=== PATIENT | male | born 1965 | race Caucasian/White ===

== ENCOUNTER 2017-11-15 16:20 | Inpatient (IN) ==
--- NOTE | 2017-11-15 17:40 | ED ---
[facility] General Chief Complaint: Psychiatric Symptoms Stated Complaint: Psych Eval / VCSO Time Seen by Provider: 11/15/17 17:28 Source: patient Mode of arrival: ambulatory Limitations: no limitations History of Present Illness HPI Narrative: 52-year-old male presents to the emergency department under Isaacs act. According to the Isaacs act report the patient is slowly decompensating for some time; he is paranoid, confused, depressed and isolating ; he is refusing to eat, take meds, refuses exams or go to the hospital and he has lost 40 pounds in 6 months; and he requires physical and psychiatric intervention. The patient denies suicidal or homicidal ideations. Denies hallucinations. Denies illicit drug use, tobacco use, alcohol abuse. He has no medical complaints at this time. He denies chest pain, shortness of breath, abdominal pain, nausea, vomiting, change in urine or stool. When I asked him why he has not been eating he says "because I guess I am just not hungry." He has no primary care provider. He says he has allergies to latex. Denies significant past medical history. Has no other medical complaints. No other modifying factors or associated signs and symptoms. Related Data Home Medications Medication Instructions Recorded Confirmed Unable to Obtain Home Meds 11/15/17 11/15/17 Allergies Allergy/AdvReac Type Severity Reaction Status Date / Time No Known Allergies Allergy Unverified 11/15/17 17:17 Review of Systems ROS Unobtainable All other systems reviewed negative except as stated in [facility] Social History Social History Substance History: Unable to Obtain Smoking Status: Unknown if ever smoked How Often Do You Have a Drink Containing Alcohol: Unable to Obtain Recent Travel in [facility] within the Last 8 Weeks: No Recent Out of Country Travel within the Last 8 Weeks: No Immunization History Tetanus Immunization: Unable to Assess Hx Influenza Vaccine This Season: Unable to Assess Exam Narrative Exam Narrative: When I asked the patient if I could do a physical exam he said no. GENERAL: Thin, male patient, in no acute distress SKIN: Warm and dry. HEAD: Atraumatic. Normocephalic. EYES: Pupils equal and round. ENT: Mucosa pink and moist. NECK: Supple. Trachea midline. CARDIOVASCULAR: Regular rate RESPIRATORY: No accessory muscle use. GASTROINTESTINAL: Flat MUSCULOSKELETAL: No obvious deformities. No clubbing. No cyanosis. No edema. NEUROLOGICAL: Awake and alert. No obvious cranial nerve deficits. Motor grossly within normal limits. Normal speech. Moves all extremities. 5/5 strength to all extremities. PSYCHIATRIC: No delusional thought processes. No hallucinations. Course Initial Documented Vital Signs Temperature 98.6 F 11/15/17 16:28 Pulse Rate 90 11/15/17 16:28 Respiratory Rate 20 11/15/17 16:28 Blood Pressure 106/58 L 11/15/17 16:28 Pulse Oximetry 96 11/15/17 16:28 Last Documented Vital Signs Temperature 97.4 F L 11/15/17 22:23 Pulse Rate 66 11/15/17 22:23 Respiratory Rate 18 11/15/17 22:23 Blood Pressure 103/67 11/15/17 22:23 Pulse Oximetry 100 11/15/17 22:23 Medical Decision Making MDM Narrative Medical decision making narrative: Patient presents under a Isaacs act. Physical examination and vital signs are essentially unremarkable. Patient has no medical complaints to report. Psych screen has been ordered. If the laboratory results are unremarkable, the patient will be medically cleared for psychiatric evaluation and disposition. Differential Diagnosis Differential Diagnosis: Depression, psychosis, failure to thrive, medical clearance for psychiatric admission Lab Data Result diagrams: 11/15/17 16:30 11/15/17 16:30 Lab Results 11/15/17 11/15/17 11/15/17 Range/Units 16:30 16:30 16:30 WBC 2.0 L (4.0-11.0) th/mm3 RBC 4.56 (4.50-5.90) mil/mm3 Hgb 14.0 (13.0-17.0) gm/dL Hct 40.2 (39.0-51.0) % MCV 88.1 (80.0-100.0) fL MCH 30.7 (27.0-34.0) pg MCHC 34.8 (32.0-36.0) % RDW 14.7 (11.6-17.2) % Plt Count 119 L (150-450) th/mm3 MPV 9.2 (7.0-11.0) fL Neut % (Auto) 61.8 (16.0-70.0) % Lymph % (Auto) 27.0 (9.0-44.0) % [place] % (Auto) 8.1 H (0.0-8.0) % Eos % (Auto) 2.3 (0.0-4.0) % Baso % (Auto) 0.8 (0.0-2.0) % Neut # (Auto) 1.2 L (1.8-7.7) th/mm3 Lymph # (Auto) 0.5 L (1.0-4.8) th/mm3 [place] # (Auto) 0.2 (0.0-0.9) th/mm3 Eos # (Auto) 0.0 (0.0-0.4) th/mm3 Baso # (Auto) 0.0 (0.0-0.2) th/mm3 WBC Differential . Differential Comment Auto diff final Sodium 140 (136-145) meq/L Potassium 3.2 L (3.5-5.1) meq/L Chloride 100 (98-107) meq/L Carbon Dioxide 21.6 (21.0-32.0) meq/L Anion Gap 18 H (5-15) meq/L BUN 11 (7-18) mg/dL Creatinine 0.98 (0.60-1.30) mg/dL Estimated GFR 81 L (>89) mL/min Random Glucose 66 L (74-106) mg/dL Calcium 9.0 (8.5-10.1) mg/dL Total Bilirubin 0.8 (0.2-1.0) mg/dL AST 31 (15-37) U/L ALT 28 (12-78) U/L Alkaline Phosphatase 76 (45-117) U/L Total Protein 7.0 (6.4-8.2) g/dL Albumin 4.1 (3.4-5.0) g/dL TSH 1.530 (0.358-3.740) uIU/mL Salicylates 2.3 L (2.8-20.0) mg/dL Acetaminophen Less than 2.0 L (10.0-30.0) mcg/mL Serum Alcohol Less than 3 (0-5) mg/dL Discharge Plan Discharge Disposition Patient Disposition: 30 Still Patient Discharge Condition Condition: Stable Physicians Team ED Provider: Lucy Aleman ED Midlevel Provider: Lilia Olivia Primary Care Provider: UNKNOWN, Attending Provider: Ezequiel Peng Status ED Status: Admitted Patient
[2017-11-15 18:36] LABS: Baso % (Auto) 0.8 % (0.0-2.0); Eos % (Auto) 2.3 % (0.0-4.0); Hematocrit 40.2 % (39.0-51.0); Lymph # (Auto) 0.5 th/mm3 (1.0-4.8); Mean Corpuscular HGB Conc 34.8 % (32.0-36.0); Mean Corpuscular Hemoglobin 30.7 pg (27.0-34.0); Mean Corpuscular Volume 88.1 fL (80.0-100.0); Mean Platelet Volume 9.2 fL (7.0-11.0); Mono # (Auto) 0.2 th/mm3 (0.0-0.9); Mono % (Auto) 8.1 % (0.0-8.0); Neut # (Auto) 1.2 th/mm3 (1.8-7.7); Neut % (Auto) 61.8 % (16.0-70.0); Platelet Count 119 th/mm3 (150-450); Red Blood Count 4.56 mil/mm3 (4.50-5.90); Red Cell Distribution Width 14.7 % (11.6-17.2)
[2017-11-15 18:56] LABS: Alanine Aminotransferase 28 U/L (12-78); Albumin 4.1 g/dL (3.4-5.0); Anion Gap 18 meq/L (5-15); Aspartate Aminotransferase 31 U/L (15-37); Blood Urea Nitrogen 11 mg/dL (7-18); Carbon Dioxide 21.6 meq/L (21.0-32.0); Chloride 100 meq/L (98-107); Glomerular Filtration Rate 81 mL/min (>89); Glucose,Random 66 mg/dL (74-106); Potassium 3.2 meq/L (3.5-5.1); Sodium 140 meq/L (136-145)
[2017-11-15 19:07] LABS: Alkaline Phosphatase 76 U/L (45-117)
[2017-11-15] MEDS ORDERED: LORazepam 1 MG Tablet PO PRN (21:36)
[2017-11-15] MEDS ORDERED: Acetaminophen 325 MG Tablet PO PRN (21:41)
[2017-11-15] MEDS ORDERED: Aluminum/Magnesium/Simethacone Susp 30 ML UDC PO PRN (21:42)
[2017-11-15] MEDS ORDERED: Haloperidol Inj 5 MG/ML Ampul IM ONE (22:00)
--- NOTE | 2017-11-16 10:40 | P.HPPSY ---
Provisional Diagnosis Admission Date: November 15, 2017 21:41 [place] I.: 1. Schizophrenia, paranoid type, acute exacerbation [place] II.: Deferred Competence Certification of Person's Competence To Provide Express and Informed Consent I have personally examined Valdez Cisneros, a person being served at [facility] on, November 16, 2017 1039. Express and informed consent means consent voluntarily given in writing, by a competent person, after sufficient explanation and disclosure of the subject matter involved to enable the person to make a knowing and willful decision without any element of force, fraud, deceit, duress, or other form of constraint or coercion. This person is 18 years of age or older, is not now known to be incompetent to consent to treatment with a guardian advocate, and does not have a health care surrogate or proxy currently making medical treatment decisions. I have found this person to be one of the following: [] Competent to provide express and informed consent, as defined above, for voluntary admission to this facility and is competent to provide express and informed consent for treatment. He/she has the consistent capacity to make well reasoned, willful, and knowing decisions concerning his or her medical or mental health treatment. The person fully and consistently understands the purpose of the admission for examination/placement and is fully capable of personally exercising all rights assured under [place] [] Incompetent to provide express and informed consent to voluntary admission, and this is incompetent to provide express and informed consent to treatment. The person must be transferred to involuntary status and a petition for a guardian advocate filed with the Circuit Court. [X] Refusing to provide express and informed consent to voluntary admission but is competent to provide express and informed consent for treatment. The person must be discharged or transferred to involuntary status. Form shall be completed within 24 hours of a person's arrival at the receiving facility and filed in the clinical record of each person: 1. Admitted on a voluntary basis 2. Permitted to provide express and informed consent to his/her own treatment 3. Allowed to transfer from involuntary to voluntary status 4. Prior to permitting a person to consent to his or her own treatment after having been previously found incompetent to consent to treatment. History of Present Illness Capacity: Has capacity Chief Complaint: Alleged self-care deficit History of Present Illness: Patient is presently listed as Amelia but is in fact Valdez Bonilla, known to me from his hospitalization under my care in June of this year. He is a 52- year-old male with a history of schizophrenia. He was sent to us under a Isaacs act by psychologist at his facility alleging self-care deficit and in particular 40 pound weight loss in the last month. Patient was seen in the ED by the psychiatric nurse practitioner. EMR reviewed. During his last admission , he was stabilized on Haldol 12.5 mg 4 times daily along with Cogentin. Patient seen and examined with nurse. Chart reviewed. I note that the patient has lost approximately 13 kg since he was here in June. Case discussed with nursing staff. Nurse reports that patient allegedly was not eating well at his facility, although he has eaten voraciously since he has been here at [facility]. On my examination today, the patient presents as somewhat hypoverbal and flat. He endorses auditory hallucinations and says "they say I do not pay attention." He denies any command auditory hallucinations. Denies any suicidal or homicidal ideation. He does admit to some medication nonadherence, saying that he takes his medications "when needed." No reported issues with medication tolerability. A MAR has not been provided by referring facility. No paranoia or other delusions. No mood symptoms. Affect is quite flat. Remainder of the psychiatric ROS is negative. No acute physical complaints. Past psychiatric history: The patient has a history of schizophrenia. He was hospitalized here in June of this year. No reported history of suicide attempts. Family history: No reported family history of mental illness. Chemical dependency history: No reported abuse of drugs or alcohol. Social history: Patient resides at [facility]. He is single with no children. He is on SSI. - Inpatient Certification I certify that the inpatient services were ordered in accordance with Medicare regulations governing the order. This includes certification that hospital inpatient services are reasonable and necessary and in the case of services not specified as inpatient-only under 42 CFR 419.22(n), that they are appropriately provided as inpatient services in accordance to with the 2-midnight benchmark under 43 CFR 412.3(e) I certify that inpatient psychiatric hospital services are medically necessary. Evaluation and treatment and/or diagnostic testing are expected to improve the patient's condition. The patient needs on a daily basis, active treatment furnished directly by or requiring the supervision of inpatient psychiatric facility personnel. Estimated Total Length of Stay (Days): 7 (5-7) Plans for Post Hospital Care: Other ([facility]) Review of Systems All other systems reviewed negative except as stated in HPI (Limitation: Poor historian) [facility] - History History Provided By: Medical Record - Tobacco History Smoking Status: Unknown if ever smoked - Alcohol History How Often Do You Have a Drink Containing Alcohol: Unable to Obtain - Substance Use History Substance History: Unable to Obtain - Travel History Recent Travel in the [place] Within the Last 8 Weeks: No Recent Travel Out of the Country Within the Last 8 Weeks: No - Immunization History Tetanus Immunization: Unable to Assess Hx Influenza Vaccine This Season: Unable to Assess Quality Measures - Patient Strengths Patient's strengths (minimum of 2): In a monitored setting. Verbally fluent. Medications and Allergies Active Medications: Active Medications Acetaminophen (Tylenol) 650 mg PO Q4H PRN PRN Reason: SEE LABEL COMMENTS Al Hydrox/Mg Hydrox/Simethicone (Mag-Al Plus Susp Liq) 30 ml PO Q6H PRN PRN Reason: DYSPEPSIA Al Hydroxide/Mg Hydroxide (Milk Of Magnesia Liq) 30 ml PO DAILY PRN PRN Reason: CONSTIPATION Diphenhydramine HCl (Benadryl) 50 mg PO Q12H PRN PRN Reason: SEE LABEL COMMENTS Diphenhydramine HCl (Benadryl Inj) 50 mg IM Q6H PRN PRN Reason: SEE LABEL COMMENTS Diphenhydramine HCl (Benadryl) 50 mg PO HS PRN PRN Reason: SEE LABEL COMMENTS Diphenhydramine HCl (Benadryl Inj) 50 mg IM HS PRN PRN Reason: SEE LABEL COMMENTS Levothyroxine Sodium (Synthroid) 25 mcg PO DAILY@0600 JORI Lorazepam (Ativan Inj) 1 mg IM Q6H PRN PRN Reason: SEE LABEL COMMENTS Lorazepam (Ativan) 1 mg PO Q6H PRN PRN Reason: SEE LABEL COMMENTS Pravastatin Sodium (Pravachol) 80 mg PO HS JORI Propranolol HCl (Inderal) 10 mg PO DAILY JORI Allergies Allergy/AdvReac Type Severity Reaction Status Date / Time No Known Allergies Allergy Unverified 11/15/17 17:17 Home Medications Medication Instructions Recorded Confirmed Type Unable to Obtain Home Meds 11/15/17 11/15/17 History Results - Labs CBC & Chem 7: 11/15/17 16:30 11/15/17 16:30 Labs: Laboratory Results - last 24 hr 11/15/17 11/15/17 11/15/17 16:30 16:30 16:30 WBC 2.0 L RBC 4.56 Hgb 14.0 Hct 40.2 MCV 88.1 MCH 30.7 MCHC 34.8 RDW 14.7 Plt Count 119 L MPV 9.2 Neut % (Auto) 61.8 Lymph % (Auto) 27.0 [place] % (Auto) 8.1 H Eos % (Auto) 2.3 Baso % (Auto) 0.8 Neut # (Auto) 1.2 L Lymph # (Auto) 0.5 L [place] # (Auto) 0.2 Eos # (Auto) 0.0 Baso # (Auto) 0.0 WBC Differential . Differential Comment Auto diff final Sodium 140 Potassium 3.2 L Chloride 100 Carbon Dioxide 21.6 Anion Gap 18 H BUN 11 Creatinine 0.98 Estimated GFR 81 L Random Glucose 66 L Calcium 9.0 Total Bilirubin 0.8 AST 31 ALT 28 Alkaline Phosphatase 76 Total Protein 7.0 Albumin 4.1 TSH 1.530 Salicylates 2.3 L Acetaminophen Less than 2.0 L Serum Alcohol Less than 3 Labs reviewed. Leukopenia and thrombocytopenia appear to be new. Hypokalemia noted. Exam Vital signs: Vital Signs 11/15/17 16:28 11/15/17 22:23 Temperature 98.6 F 97.4 F L Pulse Rate 90 66 Respiratory Rate 20 18 Blood Pressure 106/58 L 103/67 Pulse Oximetry 96 100 Intake & Output 11/15/17 11/16/17 11/16/17 18:59 06:59 18:59 Weight 63.503 kg 53.2 kg Other: Weight On Admission 53.2 kg Narrative: Physical examination completed by ED provider. On my examination today, the patient appears to be in no acute physical distress. No motor abnormalities noted. Labs and vital signs reviewed: Mental Status Examination Appearance: Other (Fair) Consciousness: Alert Orientation: Person, Place (At least) Motor Activity: Other (Somewhat psychomotor slowed) Speech: Hesitant, Slow Language: Adequate Fund of Knowledge: Adequate Attention and Concentration: Adequate Memory: Unremarkable (Grossly intact on clinical exam) Mood: Other (No reported issues with mood) Affect: Flat Thought Process & Associations: Intact, Logical, Linear Thought Content: Hallucinations Hallucination Type: Auditory Delusion Type: None Suicidal Ideation: No Suicidal Plan: No Suicidal Intention: No Homicidal Ideation: No Homicidal Plan: No Homicidal Intention: No Mental Status Exam Remarks: Insight and judgment are perhaps fair to poor Assessment and Plan - Assessment (1) Schizophrenia, paranoid type Code(s): F20.0 - Paranoid schizophrenia Status: Acute - Plan Plan: 52-year-old male with psychiatric history as detailed above who presents under a Isaacs act from his facility alleging self-care deficit. It does appear that the patient has lost 13 kg since his last visit here. He reports some medication nonadherence. I will plan to admit the patient to the inpatient psychiatric unit for safety, observation and stabilization. Admit inpatient. Patient is declining to consent for voluntary admission. Involuntary status. Patient retains capacity to consent for medication. Resume Haldol but adjust dosing to try to improve adherence: 20 mg twice daily. To consider long-acting injectable Haldol Decanoate. Adjust scheduled Cogentin similarly to 3 mg twice daily. Additional Cogentin as needed for EPS, Benadryl as needed for sleep, Atarax as needed for anxiety. Check CBC and CMP to follow up on laboratory abnormalities. If leukopenia persists, to consider hematology consultation. Check EKG for QTC. Dietitian consultation given weight loss. Vitals every shift. Counselor to see. Disposition planning. Estimated length of stay: 5-7 days. Justification for Continued Inpatient Stay: See above Discharge Planning: Pending psychiatric stabilization Request Healthcare Surrogate/Guardian Advocate?: No
[2017-11-16] MEDS ORDERED: Benztropine Inj 2 MG/2 ML Ampul IM PRN (10:56)
--- NOTE | 2017-11-16 18:03 | ECG ---
Date Performed: 11/16/2017 Time Performed: 15:47:44 PTAGE: 52 years EKG: Sinus rhythm INCOMPLETE RIGHT BUNDLE BRANCH BLOCK BORDERLINE ECG NO PREVIOUS TRACING DOCTOR: Oksana Torres Interpretating Date/Time 11/16/2017 18:01:57
--- NOTE | 2017-11-16 18:52 | P.DIET ---
Nutritional Evaluation Type of nutrition evaluation: initial Nutrition consult regarding: Diet Evaluation Nutrition screening: [facility] Screening comments: [facility] for other-pt w/ a 13kg wt loss since June per EMR Subjective Subjective Comments: Pt eating dinner when visited. Pt could not say what his wt was prior to recent wt loss. Pt does say that his lowest wt was 89-lb, then added, "but that wt didnt count". Pt is missing a few teeth; however, says he has no problem chewing. Pt receptive to receiving double portions and says he will drink two Ensures daily. Nursing reports pt eating three trays of food today for breakfast. Objective - Diagnosis Paranoid Schizophrenia - Objective Media body weight: 72.7 kg % IBW: 73 Body Weight Used for Calculations: Actual Energy Needs - Lower Range (kCal/kg): 35 Energy Needs - Upper Range (kCal/kg): 40 Lower Limit kCal/kg (kCals): 1,862 Upper Limit kCal/kg (kCals): 2,128 Lower Limit Protein Factor (Grams per Kg): 1.2 Upper Limit Protein Factor (Grams per Kg): 1.5 Lower Protein Needs (Protein): 64 Upper Protein Needs (Protein): 80 Fluid Factor (ml/kg): 35 Estimated Fluid Needs (ml): 1,862 Dietitian Reviewed in Medical Record: Current diet, Curent medications, Intake & Output, Labs, Medical history Diet Order: Regular Oral Diet Intake Amount: Excellent 90%+ Assessment Assessment: Pt is at nutritional risk r/t recent wt loss w/low BMI 17.3. Pt has a good appetite w/100% for meals. Send Double Portions for meals. Send Ensure Enlive bid to offer 350 kcal and 20g Protein per serving. Labs reviewed. Dietitian following. Recommendations: 1.Send Double Portions for meals 2.Send Ensure Enlive bid 3.Dietitian following Dietitian to Monitor: Lab values, Supplement acceptance, Intake & Output, Weight change, PO Intake
[2017-11-17] MEDS: Propranolol 10 MG Tablet PO SCH (09:24)
[2017-11-17 09:54] LABS: Baso % (Auto) 0.3 % (0.0-2.0); Eos # (Auto) 0.1 th/mm3 (0.0-0.4); Eos % (Auto) 2.8 % (0.0-4.0); Hematocrit 43.7 % (39.0-51.0); Hemoglobin 14.7 gm/dL (13.0-17.0); Lymph # (Auto) 0.7 th/mm3 (1.0-4.8); Lymph % (Auto) 22.4 % (9.0-44.0); Mean Corpuscular HGB Conc 33.6 % (32.0-36.0); Mean Corpuscular Volume 89.3 fL (80.0-100.0); Mean Platelet Volume 9.2 fL (7.0-11.0); Mono # (Auto) 0.2 th/mm3 (0.0-0.9); Mono % (Auto) 6.9 % (0.0-8.0); Neut % (Auto) 67.6 % (16.0-70.0); Platelet Count 114 th/mm3 (150-450); Red Blood Count 4.89 mil/mm3 (4.50-5.90); Red Cell Distribution Width 15.2 % (11.6-17.2)
[2017-11-17 10:08] LABS: Albumin 3.8 g/dL (3.4-5.0); Anion Gap 9 meq/L (5-15); Aspartate Aminotransferase 28 U/L (15-37); Blood Urea Nitrogen 10 mg/dL (7-18); Calcium 9.3 mg/dL (8.5-10.1); Carbon Dioxide 31.2 meq/L (21.0-32.0); Chloride 101 meq/L (98-107); Glomerular Filtration Rate 78 mL/min (>89); Glucose,Random 159 mg/dL (74-106); Potassium 3.2 meq/L (3.5-5.1); Sodium 141 meq/L (136-145)
[2017-11-17 10:09] LABS: Alanine Aminotransferase 27 U/L (12-78)
[2017-11-17 10:11] LABS: Alkaline Phosphatase 102 U/L (45-117); Total Protein 6.9 g/dL (6.4-8.2)
--- NOTE | 2017-11-17 11:15 | P.PNPSY ---
Subjective Chief Complaint: Alleged self-care deficit Remarks: Patient seen and examined with nurse. Chart reviewed. Case discussed with nursing staff. Patient noted to be pleasant and medication compliant. Eating well. He does respond to internal stimuli somewhat. On my examination today, the patient is sitting in the day area. He is calm and cooperative. He denies any SI or HI. Denies any AVH although he does seem to be a little internally preoccupied. He displays a good sense of humor and makes some jokes with this provider and the nurse. Affect is more reactive. No medication side effects. No physical complaints. Vital Signs Temp Pulse Resp BP Pulse Ox 11/17/17 05:36 98.0 F 57 L 17 91/54 L 96 11/16/17 18:00 98.3 F 61 18 97/60 L 97 Laboratory Results - last 24 hr 11/17/17 11/17/17 09:03 09:03 WBC 3.0 L RBC 4.89 Hgb 14.7 Hct 43.7 MCV 89.3 MCH 30.0 MCHC 33.6 RDW 15.2 Plt Count 114 L MPV 9.2 Neut % (Auto) 67.6 Lymph % (Auto) 22.4 [place] % (Auto) 6.9 Eos % (Auto) 2.8 Baso % (Auto) 0.3 Neut # (Auto) 2.0 Lymph # (Auto) 0.7 L [place] # (Auto) 0.2 Eos # (Auto) 0.1 Baso # (Auto) 0.0 WBC Differential . Differential Comment Auto diff final Sodium 141 Potassium 3.2 L Chloride 101 Carbon Dioxide 31.2 D Anion Gap 9 BUN 10 Creatinine 1.01 Estimated GFR 78 L Random Glucose 159 H Calcium 9.3 Total Bilirubin 0.5 AST 28 ALT 27 Alkaline Phosphatase 102 Total Protein 6.9 Albumin 3.8 Labs reviewed. Leukopenia improved. Thrombocytopenia stable. Ongoing hypokalemia, repleted. Review of Systems All other systems reviewed negative except as stated in HPI Mental Status Examination Appearance: Other (Remains fair) Consciousness: Alert Orientation: Person, Place (At least) Motor Activity: Other (No abnormal motor movements noted) Speech: Hesitant, Slow Language: Adequate Fund of Knowledge: Adequate Attention and Concentration: Adequate Memory: Unremarkable (Grossly intact on clinical exam) Mood: Appropriate Affect: Blunt (More reactive) Thought Process & Associations: Intact, Logical, Linear Thought Content: Hallucinations Hallucination Type: Auditory (Remains a little internally stimulated) Delusion Type: None Suicidal Ideation: No Suicidal Plan: No Suicidal Intention: No Homicidal Ideation: No Homicidal Plan: No Homicidal Intention: No Mental Status Exam Remarks: Insight and judgment are perhaps fair to poor Assessment and Plan - Assessment (1) Schizophrenia, paranoid type Code(s): F20.0 - Paranoid schizophrenia Status: Acute - Plan Plan: Continue current psychotropics as ordered. Patient seems to be improving with this regimen. Patient's oral intake on the unit is good, and I wonder if he is simply not being prompted to take a meal at his facility. I have asked the counselor to try to get the patient into a more structured [facility]. Dietitian input noted and appreciated. Continue other medications and care as ordered. Justification for Continued Inpatient Stay: Risk for decompensation in less restrictive environment Discharge Planning: Possibly new placement. Case discussed with counselor. Request Healthcare Surrogate/Guardian Advocate?: No
[2017-11-17] MEDS ORDERED: Potassium Chloride 10 MEQ ER Capsule PO ONE (12:50)
--- NOTE | 2017-11-17 13:33 | P.CONPSY ---
Provisional Diagnosis Admission Date: November 15, 2017 21:41 [place].: 1. Schizophrenia, paranoid type, acute exacerbation [place] II.: Deferred History of Present Illness Service: Psychiatry Consult date: 11/17/17 Requesting Physician: Lasha Tobin Reason for Consult: Second opinion Primary Care Provider: UNKNOWN History of Present Illness: Patient is a 52-year-old man, with a history of schizophrenia, prior psychiatric admissions, no previous suicide attempt was brought under Isaacs act by psychologist from his facility ([facility]) due to concerns for self-care deficit with significant weight loss as well as auditory hallucinations. Patient was found in day room eating breakfast noted be superficially cooperative stating that he is feeling "okay" stating that he had no difficulty sleeping and states that he was not told why he was brought into the hospital the Isaacs act. Patient states that he had been refusing medications and states even longer needs them but that he had taken that before due to "someone in me" . We did not want to continue to elaborate. When attempted to obtain more history patient refused to continue conversation and continue to eat his breakfast. PMFSH - History History Provided By: Medical Record - Tobacco History Smoking Status: Unknown if ever smoked - Alcohol History How Often Do You Have a Drink Containing Alcohol: Unable to Obtain - Substance Use History Substance History: Unable to Obtain - Travel History Recent Travel in the [place] Within the Last 8 Weeks: No Recent Travel Out of the Country Within the Last 8 Weeks: No - Immunization History Tetanus Immunization: Unable to Assess Hx Influenza Vaccine This Season: Unable to Assess Medications and Allergies Active Medications: Active Medications Acetaminophen (Tylenol) 650 mg PO Q4H PRN PRN Reason: SEE LABEL COMMENTS Al Hydrox/Mg Hydrox/Simethicone (Mag-Al Plus Susp Liq) 30 ml PO Q6H PRN PRN Reason: DYSPEPSIA Al Hydroxide/Mg Hydroxide (Milk Of Magnesia Liq) 30 ml PO DAILY PRN PRN Reason: CONSTIPATION Benztropine Mesylate (Cogentin) 1 mg PO BID PRN PRN Reason: EXTRA PYRAMIDAL SYMPTOMS Benztropine Mesylate (Cogentin) 3 mg PO BID JORI Last Admin: 11/17/17 09:31 Dose: 3 mg Benztropine Mesylate (Cogentin Inj) 1 mg IM Q12HR PRN PRN Reason: EPS, unable to take PO Diphenhydramine HCl (Benadryl) 50 mg PO HS PRN PRN Reason: SEE LABEL COMMENTS Last Admin: 11/16/17 20:35 Dose: 50 mg Haloperidol (Haldol) 20 mg PO BID [facility] Last Admin: 11/17/17 09:27 Dose: 20 mg Hydroxyzine HCl (Atarax) 50 mg PO Q6H PRN PRN Reason: ANXIETY Levothyroxine Sodium (Synthroid) 25 mcg PO DAILY@0600 [facility] Last Admin: 11/17/17 05:24 Dose: 25 mcg Pravastatin Sodium (Pravachol) 80 mg PO HS [facility] Last Admin: 11/16/17 20:34 Dose: 80 mg Propranolol HCl (Inderal) 10 mg PO DAILY [facility] Last Admin: 11/17/17 09:24 Dose: 10 mg Allergies Allergy/AdvReac Type Severity Reaction Status Date / Time No Known Allergies Allergy Unverified 11/15/17 17:17 Home Medications Medication Instructions Recorded Confirmed Type Unable to Obtain Home Meds 11/15/17 11/15/17 History Exam Vital signs: Vital Signs 11/16/17 18:00 11/17/17 05:36 Temperature 98.3 F 98.0 F Pulse Rate 61 57 L Respiratory Rate 18 17 Blood Pressure 97/60 L 91/54 L Pulse Oximetry 97 96 Mental Status Examination Appearance: Disheveled, Other (Remains fair) Consciousness: Alert Orientation: Person, Place (At least) Motor Activity: Other (No abnormal motor movements noted) Speech: Hesitant, Slow Language: Adequate Fund of Knowledge: Adequate Attention and Concentration: Adequate Memory: Unremarkable (Grossly intact on clinical exam) Mood: Appropriate Affect: Blunt (More reactive) Thought Process & Associations: Intact, Logical, Linear Thought Content: Hallucinations Hallucination Type: Auditory (internally preoccupied) Delusion Type: None Suicidal Ideation: No Suicidal Plan: No Suicidal Intention: No Homicidal Ideation: No Homicidal Plan: No Homicidal Intention: No Insight: Poor Judgment: Poor Assessment and Plan - Assessment (1) Schizophrenia, paranoid type Code(s): F20.0 - Paranoid schizophrenia Status: Acute - Plan Plan: I have seen and examined this patient, reviewed the documentation, and I agree and concur with Dr. Tobin assessment and plan. I have completed second opinion for the petition for involuntary hospitalization. Consult appreciated. Justification for Continued Inpatient Stay: At risk of further decompensation a lower level care. Request Healthcare Surrogate/Guardian Advocate?: No
[2017-11-18] MEDS: Propranolol 10 MG Tablet PO SCH (09:34)
--- NOTE | 2017-11-18 11:33 | P.PNPSY ---
Subjective Chief Complaint: Alleged self-care deficit Remarks: Patient seen and examined with counselor and nurse. Chart reviewed. Case discussed with nursing staff. Patient reported to be medication compliant. He did the 'missing finger' trick for the nurse and has been in general displaying a jovial temperament. He is eating well. On my exam, patient is in good spirits. He denies SI/HI. Denies AVH. Denies side effects from medications. No physical complaints. Counselor reports that patient financial representative from [facility] will be out to see the patient on Wednesday. Vital Signs Temp Pulse Resp BP Pulse Ox 11/18/17 06:00 98.1 F 70 16 91/52 L 96 11/17/17 15:44 97.6 F 18 94/54 L 97 Labs reviewed. No new labs. Review of Systems All other systems reviewed negative except as stated in HPI Mental Status Examination Appearance: Appropriate (Fair) Consciousness: Alert Orientation: Person, Place (At least) Motor Activity: Other (No motor abnormalities noted) Speech: Unremarkable Language: Adequate Fund of Knowledge: Adequate Attention and Concentration: Adequate Memory: Unremarkable (Grossly intact on clinical exam) Mood: Appropriate Affect: Blunt (Again more reactive) Thought Process & Associations: Intact, Logical, Linear Thought Content: Appropriate Hallucination Type: None Delusion Type: None Suicidal Ideation: No Suicidal Plan: No Suicidal Intention: No Homicidal Ideation: No Homicidal Plan: No Homicidal Intention: No Insight: Poor Judgment: Poor Assessment and Plan - Assessment (1) Schizophrenia, paranoid type Code(s): F20.0 - Paranoid schizophrenia Status: Acute - Plan Plan: Patient seems to be doing well with current psychotropics. I will continue his regimen unchanged for now. I did suggest to the patient that we initiate a long -acting injectable antipsychotic, but the patient has declined. Continue to monitor on the inpatient unit. Check a CBC, BMP and magnesium in the morning to follow-up laboratory abnormalities. Continue other medications and care as ordered. Justification for Continued Inpatient Stay: High risk for decompensation in less restrictive environment. Discharge Planning: Pending psychiatric stabilization Request Healthcare Surrogate/Guardian Advocate?: No
[2017-11-19 08:44] LABS: Baso % (Auto) 0.6 % (0.0-2.0); Eos # (Auto) 0.1 th/mm3 (0.0-0.4); Eos % (Auto) 3.1 % (0.0-4.0); Hematocrit 39.6 % (39.0-51.0); Hemoglobin 13.3 gm/dL (13.0-17.0); Lymph # (Auto) 1.1 th/mm3 (1.0-4.8); Lymph % (Auto) 34.5 % (9.0-44.0); Mean Corpuscular HGB Conc 33.7 % (32.0-36.0); Mean Corpuscular Hemoglobin 30.3 pg (27.0-34.0); Mean Corpuscular Volume 89.8 fL (80.0-100.0); Mono # (Auto) 0.2 th/mm3 (0.0-0.9); Mono % (Auto) 6.4 % (0.0-8.0); Neut # (Auto) 1.8 th/mm3 (1.8-7.7); Neut % (Auto) 55.4 % (16.0-70.0); Platelet Count 127 th/mm3 (150-450); Red Blood Count 4.41 mil/mm3 (4.50-5.90); Red Cell Distribution Width 15.2 % (11.6-17.2); White Blood Count 3.2 th/mm3 (4.0-11.0)
[2017-11-19] MEDS: Propranolol 10 MG Tablet PO SCH (09:00)
[2017-11-19 09:39] LABS: Anion Gap 6 meq/L (5-15); Blood Urea Nitrogen 12 mg/dL (7-18); Calcium 8.7 mg/dL (8.5-10.1); Carbon Dioxide 31.5 meq/L (21.0-32.0); Chloride 105 meq/L (98-107); Glomerular Filtration Rate Greater Than 89 mL/min (>89); Glucose,Random 120 mg/dL (74-106); Potassium 4.2 meq/L (3.5-5.1); Sodium 142 meq/L (136-145)
--- NOTE | 2017-11-19 11:14 | P.PNPSY ---
Subjective Chief Complaint: Alleged self-care deficit Remarks: Patient seen and examined. Chart reviewed. Case discussed with nursing staff. On my examination today, patient is calm and cooperative. He denies SI or HI. Denies AVH. Denies side effects from medications. No physical complaints. Hopeful for discharge soon, and I discussed plan to have someone from [facility], evaluate the patient on Wednesday. Vital Signs Temp Pulse Resp BP Pulse Ox 11/19/17 06:14 97.8 F 55 L 16 96/52 L 97 11/18/17 18:00 98.7 F 62 17 90/53 L 97 Laboratory Results - last 24 hr 11/19/17 11/19/17 08:11 08:11 WBC 3.2 L RBC 4.41 L Hgb 13.3 Hct 39.6 MCV 89.8 MCH 30.3 MCHC 33.7 RDW 15.2 Plt Count 127 L MPV 9.0 Neut % (Auto) 55.4 Lymph % (Auto) 34.5 M[place]rack[place] % (Auto) 6.4 Eos % (Auto) 3.1 Baso % (Auto) 0.6 Neut # (Auto) 1.8 Lymph # (Auto) 1.1 [place] # (Auto) 0.2 Eos # (Auto) 0.1 Baso # (Auto) 0.0 WBC Differential . Differential Comment Auto diff final Sodium 142 Potassium 4.2 D Chloride 105 Carbon Dioxide 31.5 Anion Gap 6 BUN 12 Creatinine 0.66 Estimated GFR Greater than 89 Random Glucose 120 H Calcium 8.7 Magnesium 2.0 Labs reviewed. Leukopenia improved. Hypokalemia resolved. Magnesium level within normal limits. Review of Systems All other systems reviewed negative except as stated in HPI (Limitation: Poor historian) Mental Status Examination Appearance: Appropriate Consciousness: Alert Orientation: Person, Place (At least) Motor Activity: Other (No abnormal motor movements noted) Speech: Unremarkable Language: Adequate Fund of Knowledge: Adequate Attention and Concentration: Adequate Memory: Unremarkable (Grossly intact on clinical exam) Mood: Appropriate Affect: Blunt (Tending towards flat) Thought Process & Associations: Intact, Logical, Linear Thought Content: Appropriate Hallucination Type: None Delusion Type: None Suicidal Ideation: No Suicidal Plan: No Suicidal Intention: No Homicidal Ideation: No Homicidal Plan: No Homicidal Intention: No Insight: Poor Judgment: Poor Assessment and Plan - Assessment (1) Schizophrenia, paranoid type Code(s): F20.0 - Paranoid schizophrenia Status: Acute - Plan Plan: Continue current psychotropic medications as ordered. Transfer to lower acuity unit. Continue other medications and care as ordered. Justification for Continued Inpatient Stay: Risk for decompensation in less restrictive environment. Discharge Planning: Hopeful for discharge to new [facility] beginning of next week. Request Healthcare Surrogate/Guardian Advocate?: No
[2017-11-20] MEDS: Propranolol 10 MG Tablet PO SCH (11:33)
--- NOTE | 2017-11-20 15:51 | P.PNPSY ---
Subjective Chief Complaint: Alleged self-care deficit Remarks: Patient was seen and case discussed with nursing. Patient is minimally engaged during the interview. Nursing. Poor eye contact. He says whenever he is thinking "me and God." He does deny suicidal or homicidal ideation intent or plan Mental Status Examination Appearance: Appropriate Consciousness: Alert Orientation: Person, Place (At least) Motor Activity: Other (No abnormal motor movements noted) Speech: Unremarkable Language: Adequate Fund of Knowledge: Adequate Attention and Concentration: Adequate Memory: Unremarkable (Grossly intact on clinical exam) Mood: Appropriate Affect: Blunt (Tending towards flat), Other (Apathetic) Thought Process & Associations: Intact, Logical, Linear Thought Content: Appropriate Hallucination Type: None Delusion Type: None Suicidal Ideation: No Suicidal Plan: No Suicidal Intention: No Homicidal Ideation: No Homicidal Plan: No Homicidal Intention: No Insight: Poor Judgment: Poor Assessment and Plan - Assessment (1) Schizophrenia, paranoid type Code(s): F20.0 - Paranoid schizophrenia Status: Acute - Plan Plan: Continue current treatment plan Justification for Continued Inpatient Stay: Patient would decompensate in a less restrictive setting Request Healthcare Surrogate/Guardian Advocate?: No
--- NOTE | 2017-11-21 13:42 | P.PNPSY ---
Subjective Chief Complaint: Alleged self-care deficit Remarks: Patient was seen and case discussed with nursing. Patient remains internally stimulated and oppositional during the interview. There is thought blocking. Poor eye contact with minimal answers. He is compliant with his medications and has not had any behavioral issues Mental Status Examination Appearance: Appropriate Consciousness: Alert Orientation: Person, Place (At least) Motor Activity: Other (No abnormal motor movements noted) Speech: Unremarkable Language: Adequate Fund of Knowledge: Adequate Attention and Concentration: Adequate Memory: Unremarkable (Grossly intact on clinical exam) Mood: Appropriate Affect: Flat, Other (Apathetic) Thought Process & Associations: Intact, Logical, Linear Thought Content: Appropriate Hallucination Type: None Delusion Type: Other (Likely responding to internal stimuli) Suicidal Ideation: No Suicidal Plan: No Suicidal Intention: No Homicidal Ideation: No Homicidal Plan: No Homicidal Intention: No Insight: Poor Judgment: Poor Assessment and Plan - Assessment (1) Schizophrenia, paranoid type Code(s): F20.0 - Paranoid schizophrenia Status: Acute - Plan Plan: Continue current treatment plan Justification for Continued Inpatient Stay: Patient would decompensate in a less restrictive setting Request Healthcare Surrogate/Guardian Advocate?: No
[2017-11-22] MEDS: Propranolol 10 MG Tablet PO SCH (09:24)
--- NOTE | 2017-11-22 11:27 | XR ---
EXAM DATE: 11/22/2017 11:22 AM EDT AGE/SEX: 52 years / Male INDICATIONS: Respiratory disease. CLINICAL DATA: This is the patient's initial encounter. Patient reports that signs and symptoms have been present for 1 day and indicates a pain score of 0/10. MEDICAL/SURGICAL HISTORY: None. None. COMPARISON: No prior exams available for comparison. FINDINGS: The cardiac silhouette is normal in transverse diameter. There is no evidence of pneumonia. There is prominent right paratracheal soft tissue density. Adenopathy or mass cannot be excluded. CT scan is r ecommended if clinically indicated. CONCLUSION: There is no evidence of pneumonia. Possible mediastinal mass. CT scan is recommended if clinically in dicated. Electronically signed by: Lasha Chaudhry MD 11/22/2017 11:25 AM EDT
--- NOTE | 2017-11-22 12:27 | P.PNPSY ---
Subjective Chief Complaint: Alleged self-care deficit Remarks: Patient seen and examined. Chart reviewed. Case discussed with staff. On my examination today, the patient is calm and no behavioral problem. No mood or psychotic symptoms reported. No reported side effects from medications. No physical complaints. Case discussed with community engagement representative from [facility] who will accept the patient, most likely tomorrow. [facility] is requesting a screening chest x-ray, which I have ordered, see results below. Vital Signs Temp Pulse Resp BP Pulse Ox 11/22/17 06:30 98.1 F 80 16 113/59 L 93 L 11/21/17 17:39 98.5 F 82 17 110/63 97 Intake and Output 11/22/17 11/22/17 11/22/17 06:59 14:59 22:59 Other: Weight 56.2 kg Labs reviewed. No new labs. Impressions Chest X-Ray 11/22/17 00:00 CONCLUSION: There is no evidence of pneumonia. Possible mediastinal mass. CT scan is recommended if clinically indicated. Review of Systems other (Limited ROS today) Mental Status Examination Appearance: Appropriate Consciousness: Alert Orientation: Person, Place (At least) Motor Activity: Other (No motor abnormalities noted) Speech: Unremarkable Language: Adequate Mood: Other (Calm) Affect: Blunt Thought Process & Associations: Intact, Logical, Linear Thought Content: Appropriate Hallucination Type: None Delusion Type: None Suicidal Ideation: No Suicidal Plan: No Suicidal Intention: No Homicidal Ideation: No Homicidal Plan: No Homicidal Intention: No Insight: Poor Judgment: Poor Assessment and Plan - Assessment (1) Schizophrenia, paranoid type Code(s): F20.0 - Paranoid schizophrenia Status: Acute - Plan Plan: Continue current psychotropic medications as ordered. I called down to CT, and a chest CT with contrast is recommended to elucidate a mediastinal mass. Depending on imaging findings, to consider hospitalist or perhaps CT surgery consultation versus outpatient follow up. Continue to monitor on inpatient unit. Continue other medications and care as ordered. Justification for Continued Inpatient Stay: High risk for decompensation in less restrictive environment. Possible complicating conditions. Discharge Planning: Possible discharge to [facility] tomorrow. Request Healthcare Surrogate/Guardian Advocate?: No
--- NOTE | 2017-11-22 22:30 | CT ---
EXAM DATE: 11/22/2017 10:07 PM EDT AGE/SEX: 52 years / Male INDICATIONS: Abnormal chest x-ray. CLINICAL DATA: This is the patient's initial encounter. Patient reports that signs and symptoms have been present for 1 day and indicates a pain score of 0/10. MEDICAL/SURGICAL HISTORY: None. None. RADIATION DOSE: 5.6 CTDI (mGy) COMPARISON: No prior exams available for comparison. TECHNIQUE: Multiple contiguous axial images were obtained through the chest during bolus infusion of 75 ml Omnipaque 350 (iohexol) nonionic water-soluble contrast as a single exam dose. Images were obtained in suspended respiration using multiple row detector helical technique. Using automated exp osure control and adjustment of the mA and/or kV according to patient size, radiation dose was kept a s low as reasonably achievable to obtain optimal diagnostic quality images. DICOM format image data is available electronically for review and comparison. FINDINGS: There is no mediastinal mass. The esophagus is dilated superiorly and slightly thickened distally, pr obably from an esophageal motility disorder. There is no hilar, mediastinal or axillary adenopathy. There are trace bilateral pleural effusions. Minimal basilar atelectasis and subsegmental airspace di sease in the lingula and right middle lobe. No acute findings in the upper abdomen. CONCLUSION: 1. Esophagus is dilated with air proximally and some suspected mural thickening distally. There is a probable esophageal motility disorder. 2. Trace bilateral pleural effusions. Minimal subsegmental opacity in the lingula and right middle l obe with some suspected mild cylindrical bronchiectasis in the medial segment right middle lobe. No a denopathy. Electronically signed by: Juancho Little MD 11/22/2017 10:29 PM EDT
[2017-11-23] MEDS: Propranolol 10 MG Tablet PO SCH ×2 (10:23→10:25)
--- NOTE | 2017-11-23 12:36 | P.DIET ---
Nutritional Evaluation Type of nutrition evaluation: follow-up Nutrition consult regarding: Diet Evaluation [place] [facility] [place] [place] [facility] [place] w/ a 13kg wt loss since June per EMR Objective - Diagnosis Paranoid Schizophrenia - Objective [place] body weight: 72.7 kg % IBW: 73 Body Weight Used for Calculations: Actual Energy Needs - Lower Range (kCal/kg): 35 Energy Needs - Upper Range (kCal/kg): 40 Lower Limit kCal/kg (kCals): 1,862 Upper Limit kCal/kg (kCals): 2,128 Lower Limit Protein Factor (Grams per Kg): 1.2 Upper Limit Protein Factor (Grams per Kg): 1.5 Lower Protein Needs (Protein): 64 Upper Protein Needs (Protein): 80 Fluid Factor (ml/kg): 35 Estimated Fluid Needs (ml): 1,862 Dietitian Reviewed in Medical Record: Current diet, Curent medications, Intake & Output, Labs, Medical history Diet Order: Regular Oral Diet Intake Amount: Excellent 90%+ Assessment Assessment: Pt is at nutritional risk r/t recent wt loss. Pt has a good appetite w/100% for meals. Weight has gone up by 3kg's in past week. Pt is receiving Double Portions for meals and Ensure Enlive bid. Labs reviewed. MD notes reviewed. Pt to probably d/c today. Will continue to monitor po intake, clinical course. Recommendations: 1. Double Portions for meals 2. Ensure Enlive bid Dietitian to Monitor: Lab values, Supplement acceptance, Intake & Output, Weight change, PO Intake
--- NOTE | 2017-11-23 12:37 | P.DSPSY ---
Psychiatry Discharge Summary Inpatient Psychiatric care?: Yes Advance Directives: No Mental Health Advance Directive: No Health Care Proxy: No - Admission Admission Date: November 15, 2017 21:41 - Admission Diagnosis (1) Schizophrenia, paranoid type Code(s): F20.0 - Paranoid schizophrenia Brief History: Patient is presently listed as Amelia but is in fact Valdez Bonilla, known to me from his hospitalization under my care in June of this year. He is a 52- year-old male with a history of schizophrenia. He was sent to us under a Isaacs act by psychologist at his facility alleging self-care deficit and in particular 40 pound weight loss in the last month. Patient was seen in the ED by the psychiatric nurse practitioner. EMR reviewed. During his last admission , he was stabilized on Haldol 12.5 mg 4 times daily along with Cogentin. Patient seen and examined with nurse. Chart reviewed. I note that the patient has lost approximately 13 kg since he was here in June. Case discussed with nursing staff. Nurse reports that patient allegedly was not eating well at his facility, although he has eaten voraciously since he has been here at [facility]. On my examination today, the patient presents as somewhat hypoverbal and flat. He endorses auditory hallucinations and says "they say I do not pay attention." He denies any command auditory hallucinations. Denies any suicidal or homicidal ideation. He does admit to some medication nonadherence, saying that he takes his medications "when needed." No reported issues with medication tolerability. A MAR has not been provided by referring facility. No paranoia or other delusions. No mood symptoms. Affect is quite flat. Remainder of the psychiatric ROS is negative. No acute physical complaints. Past psychiatric history: The patient has a history of schizophrenia. He was hospitalized here in June of this year. No reported history of suicide attempts. Family history: No reported family history of mental illness. Chemical dependency history: No reported abuse of drugs or alcohol. Social history: Patient resides at [facility]. He is single with no children. He is on SSI. Tobacco Use In Past 30 Days: No How Often Do You Have a Drink Containing Alcohol: Unable to Obtain Hospital Course: Patient was admitted to a locked, inpatient psychiatric unit. Appropriate precautions were in place throughout patient's hospital stay. Patient was seen and examined on the unit by psychiatry and also visited by counselor. Psychotropic medications were adjusted. Patient tolerated medications well without side effects. He declined a long-acting injectable antipsychotic although this was recommended to him. There was no evidence of any suicidality or homicidality on the unit. Although poor oral intake was alleged in the Isaacs act, the patient was noted to eat readily and gained weight this admission. Out of concern that patient's previous [facility] was not offering enough structure, new GROUP [facility] placement was arranged by the counselor. On the day of discharge: Patient seen and examined with nurse. Chart reviewed. CT chest reveals esophageal dilatation. The patient has no complaints of dysphagia or associated symptoms. I have discussed this finding with Dr. Reynoso from the hospitalist service. Dr. Reynoso has reviewed the images and recommends that the patient follow up outpatient with GI, which I have ordered. Case discussed with nursing staff. No behavioral issues noted overnight. Case discussed in treatment team. On my examination today, the patient denies any suicidal or homicidal ideation, intent or plan. I can elicit no depressive or hypomanic/ manic symptoms, although affect remains somewhat blunted consistent with his chronic psychotic illness. He denies any audiovisual hallucinations. I can elicit no delusional material. No reported side effects from medications. No physical complaints. Suicide and violence risk assessment on day of discharge both suggest lower imminent risk from mental illness, and the patient's level of function is adequate for planned level of outpatient care. Patient has maximized benefit from this inpatient psychiatric hospital stay. He will be discharged to assisted living facility today with psychiatric follow-up as arranged by counselor. Patient is also to follow up with primary care and with GI. I have counseled the patient to return to the psychiatric emergency room for any concerning symptoms as part of a general safety plan. - Discharge Discharge Date: 11/23/17 - Discharge Diagnosis (1) Schizophrenia, paranoid type Diagnosis: Principal (Stabilized) Code(s): F20.0 - Paranoid schizophrenia Status: Acute Discharge Disposition: Assisted Living Facility - Discharge Instructions Discharge Diet: Regular Diet Activities You Can Perform: Weight Bearing As Tolerat - Discharge Time > 30 minutes Mental Status Examination Appearance: Appropriate Consciousness: Alert Orientation: Person, Place (At least) Motor Activity: Normal gait, Other (No motoric abnormalities appreciated) Speech: Unremarkable Language: Adequate Fund of Knowledge: Adequate Attention and Concentration: Adequate Memory: Unremarkable (Grossly intact on clinical exam) Mood: Other (Calm) Affect: Blunt (Tending towards flat) Thought Process & Associations: Intact, Logical, Linear Thought Content: Appropriate Hallucination Type: None Delusion Type: None Suicidal Ideation: No Suicidal Plan: No Suicidal Intention: No Homicidal Ideation: No Homicidal Plan: No Homicidal Intention: No Insight: Poor (Chronic condition) Judgment: Poor (Chronic condition) Discharge/Advance Care Plan - Results Vital Signs: Last Vital Signs Temp 98.1 F 11/22/17 06:30 Pulse 70 11/22/17 17:34 Resp 16 11/22/17 17:34 BP 115/73 11/22/17 17:34 Pulse Ox 100 11/22/17 17:34 Lab Results: Laboratory Results TSH 1.530 uIU/mL (0.358-3.740) 11/15/17 16:30 Summary of Procedures: None done Imaging: ITS Impressions Chest CT 11/22/17 00:00 CONCLUSION: 1. Esophagus is dilated with air proximally and some suspected mural thickening distally. There is a probable esophageal motility disorder. 2. Trace bilateral pleural effusions. Minimal subsegmental opacity in the lingula and right middle lobe with some suspected mild cylindrical bronchiectasis in the medial segment right middle lobe. No adenopathy. Chest X-Ray 11/22/17 00:00 CONCLUSION: There is no evidence of pneumonia. Possible mediastinal mass. CT scan is recommended if clinically indicated. Pending Results: None - Medications Number of antipsychotic medications at discharge: 1 - Discharge Care Plan Goals to Promote Your Health: * To prevent worsening of your condition and complications * To maintain your health at the optimal level Directions to Meet Your Goals: Take your medications as prescribed Follow your dietary instruction Follow activity as directed Keep your appointments as scheduled Take your immunizations and boosters as scheduled If your symptoms worsen call your PCP, if no PCP go to Urgent Care Center or Emergency Room For 24/ questions related to your inpatient stay or results of tests pending at discharge, please contact Dr. Lasha Tobin MD at Smoking is Dangerous to Your Health. Avoid second hand smoking
== END 2017-11-23 14:40 ==
LOC: NEPJ 16:20 → NEDA 21:41 → H270 22:27 → H260 11-19 12:06
PROVIDERS: ADMIT Psychiatry & Neurology Psychiatry; ATTEND Psychiatry & Neurology Psychiatry
DX: Z91.14 Patient's other noncompliance with medication regimen; Z68.1 Body mass index [BMI] 19.9 or less, adult; E87.6 Hypokalemia; R63.4 Abnormal weight loss; D69.6 Thrombocytopenia, unspecified; F41.9 Anxiety disorder, unspecified; F20.0 Paranoid schizophrenia

== ENCOUNTER 2018-01-13 10:52 | Inpatient (IN) ==
[2018-01-13 11:51] LABS: Baso % (Auto) 0.3 % (0.0-2.0); Eos % (Auto) 0.1 % (0.0-4.0); Hematocrit 35.3 % (39.0-51.0); Hemoglobin 12.1 gm/dL (13.0-17.0); Lymph # (Auto) 0.7 th/mm3 (1.0-4.8); Lymph % (Auto) 7.6 % (9.0-44.0); Mean Corpuscular HGB Conc 34.4 % (32.0-36.0); Mean Corpuscular Hemoglobin 31.8 pg (27.0-34.0); Mean Corpuscular Volume 92.5 fL (80.0-100.0); Mean Platelet Volume 8.1 fL (7.0-11.0); Mono # (Auto) 0.5 th/mm3 (0.0-0.9); Mono % (Auto) 5.4 % (0.0-8.0); Neut # (Auto) 7.6 th/mm3 (1.8-7.7); Neut % (Auto) 86.6 % (16.0-70.0); Platelet Count 143 th/mm3 (150-450); Red Blood Count 3.82 mil/mm3 (4.50-5.90); Red Cell Distribution Width 14.9 % (11.6-17.2); White Blood Count 8.8 th/mm3 (4.0-11.0)
[2018-01-13 12:08] LABS: Alanine Aminotransferase 25 U/L (12-78); Albumin 3.6 g/dL (3.4-5.0); Anion Gap 6 meq/L (5-15); Aspartate Aminotransferase 29 U/L (15-37); Blood Urea Nitrogen 22 mg/dL (7-18); Calcium 8.5 mg/dL (8.5-10.1); Carbon Dioxide 28.3 meq/L (21.0-32.0); Chloride 107 meq/L (98-107); Glomerular Filtration Rate 88 mL/min (>89); Glucose,Random 145 mg/dL (74-106); Potassium 3.9 meq/L (3.5-5.1); Sodium 141 meq/L (136-145)
[2018-01-13 12:10] LABS: Alkaline Phosphatase 84 U/L (45-117); Total Protein 6.5 g/dL (6.4-8.2)
--- NOTE | 2018-01-13 12:58 | ED ---
HPI General Chief complaint: Altered Mental Status Stated complaint: Psych Screen Time Seen by Provider: 01/13/18 11:12 Source: patient Limitations: no limitations History of Present Illness HPI narrative: The patient is a 52-year-old male with history of that was brought in because of several episodes of elopement. Patient actually has paperwork from his primary that states that he needs to be in a facility locked down however the patient currently resides at a assisted living facility and [facility] and likely needs a residential facility. He eloped twice yesterday was found by police laying the middle of a 180 and was brought to our facility for evaluation. The patient appears withdrawn and is not agitated is not aggressive and responds to all questions without problems. He has no complaints at this time. Onset (ago): unknown Associated symptoms: denies other symptoms Related Data Home Medications Medication Instructions Recorded Confirmed benztropine 3 mg PO BID 01/10/18 01/13/18 haloperidol 20 mg PO BID 01/10/18 01/13/18 levothyroxine 50 mcg PO DAILY 01/11/18 01/13/18 lorazepam 0.5 mg PO BID 01/11/18 01/13/18 olanzapine 2.5 mg PO HS 01/11/18 01/13/18 pravastatin 80 mg PO HS 01/11/18 01/13/18 propranolol 10 mg PO DAILY 01/11/18 01/13/18 Allergies Allergy/AdvReac Type Severity Reaction Status Date / Time No Known Allergies Allergy Verified 01/13/18 11:16 Review of Systems ROS: all other systems reviewed are negative [facility] Medical History Medical History Dementia (Acute) Hypercholesterolemia (Acute) Hypothyroidism (Acute) Schizophrenia (Acute) Social History Social History Substance History: No History of Abuse Smoking Status: Never smoker How Often Do You Have a Drink Containing Alcohol: Never Recent Travel in [facility] within the Last 8 Weeks: No Recent Out of Country Travel within the Last 8 Weeks: No Immunization History Tetanus Immunization: Unsure Hx Influenza Vaccine This Season: No Exam Narrative Exam Narrative: GENERAL: Alert in no distress cooperative SKIN: Focused skin assessment warm/dry. HEAD: Atraumatic. Normocephalic. EYES: Pupils equal and round. No scleral icterus. No injection or drainage. ENT: No nasal bleeding or discharge. Mucous membranes pink and moist. NECK: Trachea midline. No JVD. CARDIOVASCULAR: Regular rate and rhythm. No murmur appreciated. RESPIRATORY: No accessory muscle use. Clear to auscultation. Breath sounds equal bilaterally. GASTROINTESTINAL: Abdomen soft, non-tender, nondistended. Hepatic and splenic margins not palpable. MUSCULOSKELETAL: No obvious deformities. No clubbing. No cyanosis. No edema. NEUROLOGICAL: Awake and alert. No obvious cranial nerve deficits. Motor grossly within normal limits. Normal speech. PSYCHIATRIC: Patient withdrawn. Not responding to internal stimuli. No signs of acute psychosis. Psych Thought Content: no hallucinations, no homicidality and no obsessions Judgment: poor (Found middle of a 1 8.) Course Hospital Course: Patient calm in the ED in no distress. Initial Documented Vital Signs Temperature 97.9 F 01/13/18 10:58 Pulse Rate 100 H 01/13/18 10:58 Respiratory Rate 18 01/13/18 10:58 Blood Pressure 114/59 L 01/13/18 10:58 Pulse Oximetry 97 01/13/18 10:58 Last Documented Vital Signs Temperature 98.6 F 01/13/18 11:11 Pulse Rate 80 01/13/18 14:00 Respiratory Rate 23 01/13/18 14:00 Blood Pressure 132/62 01/13/18 14:00 Pulse Oximetry 100 01/13/18 14:00 Medical Decision Making MDM Narrative Medical decision making narrative: Patient with schizophrenia and 2 episodes of elopement placed him Isaacs acted the fact that he may pose threat to himself. We did seen his paperwork that his primary care physician had instructed him to be placed to a facility that does have a lockdown however he eloped before he was able to play replace. He was medically clear here and was admitted to psychiatry for further evaluation. Medical Screen Exam Complete: Yes Emergency Medical Condition: Yes Medical Records Medical records reviewed: Yes I reviewed the patient's medical records. Lab Data Lab results reviewed: Yes I reviewed the patient's lab results. Result diagrams: 01/13/18 11:37 01/13/18 11:37 Lab Results 01/13/18 01/13/18 01/13/18 Range/Units 11:36 11:37 11:37 WBC 8.8 (4.0-11.0) th/mm3 RBC 3.82 L (4.50-5.90) mil/mm3 Hgb 12.1 L (13.0-17.0) gm/dL Hct 35.3 L (39.0-51.0) % MCV 92.5 (80.0-100.0) fL MCH 31.8 (27.0-34.0) pg MCHC 34.4 (32.0-36.0) % RDW 14.9 (11.6-17.2) % Plt Count 143 L (150-450) th/mm3 MPV 8.1 (7.0-11.0) fL Neut % (Auto) 86.6 H (16.0-70.0) % Lymph % (Auto) 7.6 L (9.0-44.0) % [place] % (Auto) 5.4 (0.0-8.0) % Eos % (Auto) 0.1 (0.0-4.0) % Baso % (Auto) 0.3 (0.0-2.0) % Neut # (Auto) 7.6 (1.8-7.7) th/mm3 Lymph # (Auto) 0.7 L (1.0-4.8) th/mm3 [place] # (Auto) 0.5 (0.0-0.9) th/mm3 Eos # (Auto) 0.0 (0.0-0.4) th/mm3 Baso # (Auto) 0.0 (0.0-0.2) th/mm3 WBC Differential . Differential Comment Auto diff final Sodium 141 (136-145) meq/L Potassium 3.9 (3.5-5.1) meq/L Chloride 107 (98-107) meq/L Carbon Dioxide 28.3 (21.0-32.0) meq/L Anion Gap 6 (5-15) meq/L BUN 22 H (7-18) mg/dL Creatinine 0.91 (0.60-1.30) mg/dL Estimated GFR 88 L (>89) mL/min POC Glucose 150 H (68-110) mg/dl Random Glucose 145 H (74-106) mg/dL Calcium 8.5 (8.5-10.1) mg/dL Total Bilirubin 0.3 (0.2-1.0) mg/dL AST 29 (15-37) U/L ALT 25 (12-78) U/L Alkaline Phosphatase 84 (45-117) U/L Total Protein 6.5 (6.4-8.2) g/dL Albumin 3.6 (3.4-5.0) g/dL Salicylates (2.8-20.0) mg/dL Acetaminophen Less than 2.0 L (10.0-30.0) mcg/mL Serum Alcohol Less than 3 (0-5) mg/dL 01/13/18 Range/Units 11:37 WBC (4.0-11.0) th/mm3 RBC (4.50-5.90) mil/mm3 Hgb (13.0-17.0) gm/dL Hct (39.0-51.0) % MCV (80.0-100.0) fL MCH (27.0-34.0) pg MCHC (32.0-36.0) % RDW (11.6-17.2) % Plt Count (150-450) th/mm3 MPV (7.0-11.0) fL Neut % (Auto) (16.0-70.0) % Lymph % (Auto) (9.0-44.0) % [place] % (Auto) (0.0-8.0) % Eos % (Auto) (0.0-4.0) % Baso % (Auto) (0.0-2.0) % Neut # (Auto) (1.8-7.7) th/mm3 Lymph # (Auto) (1.0-4.8) th/mm3 [place] # (Auto) (0.0-0.9) th/mm3 Eos # (Auto) (0.0-0.4) th/mm3 Baso # (Auto) (0.0-0.2) th/mm3 WBC Differential Differential Comment Sodium (136-145) meq/L Potassium (3.5-5.1) meq/L Chloride (98-107) meq/L Carbon Dioxide (21.0-32.0) meq/L Anion Gap (5-15) meq/L BUN (7-18) mg/dL Creatinine (0.60-1.30) mg/dL Estimated GFR (>89) mL/min POC Glucose (68-110) mg/dl Random Glucose (74-106) mg/dL Calcium (8.5-10.1) mg/dL Total Bilirubin (0.2-1.0) mg/dL AST (15-37) U/L ALT (12-78) U/L Alkaline Phosphatase (45-117) U/L Total Protein (6.4-8.2) g/dL Albumin (3.4-5.0) g/dL Salicylates Less than 1.7 L (2.8-20.0) mg/dL Acetaminophen (10.0-30.0) mcg/mL Serum Alcohol (0-5) mg/dL Discharge Plan Discharge Disposition Patient Disposition: 30 Still Patient Discharge Condition Condition: Good Discharge Details Diagnosis: Schizophrenia, paranoid type, History of elopement from health care facility Physicians Team ED Provider: David Ku Primary Care Provider: UNKNOWN, Attending Provider: Lasha Tobin Status ED Status: Left Department Discharge Information Discharge Date/Time: 01/13/18 15:29
[2018-01-13] MEDS ORDERED: Aluminum/Magnesium/Simethacone Susp 30 ML UDC PO PRN (17:04)
[2018-01-14] MEDS: Propranolol 10 MG Tablet PO SCH (08:53)
[2018-01-14 09:06] LABS: Baso % (Auto) 0.5 % (0.0-2.0); Eos # (Auto) 0.1 th/mm3 (0.0-0.4); Eos % (Auto) 1.7 % (0.0-4.0); Hematocrit 42.5 % (39.0-51.0); Lymph # (Auto) 1.1 th/mm3 (1.0-4.8); Lymph % (Auto) 29.7 % (9.0-44.0); Mean Corpuscular Hemoglobin 30.8 pg (27.0-34.0); Mean Corpuscular Volume 93.1 fL (80.0-100.0); Mean Platelet Volume 8.3 fL (7.0-11.0); Mono # (Auto) 0.2 th/mm3 (0.0-0.9); Mono % (Auto) 4.1 % (0.0-8.0); Neut # (Auto) 2.4 th/mm3 (1.8-7.7); Platelet Count 168 th/mm3 (150-450); Red Blood Count 4.56 mil/mm3 (4.50-5.90); Red Cell Distribution Width 14.8 % (11.6-17.2); White Blood Count 3.7 th/mm3 (4.0-11.0)
[2018-01-14 09:27] LABS: Calcium 9.1 mg/dL (8.5-10.1); Carbon Dioxide 28.2 meq/L (21.0-32.0); Potassium 3.8 meq/L (3.5-5.1)
[2018-01-14 09:31] LABS: Chol/HDL Ratio 2.03 Ratio; HDL Cholesterol 54.6 mg/dL (40.0-60.0)
--- NOTE | 2018-01-14 10:21 | P.HPPSY ---
Provisional Diagnosis Admission Date: January 13, 2018 14:06 [place] I.: 1. Schizophrenia, paranoid type, acute exacerbation [place] II.: Deferred Competence Certification of Person's Competence To Provide Express and Informed Consent I have personally examined Valdez Bonilla, a person being served at [facility] on, January 14, 2018 1021. Express and informed consent means consent voluntarily given in writing, by a competent person, after sufficient explanation and disclosure of the subject matter involved to enable the person to make a knowing and willful decision without any element of force, fraud, deceit, duress, or other form of constraint or coercion. This person is 18 years of age or older, is not now known to be incompetent to consent to treatment with a guardian advocate, and does not have a health care surrogate or proxy currently making medical treatment decisions. I have found this person to be one of the following: [] Competent to provide express and informed consent, as defined above, for voluntary admission to this facility and is competent to provide express and informed consent for treatment. He/she has the consistent capacity to make well reasoned, willful, and knowing decisions concerning his or her medical or mental health treatment. The person fully and consistently understands the purpose of the admission for examination/placement and is fully capable of personally exercising all rights assured [place] [X] Incompetent to provide express and informed consent to voluntary admission, and this is incompetent to provide express and informed consent to treatment. The person must be transferred to involuntary status and a petition for a guardian advocate filed with the Circuit Court. [] Refusing to provide express and informed consent to voluntary admission but is competent to provide express and informed consent for treatment. The person must be discharged or transferred to involuntary status. Form shall be completed within 24 hours of a person's arrival at the receiving facility and filed in the clinical record of each person: 1. Admitted on a voluntary basis 2. Permitted to provide express and informed consent to his/her own treatment 3. Allowed to transfer from involuntary to voluntary status 4. Prior to permitting a person to consent to his or her own treatment after having been previously found incompetent to consent to treatment. History of Present Illness Capacity: Lacks capacity Chief Complaint: Psychosis History of Present Illness: Mr. Bonilla is a 52-year-old male with a history of schizophrenia who was brought into the ED after repeatedly trying to elope from his facility and ending up in the street. He was placed under the Isaacs act by the ED provider. Reviewing the electronic medical record, I note that the patient was admitted under my care in October of this year. Patient seen and examined with counselor and nurse. Chart reviewed. Case discussed with nursing staff. On my examination today, the patient is sitting calmly in the day area. He is hypoverbal and his affect is flat. He seems fairly apathetic and has a predominance of negative symptoms. He says that he has not been taking his medications for some time because they are "a waste of time." The medication administration record from his facility seems to indicate that he has at least been provided with his medications. He does appears somewhat internally stimulated. He is disheveled. He gives only 1 or 2 word answers to questions. He says he has been brought back into the hospital because of "stupidity." Psychiatric interview is limited because of patient's degree of psychiatric impairment. I am unable to obtain any past medical, family, chemical dependency or social history from the patient for the same reason. No acute physical complaints. I did endeavor to reach out to patient's sister Tasneem Bonilla at the numbers listed in the transfer paperwork from [facility]. I was unable to reach her at either number. I was able to reach the patient's Sister Meggan Jiang. Meggan Jiang did give consent for medications but was somewhat confrontational and faultfinding in our interaction without apparent cause. Despite my gentle and repeated efforts to redirect the conversation to the matter at hand, she preferred to use our time quizzing this provider about unrelated matters and discussing how her mother had diabetes and lived longer than expected by modifying her diet and by juicing. I spent over 10 minutes in telephone consultation with Meggan Jiang. - Inpatient Certification I certify that the inpatient services were ordered in accordance with Medicare regulations governing the order. This includes certification that hospital inpatient services are reasonable and necessary and in the case of services not specified as inpatient-only under 42 CFR 419.22(n), that they are appropriately provided as inpatient services in accordance to with the 2-midnight benchmark under 43 CFR 412.3(e) I certify that inpatient psychiatric hospital services are medically necessary. Evaluation and treatment and/or diagnostic testing are expected to improve the patient's condition. The patient needs on a daily basis, active treatment furnished directly by or requiring the supervision of inpatient psychiatric facility personnel. Estimated Total Length of Stay (Days): 7 Plans for Post Hospital Care: Not yet determined Review of Systems unobtainable due to mental condition PMFSH - History History Provided By: Medical Record - Medical History Medical History: Medical History (Last Reviewed 01/13/18 @ 12:57 by David Ku DO) Dementia Hypercholesterolemia Hypothyroidism Schizophrenia - Tobacco History Smoking Status: Never smoker - Alcohol History How Often Do You Have a Drink Containing Alcohol: Never - Substance Use History Substance History: No History of Abuse - Travel History Recent Travel in the USA Within the Last 8 Weeks: No Recent Travel Out of the Country Within the Last 8 Weeks: No - Immunization History Tetanus Immunization: Unsure Hx Influenza Vaccine This Season: No Quality Measures - Psychiatric History Psychological trauma history: Unable to obtain from patient due to mental condition - Patient Strengths Patient's strengths (minimum of 2): In a monitored setting. Retains some verbal fluency. Medications and Allergies Active Medications: Active Medications Acetaminophen (Tylenol) 650 mg PO Q4H PRN PRN Reason: Pain 1-5 or Temp >101F Al Hydrox/Mg Hydrox/Simethicone (Mag-Al Plus Susp Liq) 30 ml PO Q6H PRN PRN Reason: DYSPEPSIA Al Hydroxide/Mg Hydroxide (Milk Of Magnesia Liq) 30 ml PO Q12H PRN PRN Reason: Mild Constipation Melatonin (Melatonin) 5 mg PO HS PRN PRN Reason: INSOMNIA Nicotine (Habitrol 21 Mg Patch.24 Hr) 1 patch T-DERMAL DAILY PRN PRN Reason: Nicotine craving Patch Removal (Remove Old Patch) 1 each T-DERMAL DAILY JORI Pravastatin Sodium (Pravachol) 80 mg PO HS JORI Last Admin: 01/13/18 20:38 Dose: 80 mg Propranolol HCl (Inderal) 10 mg PO DAILY JORI Last Admin: 01/14/18 08:53 Dose: 10 mg Allergies Allergy/AdvReac Type Severity Reaction Status Date / Time No Known Allergies Allergy Verified 01/13/18 11:16 Home Medications Medication Instructions Recorded Confirmed Type benztropine 3 mg PO BID 01/10/18 01/13/18 History haloperidol 20 mg PO BID 01/10/18 01/13/18 History levothyroxine 50 mcg PO DAILY 01/11/18 01/13/18 History lorazepam 0.5 mg PO BID 01/11/18 01/13/18 History olanzapine 2.5 mg PO HS 01/11/18 01/13/18 History pravastatin 80 mg PO HS 01/11/18 01/13/18 History propranolol 10 mg PO DAILY 01/11/18 01/13/18 History Results - Labs CBC & Chem 7: 01/14/18 08:39 01/14/18 08:39 Labs: Laboratory Results - last 24 hr 01/13/18 01/13/18 01/13/18 11:36 11:37 11:37 WBC 8.8 RBC 3.82 L Hgb 12.1 L Hct 35.3 L MCV 92.5 MCH 31.8 MCHC 34.4 RDW 14.9 Plt Count 143 L MPV 8.1 Neut % (Auto) 86.6 H Lymph % (Auto) 7.6 L [place] % (Auto) 5.4 Eos % (Auto) 0.1 Baso % (Auto) 0.3 Neut # (Auto) 7.6 Lymph # (Auto) 0.7 L [place] # (Auto) 0.5 Eos # (Auto) 0.0 Baso # (Auto) 0.0 WBC Differential . Differential Comment Auto diff final Sodium 141 Potassium 3.9 Chloride 107 Carbon Dioxide 28.3 Anion Gap 6 BUN 22 H Creatinine 0.91 Estimated GFR 88 L POC Glucose 150 H Random Glucose 145 H Calcium 8.5 Total Bilirubin 0.3 AST 29 ALT 25 Alkaline Phosphatase 84 Total Protein 6.5 Albumin 3.6 Triglycerides Cholesterol LDL Cholesterol, Calc HDL Cholesterol Cholesterol/HDL Ratio Salicylates Acetaminophen Less than 2.0 L Serum Alcohol Less than 3 01/13/18 01/14/18 01/14/18 11:37 08:39 08:39 WBC 3.7 L D RBC 4.56 Hgb 14.0 Hct 42.5 MCV 93.1 MCH 30.8 MCHC 33.0 RDW 14.8 Plt Count 168 MPV 8.3 Neut % (Auto) 64.0 Lymph % (Auto) 29.7 [place] % (Auto) 4.1 Eos % (Auto) 1.7 Baso % (Auto) 0.5 Neut # (Auto) 2.4 Lymph # (Auto) 1.1 [place] # (Auto) 0.2 Eos # (Auto) 0.1 Baso # (Auto) 0.0 WBC Differential . Differential Comment Auto diff final Sodium 140 Potassium 3.8 Chloride 103 Carbon Dioxide 28.2 Anion Gap 9 BUN 15 Creatinine 0.92 Estimated GFR 87 L POC Glucose Random Glucose 163 H Calcium 9.1 Total Bilirubin AST ALT Alkaline Phosphatase Total Protein Albumin Triglycerides 100 Cholesterol 111 L LDL Cholesterol, Calc 36 HDL Cholesterol 54.6 Cholesterol/HDL Ratio 2.03 Salicylates Less than 1.7 L Acetaminophen Serum Alcohol Labs reviewed. Leukopenia without granulocytopenia. Exam Vital signs: Vital Signs 01/13/18 10:58 01/13/18 11:11 01/13/18 14:00 Temperature 97.9 F 98.6 F Pulse Rate 100 H 95 H 80 Respiratory Rate 18 20 23 Blood Pressure 114/59 L 129/66 132/62 Pulse Oximetry 97 98 100 01/14/18 06:23 Temperature 98.1 F Pulse Rate 71 Respiratory Rate 17 Blood Pressure 91/53 L Pulse Oximetry 98 Intake & Output 01/13/18 01/14/18 01/14/18 18:59 06:59 18:59 Weight 63.503 kg Narrative: Physical examination was completed by ED provider. On my examination today, the patient appears to be in no acute physical distress. No motor abnormalities noted. Labs and vital signs reviewed. Mental Status Examination Appearance: Disheveled Consciousness: Alert Orientation: Person, Place (At least) Motor Activity: Other (Somewhat psychomotor slowed. No signs of catatonia. No other motor abnormalities noted.) Speech: Hesitant, Slow Language: Other (Short answers) Fund of Knowledge: Inadequate Attention and Concentration: Inadequate Memory: Impaired Mood: Oppositional (Mild) Affect: Flat Thought Process & Associations: Other (Slowed) Thought Content: Thought blocking Hallucination Type: Other (Appears somewhat internally stimulated) Delusion Type: None Suicidal Ideation: No Homicidal Ideation: No Insight: Poor Judgment: Poor Assessment and Plan - Assessment (1) Schizophrenia, paranoid type Code(s): F20.0 - Paranoid schizophrenia Status: Acute - Plan Plan: 52-year-old male with psychiatric history as detailed above who is presently admitted to the inpatient psychiatric unit under a Isaacs act. On my examination today, the patient presents with a perfusion of negative psychotic symptoms although he does have some positive symptoms such as internal stimulation. He reports that he has been nonadherent with his medications, although MAR does seem to indicate he has been provided with them. Patient requires psychiatric hospitalization at this time for safety, observation and stabilization. Admit inpatient. Involuntary status. I have completed first opinion. Consult for second opinion. Request healthcare surrogate and guardian advocate. I will resume prior to admission psychotropic medications to see if it is current decompensation is simply a matter of covert nonadherence. We will pursue mouth checks to ensure that he is taking medications and monitor for other methods of covert nonadherence. Vitals every shift. Counselor to see. Collateral information. Disposition planning. Estimated length of stay: 5-7 days. Justification for Continued Inpatient Stay: See above Discharge Planning: Pending psychiatric stabilization Request Healthcare Surrogate/Guardian Advocate?: Yes
[2018-01-14 13:16] LABS: Hemoglobin A1c 5.1 % (4.3-6.0)
[2018-01-14] MEDS: LORazepam 0.5 MG Tablet PO SCH (21:42)
[2018-01-14] MEDS: OLANZapine 2.5 MG Tablet PO SCH (21:42)
[2018-01-15] MEDS: Levothyroxine 50 MCG Tablet PO SCH ×2 (06:53→09:16)
[2018-01-15 08:19] LABS: Baso % (Auto) 0.8 % (0.0-2.0); Eos # (Auto) 0.1 th/mm3 (0.0-0.4); Eos % (Auto) 2.1 % (0.0-4.0); Hematocrit 35.4 % (39.0-51.0); Hemoglobin 12.3 gm/dL (13.0-17.0); Lymph # (Auto) 1.3 th/mm3 (1.0-4.8); Lymph % (Auto) 30.7 % (9.0-44.0); Mean Corpuscular HGB Conc 34.8 % (32.0-36.0); Mean Corpuscular Hemoglobin 31.9 pg (27.0-34.0); Mean Corpuscular Volume 91.6 fL (80.0-100.0); Mean Platelet Volume 8.4 fL (7.0-11.0); Mono # (Auto) 0.3 th/mm3 (0.0-0.9); Mono % (Auto) 6.5 % (0.0-8.0); Neut # (Auto) 2.6 th/mm3 (1.8-7.7); Neut % (Auto) 59.9 % (16.0-70.0); Platelet Count 144 th/mm3 (150-450); Red Blood Count 3.87 mil/mm3 (4.50-5.90); Red Cell Distribution Width 14.6 % (11.6-17.2); White Blood Count 4.3 th/mm3 (4.0-11.0)
[2018-01-15] MEDS: Propranolol 10 MG Tablet PO SCH (09:06)
[2018-01-15] MEDS: LORazepam 0.5 MG Tablet PO SCH ×2 (09:07→20:28)
--- NOTE | 2018-01-15 14:42 | ECG ---
Date Performed: 01/14/2018 Time Performed: 13:57:07 PTAGE: 52 years EKG: Sinus rhythm POSSIBLE RIGHT VENTRICULAR CONDUCTION DELAY BORDERLINE ECG Since the PREVIOUS TRACING , no significant change noted PREVIOUS TRACIN11/16/2017 15.47 DOCTOR: Alexia Bird Interpretating Date/Time 01/15/2018 14:36:28
--- NOTE | 2018-01-15 14:56 | P.CONPSY ---
Provisional Diagnosis Admission Date: January 13, 2018 14:06 [place] I.: 1. Schizophrenia, paranoid type, acute exacerbation [place] II.: Deferred History of Present Illness Service: Psychiatry Consult date: 01/15/18 Reason for Consult: 2nd opinion Primary Care Provider: UNKNOWN History of Present Illness: Pt was admitted to [facility] due to exacerbation of schizophrenia and attempting to eloping from [facility]. Pt has been observed responding to internal stimuli and thought blocking. He has been withdrawn and disengaged. He stares bizarrely. Staff report that pt has been resistant to hygiene activities and refuses to change out of paper hospital scrubs to clothing. He is paranoid and guarded. He has been compliant with medications. He is noted to be loose in thought process and rambles bizarrely. He engages minimally in interview and walks away abruptly. [facility] - History History Provided By: Medical Record - Medical History Medical History: Medical History (Last Reviewed 01/15/18 @ 19:57 by Karin Dawson MD) Dementia Hypercholesterolemia Hypothyroidism Schizophrenia - Tobacco History Smoking Status: Never smoker - Alcohol History How Often Do You Have a Drink Containing Alcohol: Never - Substance Use History Substance History: No History of Abuse - Travel History Recent Travel in the [place] Within the Last 8 Weeks: No Recent Travel Out of the Country Within the Last 8 Weeks: No - Immunization History Tetanus Immunization: Unsure Hx Influenza Vaccine This Season: No Medications and Allergies Active Medications: Active Medications Acetaminophen (Tylenol) 650 mg PO Q4H PRN PRN Reason: Pain 1-5 or Temp >101F Al Hydrox/Mg Hydrox/Simethicone (Mag-Al Plus Susp Liq) 30 ml PO Q6H PRN PRN Reason: DYSPEPSIA Al Hydroxide/Mg Hydroxide (Milk Of Magnesia Liq) 30 ml PO Q12H PRN PRN Reason: Mild Constipation Benztropine Mesylate (Cogentin) 3 mg PO BID [facility] Last Admin: 01/15/18 09:06 Dose: 3 mg Haloperidol (Haldol) 20 mg PO BID [facility] Last Admin: 01/15/18 09:07 Dose: 20 mg Levothyroxine Sodium (Synthroid) 50 mcg PO DAILY@0600 JORI Lorazepam (Ativan) 0.5 mg PO BID [facility] Last Admin: 01/15/18 09:07 Dose: 0.5 mg Melatonin (Melatonin) 5 mg PO HS PRN PRN Reason: INSOMNIA Nicotine (Habitrol 21 Mg Patch.24 Hr) 1 patch T-DERMAL DAILY PRN PRN Reason: Nicotine craving Olanzapine (Zyprexa) 2.5 mg PO [facility] Last Admin: 01/14/18 21:42 Dose: 2.5 mg Patch Removal (Remove Old Patch) 1 each T-DERMAL DAILY [facility] Last Admin: 01/15/18 09:18 Dose: Not Given Pravastatin Sodium (Pravachol) 80 mg PO [facility] Last Admin: 01/14/18 21:43 Dose: 80 mg Propranolol HCl (Inderal) 10 mg PO DAILY [facility] Last Admin: 01/15/18 09:06 Dose: 10 mg Allergies Allergy/AdvReac Type Severity Reaction Status Date / Time No Known Allergies Allergy Verified 01/13/18 11:16 Home Medications Medication Instructions Recorded Confirmed Type benztropine 3 mg PO BID 01/10/18 01/13/18 History haloperidol 20 mg PO BID 01/10/18 01/13/18 History levothyroxine 50 mcg PO DAILY 01/11/18 01/13/18 History lorazepam 0.5 mg PO BID 01/11/18 01/13/18 History olanzapine 2.5 mg PO HS 01/11/18 01/13/18 History pravastatin 80 mg PO HS 01/11/18 01/13/18 History propranolol 10 mg PO DAILY 01/11/18 01/13/18 History Exam Vital signs: Vital Signs 01/14/18 17:53 01/15/18 05:50 Temperature 98.3 F 97.2 F L Pulse Rate 88 68 Respiratory Rate 17 16 Blood Pressure 110/64 104/57 L Pulse Oximetry 98 98 Mental Status Examination Appearance: Disheveled Consciousness: Alert Orientation: Person, Place (At least) Motor Activity: Other (Somewhat psychomotor slowed. No signs of catatonia. No other motor abnormalities noted.) Speech: Other (rambling) Language: Other (sparse answers) Fund of Knowledge: Inadequate Attention and Concentration: Inadequate Memory: Impaired Mood: Irritable Affect: Flat Thought Process & Associations: Loose associations Thought Content: Bizarre thinking, Thought blocking Hallucination Type: Other (Appears internally stimulated) Delusion Type: Bizarre Suicidal Ideation: No Homicidal Ideation: No Insight: Poor Judgment: Poor Assessment and Plan - Assessment (1) Schizophrenia, paranoid type Code(s): F20.0 - Paranoid schizophrenia Status: Acute - Plan Plan: I agree that pt meets criteria for involuntary hospitalization due to psychosis and self neglect. 2nd opinion paperwork completed Justification for Continued Inpatient Stay: impairments in self care and reality testing Request Healthcare Surrogate/Guardian Advocate?: Yes
[2018-01-15] MEDS: OLANZapine 2.5 MG Tablet PO SCH (20:29)
[2018-01-15] MEDS: Acetaminophen 325 MG Tablet PO PRN (22:25)
[2018-01-16] MEDS: Levothyroxine 50 MCG Tablet PO SCH (06:40)
[2018-01-16] MEDS: LORazepam 0.5 MG Tablet PO SCH ×2 (08:10→20:14)
[2018-01-16] MEDS: Propranolol 10 MG Tablet PO SCH (08:10)
--- NOTE | 2018-01-16 13:38 | P.PNPSY ---
Subjective Chief Complaint: Psychosis Remarks: Medical record reviewed and discussed with nursing staff. TINY Rollins and I spoke with patient in the day room. He is soft spoken and it is difficult to here him. He does not make eye contact. He denies any auditory or visual hallucinations. Nursing report that he has refused to take a shower. I spoke with patient and he has agreed to shower today. Review of Systems All other systems reviewed negative except as stated in HPI Mental Status Examination Appearance: Disheveled Consciousness: Alert Orientation: Person, Place (At least) Motor Activity: Other (Somewhat psychomotor slowed. No signs of catatonia. No other motor abnormalities noted.) Speech: Other (rambling) Language: Other (sparse answers) Fund of Knowledge: Inadequate Attention and Concentration: Inadequate Memory: Impaired Mood: Irritable Affect: Flat Thought Process & Associations: Loose associations Thought Content: Bizarre thinking, Thought blocking Hallucination Type: Other (Appears internally stimulated) Delusion Type: Bizarre Suicidal Ideation: No Homicidal Ideation: No Insight: Poor Judgment: Poor Assessment and Plan - Assessment (1) Schizophrenia, paranoid type Code(s): F20.0 - Paranoid schizophrenia Status: Acute - Plan Plan: Continue current plan of treatment. Justification for Continued Inpatient Stay: Moving patient to a less restrictive level of care may result in his decompensation. Request Healthcare Surrogate/Guardian Advocate?: Yes
[2018-01-16] MEDS: Acetaminophen 325 MG Tablet PO PRN (17:41)
[2018-01-16] MEDS: OLANZapine 2.5 MG Tablet PO SCH (20:14)
[2018-01-17] MEDS: Levothyroxine 50 MCG Tablet PO SCH (05:47)
[2018-01-17] MEDS: Propranolol 10 MG Tablet PO SCH (08:53)
[2018-01-17] MEDS: LORazepam 0.5 MG Tablet PO SCH ×2 (08:53→20:22)
--- NOTE | 2018-01-17 10:19 | P.PNPSY ---
Subjective Chief Complaint: Psychosis Remarks: Patient seen and examined with counselor and nurse. Chart reviewed. Patient does seem to be eating well per nutritional data. Case discussed with nursing staff who reports that the patient has been quiet and guarded but compliant with medications. He does appear to be responding to internal stimuli at times. On my evaluation, the patient is sitting in the day area. He declines to go to his room for evaluation. He does remain somewhat guarded and internally stimulated. He remains hypoverbal and flat. No evident side effects from medications. No physical complaints. Vital Signs Temp Pulse Resp BP Pulse Ox 01/17/18 15:28 97.9 F 68 18 97/55 L 97 01/17/18 08:00 61 18 102/58 L 01/16/18 17:46 98.1 F 87 18 111/55 L 98 Intake and Output 01/17/18 01/17/18 01/17/18 06:59 14:59 22:59 Other: Weight 57.4 kg Review of Systems unobtainable due to mental condition Mental Status Examination Appearance: Disheveled Consciousness: Alert Orientation: Person, Place (At least) Motor Activity: Other (Remains a little psychomotor slowed without signs of catatonia. No motor abnormalities noted otherwise.) Speech: Slow, Other (Soft) Language: Other (Limited responses) Fund of Knowledge: Inadequate Attention and Concentration: Inadequate Memory: Impaired Mood: Irritable Affect: Flat Thought Process & Associations: Circumstantial Thought Content: Bizarre thinking, Thought blocking Hallucination Type: Other (Appears internally stimulated) Delusion Type: Bizarre Suicidal Ideation: No Homicidal Ideation: No Insight: Poor Judgment: Poor Assessment and Plan - Assessment (1) Schizophrenia, paranoid type Code(s): F20.0 - Paranoid schizophrenia Status: Acute - Plan Plan: Titrate nighttime dose of Zyprexa to 5 mg to target residual psychotic symptoms. Continue Haldol as ordered. Continue scheduled Cogentin as ordered. Continue to monitor on the inpatient unit. Continue other medications and care as ordered. Justification for Continued Inpatient Stay: Medication changes. Impairment in reality construction. Risk for decompensation in less restrictive environment. Discharge Planning: Pending psychiatric stabilization. Request Healthcare Surrogate/Guardian Advocate?: Yes
[2018-01-17] MEDS: Acetaminophen 325 MG Tablet PO PRN (20:21)
[2018-01-18] MEDS: Levothyroxine 50 MCG Tablet PO SCH (05:29)
[2018-01-18] MEDS: LORazepam 0.5 MG Tablet PO SCH ×2 (08:41→20:12)
[2018-01-18] MEDS: Propranolol 10 MG Tablet PO SCH (08:42)
--- NOTE | 2018-01-18 10:17 | P.TTN ---
- Patient Problems Problems: 1. Discharge planning 2. Medication compliance 3. Knowledge deficit 4. Lack of coping skills - Progress Toward Goals Provider Present: Dr. Neha Tobin (Dr. Tobin is titrating medications, Dr. Tobin suggested the possibility of exploring with the sister of having patient placed at assisted living facility in the [facility]) - Documentation Teaching Recipient: Patient
--- NOTE | 2018-01-18 11:49 | P.PNPSY ---
Subjective Chief Complaint: Psychosis Remarks: Patient seen and examined with nurse. Chart reviewed. Case discussed with nursing staff. No behavioral management issues noted. Case discussed in treatment team. On my examination today, the patient presents as somewhat disorganized. His speech is quite soft and difficult to understand. He does ask about discharge. He denies any SI or HI. Denies any AVH. He does remain internally stimulated though. Somewhat uncooperative and seems to view conversing with team as an onerous burden. No medication side effects. No physical complaints. Vital Signs Temp Pulse Resp BP Pulse Ox 01/18/18 06:11 97.3 F L 67 18 120/67 97 Intake and Output 01/18/18 01/18/18 01/18/18 06:59 14:59 22:59 Other: Weight 66 kg Weight On Admission 66 kg Labs reviewed. No new labs. Review of Systems unobtainable due to mental condition Mental Status Examination Appearance: Disheveled Consciousness: Alert Orientation: Person, Place (At least) Motor Activity: Other (Somewhat psychomotor slowed) Speech: Slow, Other (Soft) Language: Other (Limited responses) Fund of Knowledge: Inadequate Attention and Concentration: Inadequate Memory: Impaired Mood: Irritable Affect: Flat (Some underlying irritability) Thought Process & Associations: Disorganized Thought Content: Thought blocking Hallucination Type: Other (Remains internally stimulated) Delusion Type: Other (Somewhat guarded) Suicidal Ideation: No Homicidal Ideation: No Insight: Poor Judgment: Poor Assessment and Plan - Assessment (1) Schizophrenia, paranoid type Code(s): F20.0 - Paranoid schizophrenia Status: Acute - Plan Plan: Patient tolerating increased dose of Zyprexa well. Continue current medications as ordered for now but to consider further titration of this medication. Continue to monitor on the inpatient unit. Continue other medications and care as ordered. Justification for Continued Inpatient Stay: Impairment in reality construction. Risk for decompensation in less restrictive environment. Discharge Planning: Possibly new placement pending psychiatric stabilization Request Healthcare Surrogate/Guardian Advocate?: Yes
[2018-01-19] MEDS: Levothyroxine 50 MCG Tablet PO SCH (05:46)
[2018-01-19] MEDS: Propranolol 10 MG Tablet PO SCH (08:40)
[2018-01-19] MEDS: LORazepam 0.5 MG Tablet PO SCH ×2 (08:42→20:26)
--- NOTE | 2018-01-19 13:14 | P.PNPSY ---
Subjective Chief Complaint: Psychosis Remarks: Patient seen and examined with nurse. Chart reviewed. Case discussed with nursing staff. Patient noted to be still somewhat guarded and internally preoccupied. I find the patient in the dayroom. He wishes to conduct the interview there. He remains fairly taciturn overall although perhaps a little bit more interactive. He remains somewhat oppositional and negativistic and in general displays dominant negative psychotic symptoms. No side effects from medications. No physical complaints. Vital Signs Temp Pulse Resp BP Pulse Ox 01/19/18 06:13 97.4 F L 80 16 106/66 100 01/18/18 18:37 98 F 88 18 105/60 100 Labs reviewed. No new labs. Review of Systems All other systems reviewed negative except as stated in HPI (Limitation: Poor historian) Mental Status Examination Appearance: Disheveled Consciousness: Alert Orientation: Person, Place (At least) Motor Activity: Other (Remains a little bit psychomotor slowed but otherwise no motor abnormalities noted) Speech: Slow, Other (Soft) Language: Other (Limited responses) Fund of Knowledge: Inadequate Attention and Concentration: Inadequate Memory: Impaired Mood: Irritable (Mild) Affect: Flat (Some underlying irritability) Thought Process & Associations: Disorganized Thought Content: Thought blocking Hallucination Type: Other (Remains somewhat internally stimulated) Delusion Type: Other (Somewhat guarded) Suicidal Ideation: No Homicidal Ideation: No Insight: Poor Judgment: Poor Assessment and Plan - Assessment (1) Schizophrenia, paranoid type Code(s): F20.0 - Paranoid schizophrenia Status: Acute - Plan Plan: Patient may derive additional benefit from longer time on current dose of antipsychotic, and I will continue with current doses of Zyprexa and Haldol for now. Continue to monitor on inpatient unit. Continue other medications and care as ordered. Justification for Continued Inpatient Stay: Risk for decompensation in less restrictive environment. Discharge Planning: ?New placement. Request Healthcare Surrogate/Guardian Advocate?: Yes
[2018-01-20] MEDS: Levothyroxine 50 MCG Tablet PO SCH (05:48)
[2018-01-20] MEDS: LORazepam 0.5 MG Tablet PO SCH ×2 (08:20→21:01)
[2018-01-20] MEDS: Propranolol 10 MG Tablet PO SCH (08:20)
--- NOTE | 2018-01-20 09:17 | P.PNPSY ---
Subjective Chief Complaint: Psychosis Remarks: Patient seen and case discussed with nursing staff. Chart reviewed. Per nursing staff, patient is more talkative, but his speech is largely nonsensical. For me today, the patient is able to produce some sensible speech , although his thought process overall is disorganized. He does seem somewhat more interactive than less dismissive/negativistic today. No evident side effects from medications. No physical complaints. Vital Signs Temp Pulse Resp BP 01/20/18 06:09 97.7 F 65 16 95/52 L Labs reviewed. No new labs. Review of Systems other (Limited ROS today) Mental Status Examination Appearance: Disheveled Consciousness: Alert Orientation: Person, Place (At least) Motor Activity: Other (No new motor abnormalities noted) Speech: Slow Language: Adequate Fund of Knowledge: Inadequate Attention and Concentration: Inadequate Memory: Impaired Mood: Other (Calm) Affect: Flat Thought Process & Associations: Disorganized Thought Content: Thought blocking (Perhaps a little decreased) Hallucination Type: Other (Remains somewhat internally stimulated) Delusion Type: Other (Somewhat guarded) Suicidal Ideation: No Homicidal Ideation: No Insight: Poor Judgment: Poor Assessment and Plan - Assessment (1) Schizophrenia, paranoid type Code(s): F20.0 - Paranoid schizophrenia Status: Acute - Plan Plan: Titrate Zyprexa to 7.5 mg at bedtime to target psychosis. Continue Haldol as ordered. Continue to monitor on the inpatient unit. Continue other medications and care as ordered. Justification for Continued Inpatient Stay: Medication changes. Impairment in reality construction. High risk for decompensation in less restrictive environment. Discharge Planning: Pending psychiatric stabilization Request Healthcare Surrogate/Guardian Advocate?: Yes
[2018-01-21] MEDS: Propranolol 10 MG Tablet PO SCH (08:36)
[2018-01-21] MEDS: LORazepam 0.5 MG Tablet PO SCH ×2 (08:37→21:02)
--- NOTE | 2018-01-21 10:54 | P.PNPSY ---
Subjective Chief Complaint: Psychosis Remarks: Patient seen and examined with nurse. Chart reviewed. Case discussed with nursing staff. On my examination today, the patient is dozing in a chair in the dayroom. He seems a little more fatigued than usual. He remains fairly negativistic and oppositional. Not interested in extended interview today. No side effects from medications besides some possible sedation. No physical complaints. Patient was assigned a guardian advocate from [facility] yesterday. I spoke with JR RICHARD and reviewed psychotropic medications already consented for by patient' s sister. JR RICHARD consents as well for these medications. Vital Signs Temp Pulse Resp BP Pulse Ox 01/21/18 06:00 98.1 F 74 17 108/52 L 99 01/20/18 17:47 98.1 F 83 16 93/51 L 97 Labs reviewed. No new labs. Review of Systems All other systems reviewed negative except as stated in HPI Mental Status Examination Appearance: Disheveled Consciousness: Alert Orientation: Person, Place (At least) Motor Activity: Other (No motor abnormalities noted) Speech: Hesitant, Slow Language: Adequate Fund of Knowledge: Inadequate Attention and Concentration: Inadequate Memory: Impaired Mood: Oppositional Affect: Flat Thought Process & Associations: Disorganized Thought Content: Thought blocking Hallucination Type: Other (Remains somewhat internally stimulated) Delusion Type: Paranoid Suicidal Ideation: No Homicidal Ideation: No Insight: Poor Judgment: Poor Assessment and Plan - Assessment (1) Schizophrenia, paranoid type Code(s): F20.0 - Paranoid schizophrenia Status: Acute - Plan Plan: Monitor for excessive sedation from antipsychotic medications. To consider tapering Zyprexa back to 5 mg at bedtime. Continue to monitor on inpatient unit. Continue other medications and care as ordered. Justification for Continued Inpatient Stay: Risk for decompensation in less restrictive environment. Discharge Planning: Pending psychiatric stabilization. Request Healthcare Surrogate/Guardian Advocate?: Yes
[2018-01-22] MEDS: Levothyroxine 50 MCG Tablet PO SCH ×2 (06:30→22:25)
[2018-01-22] MEDS: Propranolol 10 MG Tablet PO SCH (08:22)
[2018-01-22] MEDS: LORazepam 0.5 MG Tablet PO SCH ×2 (08:23→21:01)
--- NOTE | 2018-01-22 17:32 | P.PNPSY ---
Subjective Chief Complaint: Psychosis Remarks: Reviewed electronic medical records and discussed case with staff. Follow-up was conducted in the day room with naz Washington present. His nurse Alisa reports that he became unsteady on his feet earlier today. She also states that he was found in someone else's room looking through their clothes and had been incontinent of urine. Patient is largely mute throughout the interview. He is observed eating his dinner and seems to have a healthy appetite. However , he seems to be very disorganized. In speaking with the psych techs there reported that through the day he became steadier on his feet. Therefore, I am decreasing his nighttime Zyprexa dose to [address] Tobin suggestion. Mental Status Examination Appearance: Disheveled Consciousness: Alert Orientation: Person, Place (At least) Motor Activity: Other (No motor abnormalities noted) Speech: Hesitant, Slow Language: Adequate Fund of Knowledge: Inadequate Attention and Concentration: Inadequate Memory: Impaired Mood: Oppositional Affect: Flat Thought Process & Associations: Disorganized Thought Content: Thought blocking Hallucination Type: Other (Remains somewhat internally stimulated) Delusion Type: Paranoid Suicidal Ideation: No Homicidal Ideation: No Insight: Poor Judgment: Poor Assessment and Plan - Assessment (1) Schizophrenia, paranoid type Code(s): F20.0 - Paranoid schizophrenia Status: Acute - Plan Plan: Patient will be reevaluated Wednesday by the attending psychiatrist. Continue with current treatment plan. Justification for Continued Inpatient Stay: Moving this patient to a less restrictive environment would likely result in decompensation. Request Healthcare Surrogate/Guardian Advocate?: Yes
[2018-01-23] MEDS: Levothyroxine 50 MCG Tablet PO SCH (07:24)
[2018-01-23] MEDS: LORazepam 0.5 MG Tablet PO SCH ×2 (08:39→20:37)
[2018-01-23] MEDS: Propranolol 10 MG Tablet PO SCH (08:39)
--- NOTE | 2018-01-23 15:33 | P.PNPSY ---
Subjective Chief Complaint: Psychosis Remarks: Reviewed electronic medical records and discussed case with staff. Follow-up was conducted in the patient's room with TINY Rollins present. Patient is extremely quiet and will not answer question. Nursing reports that he is incontinent of urine and unsteady on his feet. The previous notes indicate that a titration of his Zyprexa has been in progress. Will continue to monitor. Review of Systems All other systems reviewed negative except as stated in HPI Mental Status Examination Appearance: Disheveled Consciousness: Alert Orientation: Person, Place (At least) Motor Activity: Other (No motor abnormalities noted) Speech: Hesitant, Slow Language: Adequate Fund of Knowledge: Inadequate Attention and Concentration: Inadequate Memory: Impaired Mood: Oppositional Affect: Flat Thought Process & Associations: Disorganized Thought Content: Thought blocking Hallucination Type: Other (Remains somewhat internally stimulated) Delusion Type: Paranoid Suicidal Ideation: No Suicidal Plan: No Suicidal Intention: No Homicidal Ideation: No Homicidal Plan: No Homicidal Intention: No Insight: Poor Judgment: Poor Assessment and Plan - Assessment (1) Schizophrenia, paranoid type Code(s): F20.0 - Paranoid schizophrenia Status: Acute - Plan Plan: Patient will be reevaluated Wednesday by the attending psychiatrist. Continue with current treatment plan. Justification for Continued Inpatient Stay: Moving patient to a less restrictive environment may result in his decompensation. He may be more appropriate on 2500 for assistance with meals and ADLS. Request Healthcare Surrogate/Guardian Advocate?: Yes
[2018-01-23 16:22] LABS: Amphetamine Screen,Urine Neg (Neg); Barbiturate Screen,Urine Neg (Neg); Cannabinoid Screen,Urine Neg (Neg); Cocaine Screen,Urine Neg (Neg)
[2018-01-23 16:23] LABS: Opiate Screen,Urine Neg (Neg)
[2018-01-23 17:35] LABS: Bilirubin,Urine Negative (Negative); Clarity,Urine Clear (Clear); Color,Urine Straw (Yellw/Straw); Glucose,Urine (UA) Negative (Negative); Leukocyte Esterase,Urine Negative (Negative); Mucus,Urine Few /lpf (Occasional); Nitrite,Urine Negative (Negative); Specific Gravity,Urine 1.006 (1.002-1.035)
[2018-01-24] MEDS: Levothyroxine 50 MCG Tablet PO SCH (05:58)
[2018-01-24] MEDS: LORazepam 0.5 MG Tablet PO SCH ×2 (08:31→20:27)
[2018-01-24] MEDS: Propranolol 10 MG Tablet PO SCH (08:31)
--- NOTE | 2018-01-24 09:51 | P.PNPSY ---
Subjective Chief Complaint: Psychosis Remarks: Patient seen and examined with nurse. Chart reviewed. Case discussed with nursing staff who expresses concerns regarding patient's ability to swallow and regarding his gait. I have requested speech therapy and physical therapy evaluation for these issues. Patient also noted to be incontinent of urine over the weekend although urinalysis was unrevealing. On my exam, the patient is sitting in the day area. He remains somewhat oppositional and negativistic, although he is a little bit more interactive today. He says for example that he would like to conduct the interview "right here" by which she means in the day area. When I try to inquire after psychiatric symptomatology he initially says "I had rather not" but then later says that he is "feeling all the same way." No side effects from medications. No physical complaints. Vital Signs Temp Pulse Resp BP Pulse Ox 01/24/18 06:00 98 F 85 17 122/73 96 Intake and Output 01/24/18 01/24/18 01/24/18 06:59 14:59 22:59 Other: Weight 58.7 kg Laboratory Results - last 24 hr 01/23/18 01/23/18 15:06 15:06 Urine Color Straw Urine Clarity Clear Urine pH 6.0 Ur Specific [place] 1.006 Urine Protein Negative Urine Glucose (UA) Negative Urine Ketones Negative Urine Occult Blood Negative Urine Nitrate Negative Urine Bilirubin Negative Urine Urobilinogen Less than 2 Ur Leukocyte Esterase Negative Urine WBC Less than 1 Urine Mucus Few H Micro UA Comment Culture not ind Ur Microscopic Review Not Reportable Urine Culture Comments Culture not ind Urine Opiates Screen Neg Ur Barbiturates Screen Neg Ur Amphetamines Screen Neg U Benzodiazepines Scrn Neg Urine Cocaine Screen Neg U Cannabinoids Screen Neg Labs reviewed. Review of Systems unobtainable due to mental condition Mental Status Examination Appearance: Disheveled Consciousness: Alert Orientation: Person, Place (At least) Motor Activity: Other (No motoric abnormalities noted) Speech: Hesitant Language: Adequate Fund of Knowledge: Inadequate Attention and Concentration: Inadequate Memory: Impaired Mood: Oppositional Affect: Flat Thought Process & Associations: Disorganized Thought Content: Thought blocking Hallucination Type: Other (Somewhat internally preoccupied) Delusion Type: Other (Guarded) Suicidal Ideation: No (No SI voiced) Homicidal Ideation: No (No HI voiced) Insight: Poor Judgment: Poor Assessment and Plan - Assessment (1) Schizophrenia, paranoid type Code(s): F20.0 - Paranoid schizophrenia Status: Acute - Plan Plan: Discontinue Zyprexa in case effects of this medication (e.g. sedating effects) are related to issues with gait, incontinence of urine, etc. as observed by nursing staff. Request PT and ST eval. Transfer to 2500 unit. Continue other medications and care as ordered. Justification for Continued Inpatient Stay: Medication changes. High risk for decompensation in less restrictive environment. Discharge Planning: Pending psychiatric stabilization Request Healthcare Surrogate/Guardian Advocate?: Yes
[2018-01-25] MEDS: Levothyroxine 50 MCG Tablet PO SCH (06:22)
[2018-01-25] MEDS: LORazepam 0.5 MG Tablet PO SCH ×2 (09:17→20:45)
[2018-01-25] MEDS: Propranolol 10 MG Tablet PO SCH (09:21)
--- NOTE | 2018-01-25 09:51 | P.PNPSY ---
Subjective Chief Complaint: Psychosis Remarks: Reviewed electronic medical records and discussed case with staff. Follow-up was conducted in patient's room with TINY Camarillo present. Patient had initially refused his medications however with some prompting he did finally take them. He continues to be mute so the follow-up was brief. He does follow some directions with much prompting. Mental Status Examination Appearance: Disheveled Consciousness: Alert Orientation: Person, Place (At least) Motor Activity: Other (No motoric abnormalities noted) Speech: Hesitant Language: Adequate Fund of Knowledge: Inadequate Attention and Concentration: Inadequate Memory: Impaired Mood: Oppositional Affect: Flat Thought Process & Associations: Disorganized Thought Content: Thought blocking Hallucination Type: Other (Somewhat internally preoccupied) Delusion Type: Other (Guarded) Suicidal Ideation: No (No SI voiced) Suicidal Plan: No Suicidal Intention: No Homicidal Ideation: No (No HI voiced) Homicidal Plan: No Homicidal Intention: No Insight: Poor Judgment: Poor Assessment and Plan - Assessment (1) Schizophrenia, paranoid type Code(s): F20.0 - Paranoid schizophrenia Status: Acute - Plan Plan: Patient will be reevaluated tomorrow by the attending psychiatrist. Continue with current treatment plan. Justification for Continued Inpatient Stay: Moving this patient to a less restrictive environment would likely result in decompensation. Request Healthcare Surrogate/Guardian Advocate?: Yes
[2018-01-25] MEDS: Melatonin 5 MG Tablet PO PRN (22:51)
[2018-01-26] MEDS: Levothyroxine 50 MCG Tablet PO SCH (05:45)
[2018-01-26] MEDS: LORazepam 0.5 MG Tablet PO SCH ×2 (09:31→21:14)
[2018-01-26] MEDS: Propranolol 10 MG Tablet PO SCH (09:31)
--- NOTE | 2018-01-26 12:08 | P.PNPSY ---
Subjective Chief Complaint: Psychosis Remarks: Patient seen and examined. Chart reviewed. Case discussed with nursing staff. Case discussed with counselor. On my examination today, I find the patient sitting in the day area. He is somewhat watchful and guarded. He answers only in brief sentences in response to my questions. When I ask generally if he is experiencing any psychiatric symptoms he says "I wouldn't know." He denies side effects from medications. No physical complaints. Vital Signs Temp Pulse Resp BP Pulse Ox 01/26/18 06:32 67 16 99/60 L 98 01/25/18 18:26 97.3 F L 98 H 16 106/69 98 Intake and Output 01/25/18 01/26/18 01/26/18 22:59 06:59 14:59 Intake Total 1200 / 1200 360 / 360 Balance 1200 / 1200 360 / 360 Intake: Oral 1200 / 1200 360 / 360 Other: # Voids 3 Labs reviewed. No new labs. Review of Systems All other systems reviewed negative except as stated in HPI (Limitation: Poor historian) Mental Status Examination Appearance: Disheveled Consciousness: Alert Orientation: Person, Place (At least) Motor Activity: Other (No abnormal motor movements noted) Speech: Hesitant Language: Adequate Fund of Knowledge: Inadequate Attention and Concentration: Inadequate Memory: Impaired Mood: Oppositional Affect: Flat Thought Process & Associations: Intact Thought Content: Thought blocking Hallucination Type: Other (Somewhat internally preoccupied) Delusion Type: Other (Guarded) Suicidal Ideation: No Homicidal Ideation: No Insight: Poor Judgment: Poor Assessment and Plan - Assessment (1) Schizophrenia, paranoid type Code(s): F20.0 - Paranoid schizophrenia Status: Acute - Plan Plan: Given the chronicity and severity of patient's psychotic illness, I think a trial of clozapine is reasonable. I have discussed a trial of this medication with the patient's guardian advocate today, and she has provided consent for clozapine trial. I will check CBC for ANC and will discontinue patient's Inderal given his lower BPs in anticipation of hypotension that can be associated with clozapine. I will continue Haldol as ordered for now. My plan will be to augment Haldol with clozapine and cross taper as clozapine dose is increased. Continue to monitor on inpatient unit. Continue other medications and care as ordered. Justification for Continued Inpatient Stay: Medication changes planned. High risk for decompensation in less restrictive environment. Impairment in reality construction. Discharge Planning: Pending psychiatric stabilization Request Healthcare Surrogate/Guardian Advocate?: Yes
--- NOTE | 2018-01-26 15:45 | P.TTN ---
- Patient Problems Problems: 1. Discharge planning 2. Medication compliance 3. Knowledge deficit 4. Lack of coping skills - Progress Toward Goals Provider Present: Dr. Silas Zhang, Dr. Rocío Peng Provider Input: 01/26/18: Remain for further stabilization Nurse(s) Present: Ladonna FRANKS Nurse Input: 01/26/18: Med compliant, anxious but cooperative. Psychiatric Counselors Present: Gilberto Gonzalez Jr., [facility], Other (Siria Vogt) Psychiatric Therapist Input: 01/26/18: Cooperative, no insight, internally stimulated, needs more time, has place to go. Group Spec/RT/OT/MELCHOR Present: Delfina Luu, GPS, Elliott Donald, OT Group Spec/RT/OT/MELCHOR Input: 01/26/18: new admission as of 01/25/18. Will encourage the patient to attend and participate in the group activities. - Documentation Teaching Recipient: Patient
[2018-01-26 17:02] LABS: Baso % (Auto) 0.4 % (0.0-2.0); Eos # (Auto) 0.1 th/mm3 (0.0-0.4); Eos % (Auto) 0.6 % (0.0-4.0); Hematocrit 44.3 % (39.0-51.0); Hemoglobin 14.9 gm/dL (13.0-17.0); Lymph # (Auto) 0.9 th/mm3 (1.0-4.8); Lymph % (Auto) 10.5 % (9.0-44.0); Mean Corpuscular HGB Conc 33.7 % (32.0-36.0); Mean Corpuscular Hemoglobin 31.3 pg (27.0-34.0); Mean Corpuscular Volume 92.7 fL (80.0-100.0); Mono # (Auto) 0.4 th/mm3 (0.0-0.9); Mono % (Auto) 5.2 % (0.0-8.0); Neut # (Auto) 7.1 th/mm3 (1.8-7.7); Neut % (Auto) 83.3 % (16.0-70.0); Platelet Count 192 th/mm3 (150-450); Red Blood Count 4.78 mil/mm3 (4.50-5.90); Red Cell Distribution Width 14.3 % (11.6-17.2); White Blood Count 8.5 th/mm3 (4.0-11.0)
[2018-01-27] MEDS: Levothyroxine 50 MCG Tablet PO SCH (06:09)
[2018-01-27] MEDS: LORazepam 0.5 MG Tablet PO SCH ×2 (09:35→20:36)
--- NOTE | 2018-01-27 12:25 | P.PNPSY ---
Subjective Chief Complaint: Psychosis Remarks: Patient seen and examined. Chart reviewed. Case discussed with nursing staff. No behavioral issues noted. No issues with gait or swallowing indicated. Case discussed with counselor. On my examination today, the patient seems more alert than in previous days. He is ambulating around the unit with a steady gait. He is fairly paranoid and appears somewhat internally preoccupied. He is unable to tolerate an extended interview and after a brief 'walk and talk' interaction, quickens his pace and goes to sit alone in the day area. No evident side effects from medications. No physical complaints. Vital Signs Temp Pulse Resp BP Pulse Ox 01/27/18 06:00 97.8 F 72 16 109/63 98 Intake and Output 01/26/18 01/27/18 01/27/18 22:59 06:59 14:59 Intake Total 340 / 340 120 / 120 Balance 340 / 340 120 / 120 Intake: Oral 240 / 240 120 / 120 Oral Supplement 100 / 100 Other: # Voids 1 # Bowel Movements 0 Laboratory Results - last 24 hr 01/26/18 16:43 WBC 8.5 RBC 4.78 Hgb 14.9 Hct 44.3 MCV 92.7 MCH 31.3 MCHC 33.7 RDW 14.3 Plt Count 192 D MPV 8.0 Neut % (Auto) 83.3 H Lymph % (Auto) 10.5 [place] % (Auto) 5.2 Eos % (Auto) 0.6 Baso % (Auto) 0.4 Neut # (Auto) 7.1 Lymph # (Auto) 0.9 L [place] # (Auto) 0.4 Eos # (Auto) 0.1 Baso # (Auto) 0.0 WBC Differential . Differential Comment Auto diff final Labs reviewed. ANC is adequate for clozapine therapy. Review of Systems unobtainable due to mental condition Mental Status Examination Appearance: Disheveled Consciousness: Alert Orientation: Person, Place (At least) Motor Activity: Normal gait, Other (No abnormal motor movements appreciated) Speech: Hesitant Language: Adequate Fund of Knowledge: Inadequate Attention and Concentration: Inadequate Memory: Impaired Mood: Anxious Affect: Flat Thought Process & Associations: Intact Thought Content: Thought blocking Hallucination Type: Other (Remain somewhat internally stimulated) Delusion Type: Paranoid Suicidal Ideation: No Homicidal Ideation: No Insight: Poor Judgment: Poor Assessment and Plan - Assessment (1) Schizophrenia, paranoid type Code(s): F20.0 - Paranoid schizophrenia Status: Acute - Plan Plan: Add clozapine 25 mg at bedtime to augment patient's Haldol. I have enrolled the patient in clozapine REMS. Weekly CBCs for clozapine therapy. Continue Haldol as ordered although we will plan to consider cross-taper as previously indicated. Continue to monitor on the inpatient unit. Continue other medications and care as ordered. Justification for Continued Inpatient Stay: Medication changes. Impairment in reality construction. Risk for decompensation in less restrictive environment. Discharge Planning: Pending psychiatric stabilization. Plan will be for return to facility versus placement in a new facility. Case discussed with counselor. Request Healthcare Surrogate/Guardian Advocate?: Yes
[2018-01-28] MEDS: Levothyroxine 50 MCG Tablet PO SCH (06:20)
[2018-01-28] MEDS: LORazepam 0.5 MG Tablet PO SCH ×3 (09:03→21:11)
--- NOTE | 2018-01-28 11:49 | P.PNPSY ---
Subjective Chief Complaint: Psychosis Remarks: Patient seen and examined with nurse. Chart reviewed. Case discussed with nursing staff who reports that the patient has been medication compliant and was noted to be laughing to himself at length this morning. Case discussed in treatment team. I find the patient standing at the counter in the day area. He has his breakfast tray in front of him and appears to have eaten most of it. He traces a finger along the outline of the Styrofoam box his breakfast came in and says "buzz, buzz, buzz." when I ask him what this means, he replies "buzz, buzz, like an animal" and then giggles to himself. He appears internally stimulated. No evident side effects from medications, although BP was a little on the low side this morning as expected with starting clozapine, asymptomatic. No physical complaints. Vital Signs Temp Pulse Resp BP Pulse Ox 01/27/18 18:54 98 F 77 18 108/56 L 98 Intake and Output 01/27/18 01/28/18 01/28/18 22:59 06:59 14:59 Intake Total 360 / 360 460 / 460 Balance 360 / 360 460 / 460 Intake: Oral 360 / 360 360 / 360 Oral Supplement 100 / 100 Other: # Voids 2 1 # Bowel Movements 0 Labs reviewed. No new labs. Review of Systems All other systems reviewed negative except as stated in HPI Mental Status Examination Appearance: Disheveled Consciousness: Alert Orientation: Person, Place (At least) Motor Activity: Normal gait, Other (No motor abnormalities noted.) Speech: Hesitant Language: Adequate Fund of Knowledge: Inadequate Attention and Concentration: Inadequate Memory: Impaired Mood: Good Affect: Other (silly) Thought Process & Associations: Tangential Thought Content: Delusional Hallucination Type: Other (Int stim) Delusion Type: Paranoid Suicidal Ideation: No Homicidal Ideation: No Insight: Poor Judgment: Poor Assessment and Plan - Assessment (1) Schizophrenia, paranoid type Code(s): F20.0 - Paranoid schizophrenia Status: Acute - Plan Plan: Patient does seem more interactive today, if somewhat silly and bizarre. I will continue clozapine as ordered to allow patient to acclimate to current dose , but please consider titrating this over the weekend to 50mg qHS, and then I can consider adding a daytime dose after the weekend. Weekly CBC for clozapine therapy ordered. Continue to monitor on the inpatient unit. Continue other medications and care as ordered. Justification for Continued Inpatient Stay: Medication changes planned. High risk for decompensation in less restrictive environment. Impairment in reality construction. Discharge Planning: Pending psychiatric stabilization. Request Healthcare Surrogate/Guardian Advocate?: Yes
--- NOTE | 2018-01-28 12:36 | P.TTN ---
- Patient Problems Problems: 1. Discharge planning 2. Medication compliance 3. Knowledge deficit 4. Lack of coping skills - Progress Toward Goals Provider Present: Dr. Silas Zhang, Dr. Neha Tobin, Dr. Rocío Peng Provider Input: : Pt undergoing coodinated titration of clozapin with corresponding reduction of haldol, BP continues to be monitored. Pt expected to discharge to previous location ([facility]) when stable. Pt is currently not stable to return. 01/26/18: Remain for further stabilization Nurse(s) Present: Ladonna FRANKS Nurse Input: 01/26/18: Med compliant, anxious but cooperative. Psychiatric Counselors Present: Gilberto Gonzalez Jr., [facility], Other (Siria Vogt) Psychiatric Therapist Input: 01/28/18: Pt is cooperative with medication adjustment, continues not to meet criteria to return to [facility]. 01/26/18: Cooperative, no insight, internally stimulated, needs more time, has place to go. Group Spec/RT/OT/MELCHOR Present: PENNY Chang, RUIZ Lee, Elliott Donald, OT Group Spec/RT/OT/MELCHOR Input: 01/28/18: pt does not participate or attend groups. 01/26/18: new admission as of 01/25/18. Will encourage the patient to attend and participate in the group activities. - Discharge Plan Pt continues to not meet criteria to return to [facility], meds being titrated to stabilize pt. - Documentation Scribe: Elliott Donald, MS, OTR Teaching Recipient: Patient
[2018-01-29] MEDS: Levothyroxine 50 MCG Tablet PO SCH (07:50)
[2018-01-29] MEDS: LORazepam 0.5 MG Tablet PO SCH ×2 (08:53→20:47)
--- NOTE | 2018-01-29 12:32 | P.PNPSY ---
Subjective Chief Complaint: Psychosis Remarks: Reviewed electronic medical records and discussed case with staff. Follow-up was conducted in the patient's room with TINY Camarillo present. His nurse reports he has been paranoid and quiet. He is required some persuasion to take his medications. Apparently, last night he refused his medications. Today, he seems more alert and engaged than other times when I have seen him. He states that he got "0 sleep" last night reports that his appetite is good. He states that he is happy however his affect remains flat. He denies any side effects from the medication. Mental Status Examination Appearance: Disheveled Consciousness: Alert Orientation: Person, Place (At least) Motor Activity: Normal gait, Other (No motor abnormalities noted.) Speech: Hesitant Language: Adequate Fund of Knowledge: Inadequate Attention and Concentration: Inadequate Memory: Impaired Mood: Good Affect: Other (silly) Thought Process & Associations: Tangential Thought Content: Delusional Hallucination Type: Other (Int stim) Delusion Type: Paranoid Suicidal Ideation: No Suicidal Plan: No Suicidal Intention: No Homicidal Ideation: No Homicidal Plan: No Homicidal Intention: No Insight: Poor Judgment: Poor Assessment and Plan - Assessment (1) Schizophrenia, paranoid type Code(s): F20.0 - Paranoid schizophrenia Status: Acute - Plan Plan: Patient will be reevaluated Wednesday by the attending psychiatrist. Continue with current treatment plan. Patient seems to be showing some slight improvement. Justification for Continued Inpatient Stay: Moving this patient to a less restrictive environment would likely result in decompensation. Request Healthcare Surrogate/Guardian Advocate?: Yes
[2018-01-30] MEDS: Levothyroxine 50 MCG Tablet PO SCH (06:00)
[2018-01-30] MEDS: LORazepam 0.5 MG Tablet PO SCH ×2 (09:38→22:20)
--- NOTE | 2018-01-30 10:50 | P.PNPSY ---
Subjective Chief Complaint: Psychosis Remarks: Reviewed electronic medical records and discussed case with staff. Follow-up was conducted in patient's room. He was found sleeping soundly and bed. He woke to verbal stimuli. His nurse reports he has been compliant with his medications. He reports that he slept well. When asked if he had had his breakfast yet he responded "is that even a thing" and giggled. We explained that it was indeed a thing and escorted him down to breakfast. He does seem to be somewhat more responsive today. Mental Status Examination Appearance: Disheveled Consciousness: Alert Orientation: Person, Place (At least) Motor Activity: Normal gait, Other (No motor abnormalities noted.) Speech: Hesitant Language: Adequate Fund of Knowledge: Inadequate Attention and Concentration: Inadequate Memory: Impaired Mood: Good Affect: Other (silly) Thought Process & Associations: Tangential Thought Content: Delusional Hallucination Type: Other (Int stim) Delusion Type: Paranoid Suicidal Ideation: No Suicidal Plan: No Suicidal Intention: No Homicidal Ideation: No Homicidal Plan: No Homicidal Intention: No Insight: Poor Judgment: Poor Assessment and Plan - Assessment (1) Schizophrenia, paranoid type Code(s): F20.0 - Paranoid schizophrenia Status: Acute - Plan Plan: Patient will be reevaluated Wednesday by the attending psychiatrist. Continue with current treatment plan. Justification for Continued Inpatient Stay: Moving this patient to a less restrictive environment would likely result in decompensation. Request Healthcare Surrogate/Guardian Advocate?: Yes
[2018-01-31] MEDS: Levothyroxine 50 MCG Tablet PO SCH (06:36)
[2018-01-31] MEDS: LORazepam 0.5 MG Tablet PO SCH ×2 (08:56→20:31)
--- NOTE | 2018-01-31 12:32 | P.PNPSY ---
Subjective Chief Complaint: Psychosis Remarks: Patient seen and examined with nurse. Chart reviewed. I do note some intermittent medication refusal through the weekend, it appears at HS. Case discussed with nursing staff. I find the patient sitting in the day area. When I ask if he had any difficulties over the weekend, he replies somewhat archly "being here." He would like to return to his NURSING HOME. His speech is more voluminous today, but his thought process is fairly disorganized, and it is difficult to understand the sense of what he is trying to say. No SI or HI voiced. No side effects from medications. No physical complaints. Vital Signs Temp Pulse Resp BP Pulse Ox 01/31/18 08:00 20 01/30/18 20:00 20 01/30/18 18:07 98.0 F 68 16 110/58 L 96 Intake and Output 01/30/18 01/31/18 01/31/18 22:59 06:59 14:59 Intake Total 1560 / 1560 0 / 0 Balance 1560 / 1560 0 / 0 Intake: Oral 1560 / 1560 0 / 0 Oral Supplement 0 / 0 Other: # Voids 3 1 Labs reviewed. No new labs. Review of Systems unobtainable due to mental condition Mental Status Examination Appearance: Disheveled Consciousness: Alert Orientation: Person, Place (At least) Motor Activity: Normal gait, Other (No abnormal motor movements noted) Speech: Unremarkable Language: Adequate Fund of Knowledge: Inadequate Attention and Concentration: Inadequate Memory: Impaired Mood: Oppositional (mild) Affect: Blunt Thought Process & Associations: Disorganized Thought Content: Delusional Hallucination Type: Other (Remain somewhat internally stimulated) Delusion Type: Paranoid Suicidal Ideation: No Homicidal Ideation: No Insight: Poor Judgment: Poor Assessment and Plan - Assessment (1) Schizophrenia, paranoid type Code(s): F20.0 - Paranoid schizophrenia Status: Acute - Plan Plan: Titrate clozapine by adding daytime dose of 25mg. Continue clozapine 50mg qHS along with scheduled Haldol. To consider beginning to taper Haldol if patient begins to experience side effects from this medication combination or as clozapine dose rises into the therapeutic range for this medication. Continue weekly CBCs. Continue to monitor on inpatient unit. Continue other medications and care as ordered. Justification for Continued Inpatient Stay: Medication changes. Impairment in reality construction. Risk for decompensation in less restrictive environment. Discharge Planning: Pending psychiatric stabilization Request Healthcare Surrogate/Guardian Advocate?: Yes
[2018-02-01] MEDS: Levothyroxine 50 MCG Tablet PO SCH (06:29)
[2018-02-01] MEDS: LORazepam 0.5 MG Tablet PO SCH ×2 (09:23→20:25)
--- NOTE | 2018-02-01 10:43 | P.PNPSY ---
Subjective Chief Complaint: Psychosis Remarks: Reviewed electronic medical records and discussed case with staff. Follow-up was conducted in the patient's room. He was found lying in the bed sleeping in no apparent distress. Patient states that he sleeping well and eating well. When asked about his mood he states that he feels "good". He attempted to speak with me stating, "I want to go to [place] something" and trailed off. Seemed to become disorganized at the end. Staff reports he has been compliant with medications and had no behavioral disturbances. Mental Status Examination Appearance: Disheveled Consciousness: Alert Orientation: Person, Place (At least) Motor Activity: Normal gait, Other (No abnormal motor movements noted) Speech: Unremarkable Language: Adequate Fund of Knowledge: Inadequate Attention and Concentration: Inadequate Memory: Impaired Mood: Oppositional (mild) Affect: Blunt Thought Process & Associations: Disorganized Thought Content: Delusional Hallucination Type: Other (Remain somewhat internally stimulated) Delusion Type: Paranoid Suicidal Ideation: No Suicidal Plan: No Suicidal Intention: No Homicidal Ideation: No Homicidal Plan: No Homicidal Intention: No Insight: Poor Judgment: Poor Assessment and Plan - Assessment (1) Schizophrenia, paranoid type Code(s): F20.0 - Paranoid schizophrenia Status: Acute - Plan Plan: Patient will be reevaluated tomorrow by the attending psychiatrist. Continue with current treatment plan. Justification for Continued Inpatient Stay: Moving this patient to a less restrictive environment would likely result in decompensation. Request Healthcare Surrogate/Guardian Advocate?: Yes
--- NOTE | 2018-02-01 11:13 | P.PNPSY ---
Subjective Chief Complaint: Psychosis Remarks: Reviewed electronic medical records and discussed case with staff. Follow-up was conducted in Mental Status Examination Appearance: Disheveled Consciousness: Alert Orientation: Person, Place (At least) Motor Activity: Normal gait, Other (No abnormal motor movements noted) Speech: Unremarkable Language: Adequate Fund of Knowledge: Inadequate Attention and Concentration: Inadequate Memory: Impaired Mood: Oppositional (mild) Affect: Blunt Thought Process & Associations: Disorganized Thought Content: Delusional Hallucination Type: Other (Remain somewhat internally stimulated) Delusion Type: Paranoid Suicidal Ideation: No Suicidal Plan: No Suicidal Intention: No Homicidal Ideation: No Homicidal Plan: No Homicidal Intention: No Insight: Poor Judgment: Poor Assessment and Plan - Assessment (1) Schizophrenia, paranoid type Code(s): F20.0 - Paranoid schizophrenia Status: Acute - Plan Request Healthcare Surrogate/Guardian Advocate?: Yes
[2018-02-02] MEDS: Levothyroxine 50 MCG Tablet PO SCH (05:08)
[2018-02-02 08:27] LABS: Baso % (Auto) 0.6 % (0.0-2.0); Eos # (Auto) 0.1 th/mm3 (0.0-0.4); Eos % (Auto) 2.1 % (0.0-4.0); Hematocrit 39.9 % (39.0-51.0); Hemoglobin 13.6 gm/dL (13.0-17.0); Lymph # (Auto) 1.2 th/mm3 (1.0-4.8); Lymph % (Auto) 30.5 % (9.0-44.0); Mean Corpuscular HGB Conc 34.1 % (32.0-36.0); Mean Corpuscular Volume 93.6 fL (80.0-100.0); Mean Platelet Volume 7.9 fL (7.0-11.0); Mono # (Auto) 0.3 th/mm3 (0.0-0.9); Mono % (Auto) 7.5 % (0.0-8.0); Neut # (Auto) 2.4 th/mm3 (1.8-7.7); Neut % (Auto) 59.3 % (16.0-70.0); Platelet Count 162 th/mm3 (150-450); Red Blood Count 4.26 mil/mm3 (4.50-5.90); Red Cell Distribution Width 13.7 % (11.6-17.2); White Blood Count 4.1 th/mm3 (4.0-11.0)
[2018-02-02] MEDS: LORazepam 0.5 MG Tablet PO SCH (08:40)
--- NOTE | 2018-02-02 11:58 | P.PNPSY ---
Subjective Chief Complaint: Psychosis Remarks: Patient seen in his room with floor staff, chart reviewed, patient compliant medication. When asked how he was doing patient lift his knee up and slapped his left knee with his right hand. He then got out of bed when I invited him to go get his lunch. When asked about voices he can mumble and answer after some thought blocking and distracted looking over his right shoulder Review of Systems All other systems reviewed negative except as stated in HPI Mental Status Examination Appearance: Disheveled Consciousness: Alert Orientation: Person, Place (At least) Motor Activity: Normal gait, Other (No abnormal motor movements noted) Speech: Unremarkable Language: Adequate Fund of Knowledge: Inadequate Attention and Concentration: Inadequate Memory: Impaired Mood: Oppositional (mild) Affect: Blunt Thought Process & Associations: Disorganized Thought Content: Delusional Hallucination Type: Other (Remain somewhat internally stimulated) Delusion Type: Paranoid Suicidal Ideation: No Suicidal Plan: No Suicidal Intention: No Homicidal Ideation: No Homicidal Plan: No Homicidal Intention: No Insight: Poor Judgment: Poor Assessment and Plan - Assessment (1) Schizophrenia, paranoid type Code(s): F20.0 - Paranoid schizophrenia Status: Acute - Plan Plan: Patient remained psychotic and somewhat paranoid though at least at this moment no significant behavioral problems Justification for Continued Inpatient Stay: At this time patient would decompensate a place to a lower level of care Discharge Planning: To be determined Request Healthcare Surrogate/Guardian Advocate?: Yes
[2018-02-03] MEDS: LORazepam 0.5 MG Tablet PO SCH ×3 (01:12→20:21)
[2018-02-03] MEDS: Levothyroxine 50 MCG Tablet PO SCH (06:41)
--- NOTE | 2018-02-03 10:15 | P.PNPSY ---
Subjective Chief Complaint: Psychosis Remarks: Patient seen and examined. Chart reviewed. Case discussed with nursing staff. On my examination today, patient remains fairly oppositional and negativistic. He has periods of selective mutism. When I ask if he is experiencing side effects from medications he replies "nope." However he is noncommittal when I ask about hallucinations or SI/HI. He is compliant with medications per nursing staff. No EPS on exam. No physical complaints. Vital Signs Temp Pulse Resp BP Pulse Ox 02/03/18 05:19 97.6 F 65 16 113/60 96 02/02/18 17:50 98.1 F 102 H 17 107/70 90 L Intake and Output 02/03/18 02/03/18 02/03/18 06:59 14:59 22:59 Intake Total 240 / 240 480 / 480 Balance 240 / 240 480 / 480 Intake: Oral 240 / 240 480 / 480 Labs reviewed. CBC from yesterday reviewed. ANC remains adequate for clozapine therapy. Review of Systems unobtainable due to mental condition Mental Status Examination Appearance: Disheveled Consciousness: Alert Orientation: Person, Place (At least) Motor Activity: Other (No motor abnormalities noted) Speech: Other (Selectively mute at times) Language: Other (Limited sample) Fund of Knowledge: Inadequate Attention and Concentration: Inadequate Memory: Impaired Mood: Oppositional (mild) Affect: Blunt Thought Process & Associations: Disorganized Thought Content: Delusional Hallucination Type: Other (Somewhat internally stimulated) Delusion Type: Paranoid Insight: Poor Judgment: Poor Mental Status Exam Remarks: Does not reply when asked about SI or HI. He does not verbalize any SI or HI. Assessment and Plan - Assessment (1) Schizophrenia, paranoid type Code(s): F20.0 - Paranoid schizophrenia Status: Acute - Plan Plan: Titrate clozapine to 25 mg in the morning and 75 mg at bedtime to target psychiatric symptoms. Continue to monitor on the inpatient unit. Continue other medications and care as ordered. Justification for Continued Inpatient Stay: Medication changes. High risk for decompensation in less restrictive environment. Impairment in reality construction. Discharge Planning: Pending psychiatric stabilization. Request Healthcare Surrogate/Guardian Advocate?: Yes
[2018-02-04] MEDS: Levothyroxine 50 MCG Tablet PO SCH ×2 (05:32→05:39)
[2018-02-04] MEDS: LORazepam 0.5 MG Tablet PO SCH ×2 (08:14→20:24)
--- NOTE | 2018-02-04 12:59 | P.PNPSY ---
Subjective Chief Complaint: Psychosis Remarks: Patient seen and examined. Chart reviewed. Case discussed with nursing staff. Case discussed in treatment team. On my examination today, patient presents as somewhat oppositional and negativistic. He is standing in the day area staring expectantly out the window. He does not break his gaze to engage with me in conversation. He remains internally preoccupied and somewhat paranoid. No side effects from medications. No physical complaints. Vital Signs Temp Pulse Resp BP Pulse Ox 02/04/18 05:52 97.9 F 83 17 108/59 L 94 L 02/03/18 18:23 98.1 F 90 17 136/60 98 Intake and Output 02/03/18 02/04/18 02/04/18 22:59 06:59 14:59 Intake Total 1080 / 1080 460 / 460 360 / 360 Balance 1080 / 1080 460 / 460 360 / 360 Intake: Oral 1080 / 1080 360 / 360 360 / 360 Oral Supplement 100 / 100 Other: # Voids 2 # Bowel Movements 0 Labs reviewed. No new labs. Review of Systems All other systems reviewed negative except as stated in HPI (Limitation: Psychosis) Mental Status Examination Appearance: Disheveled Consciousness: Alert Orientation: Person, Place (At least) Motor Activity: Other (No abnormal motor movements noted) Speech: Unremarkable Language: Adequate Fund of Knowledge: Inadequate Attention and Concentration: Inadequate Memory: Impaired Mood: Oppositional (mild) Affect: Blunt Thought Process & Associations: Circumstantial Thought Content: Delusional Hallucination Type: Other (Remains internally preoccupied) Delusion Type: Paranoid Suicidal Ideation: No Homicidal Ideation: No Insight: Poor Judgment: Poor Assessment and Plan - Assessment (1) Schizophrenia, paranoid type Code(s): F20.0 - Paranoid schizophrenia Status: Acute - Plan Plan: Titrate clozapine to 50 mg in the morning and 75 mg at bedtime to manage residual psychiatric symptoms. I will taper the patient's Haldol somewhat to 15 mg twice daily. Please consider further titration of clozapine over the weekend as appropriate. Continue weekly CBCs for clozapine therapy. Continue to monitor on the inpatient unit. Continue other medications and care as ordered. Justification for Continued Inpatient Stay: Medication changes. Impairment in reality construction. Risk for decompensation in less restrictive environment. Discharge Planning: Pending psychiatric stabilization. Powertrain Calibration Engineer from facility to come evaluate the patient after the weekend to give us a sense of their impression of his progress. Request Healthcare Surrogate/Guardian Advocate?: Yes
[2018-02-05] MEDS: Levothyroxine 50 MCG Tablet PO SCH (05:05)
[2018-02-05] MEDS: LORazepam 0.5 MG Tablet PO SCH ×2 (08:22→20:26)
--- NOTE | 2018-02-05 11:16 | P.PNPSY ---
Subjective Chief Complaint: Psychosis Remarks: Reviewed electronic medical records and discussed case with staff. Follow-up was conducted in the patient's room. Patient was found sleeping soundly no apparent distress. He awoke to verbal stimuli. He seems more disorganized than last I saw him the. Speech is rambling and does not always make sense. He asks "why did I have to take it?" But then is unable to elaborate what he is referring to. He does deny any side effects from medication. I have increased his bedtime dose of clozapine to [address] Tobin suggestion. I opted to increase the nighttime dose as the nurse reports that he seems more disorganized in the morning and nighttime staff's report was that he was a little more coherent speaking to them. Mental Status Examination Appearance: Disheveled Consciousness: Alert Orientation: Person, Place (At least) Motor Activity: Other (No abnormal motor movements noted) Speech: Unremarkable Language: Adequate Fund of Knowledge: Inadequate Attention and Concentration: Inadequate Memory: Impaired Mood: Oppositional (mild) Affect: Blunt Thought Process & Associations: Circumstantial Thought Content: Delusional Hallucination Type: Other (Remains internally preoccupied) Delusion Type: Paranoid Suicidal Ideation: No Suicidal Plan: No Suicidal Intention: No Homicidal Ideation: No Homicidal Plan: No Homicidal Intention: No Insight: Poor Judgment: Poor Assessment and Plan - Assessment (1) Schizophrenia, paranoid type Code(s): F20.0 - Paranoid schizophrenia Status: Acute - Plan Plan: Patient will be reevaluated Wednesday by the attending psychiatrist. Continue with current treatment plan. Justification for Continued Inpatient Stay: Moving this patient to a less restrictive environment would likely result in decompensation. His medication continues to be titrated to target his symptoms. Request Healthcare Surrogate/Guardian Advocate?: Yes
[2018-02-06] MEDS: Levothyroxine 50 MCG Tablet PO SCH (05:55)
--- NOTE | 2018-02-06 08:49 | P.PNPSY ---
Subjective Chief Complaint: Psychosis Remarks: Reviewed electronic medical records and discussed case with staff. Follow-up was conducted in the patient's room with TINY Olmstead. Clozaril dosage was adjusted yesterday per psychiatrist's recommendation. Patient is in his bed and very angry. He will not get up for breakfast. He answers basic questions. He did respond that he is not hearing voices or having any visual hallucinations. He refused to have his am vital signs taken by staff. Night nurses reported that he was incontinent and he was walking around without clothing. He needed to be redirected. Night nurses also reported that he has stopped masturbating, which was continuous when he was on the 2700 unit. Will continue to encourage fluids and encourage him to eat lunch. Review of Systems All other systems reviewed negative except as stated in HPI Mental Status Examination Appearance: Disheveled Consciousness: Alert Orientation: Person, Place (At least) Motor Activity: Other (No abnormal motor movements noted) Speech: Unremarkable Language: Adequate Fund of Knowledge: Inadequate Attention and Concentration: Inadequate Memory: Impaired Mood: Angry, Oppositional (mild), Irritable Affect: Blunt Thought Process & Associations: Circumstantial Thought Content: Delusional Hallucination Type: Other (Remains internally preoccupied) Delusion Type: Paranoid Suicidal Ideation: No Suicidal Plan: No Suicidal Intention: No Homicidal Ideation: No Homicidal Plan: No Homicidal Intention: No Insight: Poor Judgment: Poor Assessment and Plan - Assessment (1) Schizophrenia, paranoid type Code(s): F20.0 - Paranoid schizophrenia Status: Acute - Plan Plan: Patient will be reevaluated Wednesday by the attending psychiatrist. Continue with current treatment plan. Justification for Continued Inpatient Stay: Moving patient to a less restrictive environment may result in his decompensation. Request Healthcare Surrogate/Guardian Advocate?: Yes
[2018-02-06] MEDS: LORazepam 0.5 MG Tablet PO SCH ×2 (10:25→21:19)
[2018-02-07] MEDS: Levothyroxine 50 MCG Tablet PO SCH (06:22)
[2018-02-07] MEDS: LORazepam 0.5 MG Tablet PO SCH ×2 (08:46→21:17)
--- NOTE | 2018-02-07 10:37 | P.PNPSY ---
Subjective Chief Complaint: Psychosis Remarks: Patient seen and examined. Chart reviewed. Case discussed with staff. On my examination today, the patient is fairly negativistic and selectively mute for much of the interview. No posturing, stereotypies or other signs of catatonia. Affect is somewhat dysphoric. He does follow commands and gives me his arm to examine him for EPS, of which she has none besides perhaps a mild resting hand tremor. No other evident side effects from medications. No physical complaints. Vital Signs Temp Pulse Resp BP Pulse Ox 02/07/18 06:00 98.1 F 79 16 146/72 H 95 02/07/18 05:56 98.8 F 95 H 16 115/56 L 95 02/06/18 17:55 98.2 F 101 H 18 129/79 99 Intake and Output 02/06/18 02/07/18 02/07/18 22:59 06:59 14:59 Intake Total 340 / 340 Balance 340 / 340 Intake: Oral 240 / 240 Oral Supplement 100 / 100 Other: # Voids 1 Weight 59.1 kg Labs reviewed. No new labs. Review of Systems unobtainable due to mental condition Mental Status Examination Appearance: Disheveled Consciousness: Alert Motor Activity: Other (Except as above, no other motor abnormalities noted) Speech: Other (Selectively mute) Mood: Oppositional Affect: Other (Mildly dysphoric) Hallucination Type: Other (Appears somewhat internally stimulated) Insight: Poor Judgment: Poor Mental Status Exam Remarks: MSE is limited as patient is selectively mute. Assessment and Plan - Assessment (1) Schizophrenia, paranoid type Code(s): F20.0 - Paranoid schizophrenia Status: Acute - Plan Plan: I will titrate HS dose of clozapine to 150mg to target residual psychiatric symptoms and continue daytime dose as ordered for now. Continue weekly CBCs for clozapine therapy. Continue Haldol as ordered for now. Continue scheduled Cogentin as ordered; dose is already fairly robust and it is hoped that any EPS present may subside with cross-taper from Haldol to clozapine. Continue to monitor on the inpatient unit. Continue other medications and care as ordered. Justification for Continued Inpatient Stay: Medication changes. High risk for decompensation in less restrictive environment. Discharge Planning: Pending psychiatric stabilization. Request Healthcare Surrogate/Guardian Advocate?: Yes
[2018-02-08] MEDS: Levothyroxine 50 MCG Tablet PO SCH (06:56)
--- NOTE | 2018-02-08 10:02 | P.TTN ---
- Patient Problems Problems: 1. Discharge planning 2. Medication compliance 3. Knowledge deficit 4. Lack of coping skills - Progress Toward Goals Provider Present: Dr. Silas Zhang, Dr. Neha Tobin, Dr. Rocío Peng Provider Input: 02/08/2018; per doctor, med adjustment to address mood/behavior ; patient might need to be staff for State if he continues to show limited improvement. : Pt undergoing coodinated titration of clozapin with corresponding reduction of haldol, BP continues to be monitored. Pt expected to discharge to previous location ([facility]) when stable. Pt is currently not stable to return. 01/26/18: Remain for further stabilization Nurse(s) Present: RN Nurse Input: 02/08/2018; per RN patient is compliant with meds, and meals continues to display agitation requiring prompting and redication. 01/26/18: Med compliant, anxious but cooperative. Psychiatric Counselors Present: Gilberto Gonzalez Jr., [facility], Teri Vicente, [facility], Other (Siria Vogt) Psychiatric Therapist Input: 02/08/2018: Counselor will complete State package if and when order by doctor; Carlene from [facility], reports she was unable to complete an assessment on today patient was unable to be arouse to engage with her assessment. 01/28/18: Pt is cooperative with medication adjustment, continues not to meet criteria to return to [facility]. 01/26/18: Cooperative, no insight, internally stimulated, needs more time, has place to go. Group Spec/RT/OT/MELCHOR Present: Delfina Luu, PENNY, RUIZ Lee, Elliott Donald, OT Group Spec/RT/OT/MELCHOR Input: 02/08/2018; per OT patient is unable to appropriately attend groups due to his behavior. 01/28/18: pt does not participate or attend groups. 01/26/18: new admission as of 01/25/18. Will encourage the patient to attend and participate in the group activities. - Discharge Plan Pt continues to not meet criteria to return to [facility], meds being titrated to stabilize pt. - Documentation Scribe: Elliott Donald, MS, OTR Teaching Recipient: Patient
[2018-02-08] MEDS: LORazepam 0.5 MG Tablet PO SCH ×2 (10:03→22:34)
--- NOTE | 2018-02-08 10:53 | P.PNPSY ---
Subjective Chief Complaint: Psychosis Remarks: Patient seen and examined with nurse. Chart reviewed. Case discussed with nursing staff who reports that the patient refused medications this morning. Case discussed in treatment team. Counselor reports that digital media representative from facility tried to evaluate patient this morning, although he was reportedly minimally cooperative. On my exam, patient is once again mute. Some possible posturing but no stereotypies or stupor or other signs of catatonia. He is oppositional and negativistic. No evident side effects from medications. No physical complaints. Vital Signs Temp Pulse Resp BP Pulse Ox 02/08/18 06:00 98.5 F 94 H 17 112/59 L 96 02/07/18 18:31 98.1 F 95 H 16 119/67 98 Intake and Output 02/07/18 02/08/18 02/08/18 22:59 06:59 14:59 Intake Total 820 / 820 Balance 820 / 820 Intake: Oral 720 / 720 Oral Supplement 100 / 100 Other: # Voids 3 2 Labs reviewed. No new labs. Review of Systems All other systems reviewed negative except as stated in HPI Mental Status Examination Appearance: Disheveled Consciousness: Alert Orientation: Person Motor Activity: Other (Except as above, no motor abnormalities noted) Speech: Other (Selectively mute) Mood: Oppositional Affect: Flat Insight: Poor Judgment: Poor Mental Status Exam Remarks: MSE limited as patient is mute Assessment and Plan - Assessment (1) Schizophrenia, paranoid type Code(s): F20.0 - Paranoid schizophrenia Status: Acute - Plan Plan: Patient once again mute and now refusing medications this morning. Out of concern for possible catatonia, I will titrate patient's scheduled Ativan to 1mg BID. To consider parenteral Ativan. Continue clozapine and Haldol as ordered. I will check an updated set of basic labs as well as UA. Continue to monitor on the inpatient unit. Continue other medications and care as ordered. Justification for Continued Inpatient Stay: Medication changes. Risk for decompensation in less restrictive environment. Discharge Planning: Possible return to facility with outpatient follow-up following psychiatric stabilization. However, given the chronicity of patient's illness and the length of current episode, I will go ahead and initiate a state hospital referral as a backup plan. Request Healthcare Surrogate/Guardian Advocate?: Yes
[2018-02-08 16:13] LABS: Baso % (Auto) 0.3 % (0.0-2.0); Eos # (Auto) 0.1 th/mm3 (0.0-0.4); Eos % (Auto) 1.9 % (0.0-4.0); Hematocrit 43.2 % (39.0-51.0); Hemoglobin 14.6 gm/dL (13.0-17.0); Lymph # (Auto) 1.2 th/mm3 (1.0-4.8); Lymph % (Auto) 20.3 % (9.0-44.0); Mean Corpuscular HGB Conc 33.9 % (32.0-36.0); Mean Corpuscular Hemoglobin 31.7 pg (27.0-34.0); Mean Corpuscular Volume 93.7 fL (80.0-100.0); Mean Platelet Volume 8.2 fL (7.0-11.0); Mono # (Auto) 0.3 th/mm3 (0.0-0.9); Mono % (Auto) 5.8 % (0.0-8.0); Neut # (Auto) 4.1 th/mm3 (1.8-7.7); Neut % (Auto) 71.7 % (16.0-70.0); Platelet Count 166 th/mm3 (150-450); Red Blood Count 4.61 mil/mm3 (4.50-5.90); White Blood Count 5.7 th/mm3 (4.0-11.0)
[2018-02-08 17:01] LABS: Albumin 3.9 g/dL (3.4-5.0); Anion Gap 8 meq/L (5-15); Aspartate Aminotransferase 20 U/L (15-37); Blood Urea Nitrogen 15 mg/dL (7-18); Calcium 9.3 mg/dL (8.5-10.1); Carbon Dioxide 31.4 meq/L (21.0-32.0); Chloride 102 meq/L (98-107); Glomerular Filtration Rate Greater Than 89 mL/min (>89); Glucose,Random 95 mg/dL (74-106); Potassium 4.1 meq/L (3.5-5.1); Sodium 141 meq/L (136-145)
[2018-02-08 17:05] LABS: Alanine Aminotransferase 40 U/L (12-78); Alkaline Phosphatase 107 U/L (45-117); Total Protein 7.6 g/dL (6.4-8.2)
[2018-02-09] MEDS: Levothyroxine 50 MCG Tablet PO SCH (06:22)
[2018-02-09] MEDS: LORazepam 0.5 MG Tablet PO SCH ×2 (09:13→21:21)
--- NOTE | 2018-02-09 12:06 | P.PNPSY ---
Subjective Chief Complaint: Psychosis Remarks: Patient seen and examined. Chart reviewed. I note that the patient ate 0% of breakfast and dinner yesterday and 75% of lunch. Case discussed with nursing staff who reports patient is seclusive and bizarre. He is more interactive and conversant later in the day per nursing report. On my examination today, the patient is laying in bed. He opens his eyes when I come in but then closes them , feigning sleep. He does not exhibit any posturing or waxy flexibility today but remains mute, limiting the interview. No evident side effects from medications. No physical complaints. Vital Signs Temp Pulse Resp BP Pulse Ox 02/09/18 05:45 98.6 F 81 16 121/54 L 95 02/08/18 17:41 98.1 F 82 16 110/67 94 L Intake and Output 02/08/18 02/09/18 02/09/18 22:59 06:59 14:59 Intake Total 580 / 580 240 / 240 Balance 580 / 580 240 / 240 Intake: Oral 480 / 480 240 / 240 Oral Supplement 100 / 100 Other: # Voids 2 2 Laboratory Results - last 24 hr 02/08/18 02/08/18 15:22 15:22 WBC 5.7 RBC 4.61 Hgb 14.6 Hct 43.2 MCV 93.7 MCH 31.7 MCHC 33.9 RDW 13.0 Plt Count 166 MPV 8.2 Neut % (Auto) 71.7 H Lymph % (Auto) 20.3 [place] % (Auto) 5.8 Eos % (Auto) 1.9 Baso % (Auto) 0.3 Neut # (Auto) 4.1 Lymph # (Auto) 1.2 [place] # (Auto) 0.3 Eos # (Auto) 0.1 Baso # (Auto) 0.0 WBC Differential . Differential Comment Auto diff final Sodium 141 Potassium 4.1 Chloride 102 Carbon Dioxide 31.4 Anion Gap 8 BUN 15 Creatinine 0.84 Estimated GFR Greater than 89 Random Glucose 95 Calcium 9.3 Total Bilirubin 0.3 AST 20 ALT 40 Alkaline Phosphatase 107 Total Protein 7.6 Albumin 3.9 Labs reviewed. CBC and CMP unremarkable. ANC remains adequate for clozapine therapy. Urinalysis ordered, pending. Review of Systems All other systems reviewed negative except as stated in HPI Mental Status Examination Appearance: Disheveled Consciousness: Alert Orientation: Person Motor Activity: Other (No motor abnormalities noted) Speech: Other (Remains selectively mute) Affect: Flat Insight: Poor Judgment: Poor Mental Status Exam Remarks: MSE limited because patient is mute. Assessment and Plan - Assessment (1) Schizophrenia, paranoid type Code(s): F20.0 - Paranoid schizophrenia Status: Acute - Plan Plan: Titrate clozapine to 175 mg at bedtime and continue with daytime dose as ordered to target ongoing psychiatric symptoms. Continue other psychotropics as ordered. Request dietitian consultation given spotty oral intake. Continue to monitor on the inpatient unit. Continue other medications and care as ordered. Justification for Continued Inpatient Stay: Medication changes. High risk for decompensation in less restrictive environment. Discharge Planning: Pending psychiatric stabilization. State hospital referral ordered. Request Healthcare Surrogate/Guardian Advocate?: Yes
[2018-02-10] MEDS: Levothyroxine 50 MCG Tablet PO SCH (06:23)
[2018-02-10] MEDS: LORazepam 0.5 MG Tablet PO SCH ×2 (08:53→21:38)
--- NOTE | 2018-02-10 09:29 | P.PNPSY ---
Subjective Chief Complaint: Psychosis Remarks: Patient seen and examined. Chart reviewed. Patient ate 25/15/0% of meals yesterday. Awaiting dietitian consultation. Case discussed with nursing staff who reports that the patient arose early, showered and has been sitting in the dayroom, where I find him now. He is somewhat more interactive today and does not feign sleep. He verbalizes little, still, saying only "knock it off" when I try to engage with him. He is noted to be eyeing other patients in the day room in a suspicious fashion. Affect is blunted and irritable. No evident side effects from medications. No physical complaints. Vital Signs Temp Pulse Resp BP Pulse Ox 02/10/18 07:13 97.8 F 86 16 126/82 97 02/09/18 18:20 98.5 F 79 16 119/79 95 02/09/18 17:46 98.5 F 79 16 119/79 95 Intake and Output 02/10/18 02/10/18 02/10/18 06:59 14:59 22:59 Intake Total 460 / 460 0 / 0 Balance 460 / 460 0 / 0 Intake: Oral 360 / 360 0 / 0 Oral Supplement 100 / 100 Other: # Voids 2 1 # Bowel Movements 0 Weight 56.9 kg Patient Weight 02/11/18 06:59 Weight 56.9 kg Labs reviewed. Review of Systems All other systems reviewed negative except as stated in HPI Mental Status Examination Appearance: Disheveled Consciousness: Alert Orientation: Person Motor Activity: Other (No abnormal motor movements noted.) Speech: Slow Language: Other (limited sample) Attention and Concentration: Inadequate Mood: Oppositional Affect: Irritable, Blunt Thought Process & Associations: Other (limited sample) Thought Content: Delusional Hallucination Type: Other (Remains internally stimulated) Delusion Type: Paranoid Suicidal Ideation: No Homicidal Ideation: No Insight: Poor Judgment: Poor Mental Status Exam Remarks: MSE limited due to limited verbal sample. Assessment and Plan - Assessment (1) Schizophrenia, paranoid type Code(s): F20.0 - Paranoid schizophrenia Status: Acute - Plan Plan: Titrate clozapine to 50 mg in the morning and 200 mg at bedtime to target psychotic symptoms. Continue weekly CBCs. I will taper patient's Haldol to 10 mg twice daily to avoid overmedicating the patient and continue his Ativan as ordered. I will request PT evaluation as nurse has some concerns about patient' s gait. Follow up dietitian consultation. Continue to monitor on the inpatient unit. Continue other medications and care as ordered. Justification for Continued Inpatient Stay: Medication changes. Impairment in reality construction. High risk for decompensation in less restrictive environment. Discharge Planning: Possibly return to facility with outpatient follow-up, although state psychiatric hospitalization represents a backup plan. Request Healthcare Surrogate/Guardian Advocate?: Yes
[2018-02-11] MEDS: Levothyroxine 50 MCG Tablet PO SCH (06:28)
[2018-02-11] MEDS: LORazepam 0.5 MG Tablet PO SCH ×2 (08:49→20:56)
--- NOTE | 2018-02-11 09:44 | P.PNPSY ---
Subjective Chief Complaint: Psychosis Remarks: Patient seen and examined. Chart reviewed. Case discussed with nursing staff who reports that the patient was noted to be pacing up and down the halls. Nurse notes that this occurred when his roommate had a visitor and posits that the visitor may have exacerbated the patient's paranoia. On my exam, I find the patient in his room. He is sleeping fairly soundly and can be awakened only for a brief interaction today. He seems more or less unchanged relative to recent visits. Besides some possible sedation, no evident side effects from medications. No signs of physical distress. Vital Signs Temp Resp BP Pulse Ox 02/11/18 05:54 97.2 F L 18 127/70 97 Intake and Output 02/10/18 02/11/18 02/11/18 22:59 06:59 14:59 Intake Total 240 / 240 Balance 240 / 240 Intake: Oral 240 / 240 Other: # Voids 1 Labs reviewed. No new labs. Review of Systems All other systems reviewed negative except as stated in HPI Mental Status Examination Appearance: Disheveled Consciousness: Asleep Orientation: Person Motor Activity: Other (No motor abnormalities noted) Speech: Other (Limited sample) Affect: Flat Insight: Poor Judgment: Poor Mental Status Exam Remarks: MSE limited as patient is somewhat sedated today. Assessment and Plan - Assessment (1) Schizophrenia, paranoid type Code(s): F20.0 - Paranoid schizophrenia Status: Acute - Plan Plan: I will discontinue the remainder of patient's Haldol out of concern for excessive sedation. To consider further titration of clozapine over the weekend. Continue weekly CBCs for clozapine therapy. Also to consider decreasing dose of Cogentin as, now that patient is off of Haldol, he may not require so high a dose. Counselor has obtained an old medication list from when the patient was reportedly more stable from his facility, and I note that this includes a mood stabilizer (Depakote) as well as an antidepressant (Lexapro ) in addition to a robust dose of antipsychotic. To consider adding a mood stabilizer or antidepressant to patient's regimen. Awaiting dietitian consultation. Continue to monitor on the inpatient unit. Continue other medications and care as ordered. Justification for Continued Inpatient Stay: Medication changes. Risk for decompensation in less restrictive environment. Discharge Planning: Return to facility with outpatient follow-up versus state psychiatric hospitalization. Request Healthcare Surrogate/Guardian Advocate?: Yes
--- NOTE | 2018-02-11 15:12 | P.DIET ---
Nutritional Evaluation Type of nutrition evaluation: initial Nutrition consult regarding: Diet Evaluation Nutrition screening: Poor [place], [facility] [place]09[place]18 [facility] [place] Subjective Barriers to Nutrition: Refuses to eat at times Subjective Comments: Pt sleeping through two attempts to wake him. TINY Dougherty woke this pt and he is selectively mute. Pt is known to this Clinician from a previous visit here where the pt was receiving Ensure, Double Portions, whole milk and yogurt w/ meals per his request. Objective - Diagnosis Schizophrenia, Risk for Elopement - Objective Home body weight: 65.4 kg % IBW: 75 Body Weight Used for Calculations: Actual (Admission wt 63.5kg used for Assessment here) Energy Needs - Lower Range (kCal/kg): 30 Energy Needs - Upper Range (kCal/kg): 35 Lower Limit kCal/kg (kCals): 1,905 Upper Limit kCal/kg (kCals): 2,223 Lower Limit Protein Factor (Grams per Kg): 1.2 Upper Limit Protein Factor (Grams per Kg): 1.5 Lower Protein Needs (Protein): 76 Upper Protein Needs (Protein): 95 Dietitian Reviewed in Medical Record: Current diet, Curent medications, Intake & Output, Labs, Medical history Diet Order: Regular Oral Diet Intake Amount: Poor <50% Objective Comments: PMH includes: Dementia, HLD, hypothyroidism, Schizophrenia A1C 5.1 Assessment Assessment: Pt is at nutrition risk r/t poor po intake and wt loss 6.8kg this admission. Pt non-verbal when visited. Plan to send foods/liquids pt requested during a previous admission here-Ensure, yogurt milk. Send Ensure Enlvie TID(= 350 kcal and 20g Portein per serving). [place] pt's food preferences as available. Labs reviewed. Dietitian following. Recommendations: 1. Plan to send foods/liquids pt requested during a previous admission here- Ensure, yogurt milk 2. Plan to send Ensure Enlvie TID 3. [place] pt's food preferences as available 4. Dietitian following Dietitian to Monitor: Lab values, Supplement acceptance, Intake & Output, Weight change, PO Intake, Medical course
[2018-02-11] MEDS: Melatonin 5 MG Tablet PO PRN (20:57)
[2018-02-12] MEDS: Levothyroxine 50 MCG Tablet PO SCH ×2 (05:56→05:59)
[2018-02-12] MEDS: LORazepam 0.5 MG Tablet PO SCH ×4 (08:34→20:26)
--- NOTE | 2018-02-12 11:45 | P.PNPSY ---
Subjective Chief Complaint: Psychosis Remarks: Pt seen and discussed with staff. Chart reviewed. Staff report that he remains psychotic and disorganized. He has been pacing and staring at wall while laughing inappropriate and has to be redirected from inappropriate behaviors. He refused ativan for catatonia this morning. He remains internally stimulated. He rambles during interview and is observed to be responding to internal stimuli. Mental Status Examination Appearance: Disheveled Consciousness: Asleep Orientation: Person Motor Activity: Other (No motor abnormalities noted) Speech: Other (Limited sample) Language: Other (limited sample) Fund of Knowledge: Inadequate Attention and Concentration: Inadequate Memory: Impaired Mood: Oppositional Affect: Flat Thought Process & Associations: Other (limited sample) Thought Content: Delusional Hallucination Type: Other (Remains internally stimulated) Delusion Type: Paranoid Suicidal Ideation: No Suicidal Plan: No Suicidal Intention: No Homicidal Ideation: No Homicidal Plan: No Homicidal Intention: No Insight: Poor Judgment: Poor Assessment and Plan - Assessment (1) Schizophrenia, paranoid type Code(s): F20.0 - Paranoid schizophrenia Status: Acute - Plan Plan: Continue current tx plan Justification for Continued Inpatient Stay: psychosis Request Healthcare Surrogate/Guardian Advocate?: Yes
[2018-02-12] MEDS: Melatonin 5 MG Tablet PO PRN (20:26)
[2018-02-13] MEDS: Levothyroxine 50 MCG Tablet PO SCH ×3 (06:12→08:32)
[2018-02-13] MEDS: LORazepam 0.5 MG Tablet PO SCH ×2 (08:32→20:53)
--- NOTE | 2018-02-13 08:47 | P.PNPSY ---
Subjective Chief Complaint: Psychosis Remarks: Chart reviewed and discussed with nursing staff. Patient is in his bed and incontinent. He wanted to walk to the bathroom but his gait is unsteady. He appears internally stimulated and distant. He avoids eye contact. He was assisted to the day room and ate a full breakfast. He continues to be selectively mute. He will talk to some staff. Will order Ensure to supplement his diet and he is not taking in sufficient calories. Review of Systems All other systems reviewed negative except as stated in HPI Mental Status Examination Appearance: Disheveled Consciousness: Asleep Orientation: Person Motor Activity: Other (No motor abnormalities noted) Speech: Other (Limited sample) Language: Other (limited sample) Fund of Knowledge: Inadequate Attention and Concentration: Inadequate Memory: Impaired Mood: Sad Affect: Flat, Blunt Thought Process & Associations: Other (limited sample) Thought Content: Delusional Hallucination Type: Other (Remains internally stimulated) Delusion Type: Paranoid Suicidal Ideation: No Suicidal Plan: No Suicidal Intention: No Homicidal Ideation: No Homicidal Plan: No Homicidal Intention: No Insight: Poor Judgment: Poor Assessment and Plan - Assessment (1) Schizophrenia, paranoid type Code(s): F20.0 - Paranoid schizophrenia Status: Acute - Plan Plan: Continue current tx plan Justification for Continued Inpatient Stay: Moving patient to a less restrictive environment may result in his decompensation. Request Healthcare Surrogate/Guardian Advocate?: Yes
[2018-02-13] MEDS: Melatonin 5 MG Tablet PO PRN (20:54)
[2018-02-14] MEDS: Levothyroxine 50 MCG Tablet PO SCH (05:53)
[2018-02-14] MEDS: LORazepam 0.5 MG Tablet PO SCH ×2 (08:15→20:22)
--- NOTE | 2018-02-14 11:14 | P.PNPSY ---
Subjective Chief Complaint: Psychosis Remarks: Patient seen and examined with nurse. Chart reviewed. Case discussed with nursing staff. Some ongoing issues with enuresis noted. I have reordered urinalysis. Ongoing bizarre behaviors while awake per nursing staff. On my examination today, the patient is dozing in his room. He does awaken and mutters a few words before arising abruptly and going to the bathroom. He remains somewhat oppositional and negativistic. No evident side effects from medications besides possibly sedation. No physical complaints. Vital Signs Temp Pulse Resp BP Pulse Ox 02/14/18 05:39 97.8 F 105 H 18 135/85 97 02/13/18 17:14 98.6 F 96 H 16 107/63 96 Intake and Output 02/13/18 02/14/18 02/14/18 22:59 06:59 14:59 Intake Total 120 / 120 0 / 0 Balance 120 / 120 0 / 0 Intake: Oral 120 / 120 0 / 0 Other: # Voids 1 Labs reviewed. No new labs. Review of Systems unobtainable due to mental condition Mental Status Examination Appearance: Disheveled Consciousness: Asleep Orientation: Person Motor Activity: Other (No motor abnormalities noted) Speech: Other (Limited) Language: Other (limited sample) Fund of Knowledge: Inadequate Attention and Concentration: Inadequate Memory: Impaired Mood: Oppositional Affect: Flat, Blunt Thought Process & Associations: Disorganized Thought Content: Hallucinations Hallucination Type: Other (Remains internally preoccupied) Delusion Type: Other (Suspect ongoing paranoia) Suicidal Ideation: No Homicidal Ideation: No Insight: Poor Judgment: Poor Assessment and Plan - Assessment (1) Schizophrenia, paranoid type Code(s): F20.0 - Paranoid schizophrenia Status: Acute - Plan Plan: Patient is frequently sleeping at the time of my evaluation in the mid morning but is reportedly up and engaging in bizarre behavior later in the afternoon per nursing staff. I am concerned about excessive morning sedation from medications, and sedation from medications may also be contributing to enuresis. I will divide clozapine dose into 3 divided doses of 100 mg each and taper Cogentin to 2 mg twice daily as patient shows no signs of EPS on clozapine monotherapy. I will continue Ativan as ordered. Continue weekly CBCs. Dietitian input noted and appreciated. Continue other medications and care as ordered. Justification for Continued Inpatient Stay: Medication changes. Impairment in reality construction. High risk for decompensation in less restrictive setting. Discharge Planning: If condition can be stabilized will plan for return to facility with outpatient psychiatric follow-up. Otherwise, we will plan for state psychiatric hospitalization. Request Healthcare Surrogate/Guardian Advocate?: Yes
[2018-02-14] MEDS: Benztropine 2 MG Tablet PO SCH (20:22)
[2018-02-15] MEDS: Levothyroxine 50 MCG Tablet PO SCH (06:01)
[2018-02-15 06:47] LABS: Baso % (Auto) 0.2 % (0.0-2.0); Eos # (Auto) 0.1 th/mm3 (0.0-0.4); Eos % (Auto) 2.3 % (0.0-4.0); Hematocrit 41.2 % (39.0-51.0); Hemoglobin 14.4 gm/dL (13.0-17.0); Lymph # (Auto) 1.4 th/mm3 (1.0-4.8); Lymph % (Auto) 27.2 % (9.0-44.0); Mean Corpuscular HGB Conc 34.9 % (32.0-36.0); Mean Corpuscular Hemoglobin 31.6 pg (27.0-34.0); Mean Corpuscular Volume 90.4 fL (80.0-100.0); Mean Platelet Volume 7.7 fL (7.0-11.0); Mono # (Auto) 0.3 th/mm3 (0.0-0.9); Mono % (Auto) 6.5 % (0.0-8.0); Neut # (Auto) 3.2 th/mm3 (1.8-7.7); Neut % (Auto) 63.8 % (16.0-70.0); Platelet Count 161 th/mm3 (150-450); Red Blood Count 4.56 mil/mm3 (4.50-5.90)
[2018-02-15] MEDS: LORazepam 0.5 MG Tablet PO SCH ×2 (09:55→20:56)
[2018-02-15] MEDS: Benztropine 2 MG Tablet PO SCH (09:55)
--- NOTE | 2018-02-15 14:20 | P.DIET ---
Nutritional Evaluation Type of nutrition evaluation: follow-up Nutrition consult regarding: Diet Evaluation Nutrition screening: Poor PO Intake, [facility] [place] Scre[place] comments: 02/13/18 [facility] [place] Poor PO Intake 02/09/18 [facility] [place] Poor PO Intake Subjective Barriers to Nutrition: Refuses to eat at times Subjective Comments: Pt observed eating lunch by himself in the dayroom; pt taking sips of milk and Ensure from his lunch meal. Brought forward from previous note:Pt sleeping through two attempts to wake him. TINY Dougherty woke this pt and he is selectively mute. Pt is known to this Clinician from a previous visit here where the pt was receiving Ensure, Double Portions, whole milk and yogurt w/meals per his request. Objective - Diagnosis Schizophrenia, Risk for Elopement - Objective [place] body weight: 65.4 kg % IBW: 75 Body Weight Used for Calculations: Actual (Admission wt 63.5kg used for Assessment here) Energy Needs - Lower Range (kCal/kg): 30 Energy Needs - Upper Range (kCal/kg): 35 Lower Limit kCal/kg (kCals): 1,905 Upper Limit kCal/kg (kCals): 2,223 Lower Limit Protein Factor (Grams per Kg): 1.2 Upper Limit Protein Factor (Grams per Kg): 1.5 Lower Protein Needs (Protein): 76 Upper Protein Needs (Protein): 95 Dietitian Reviewed in Medical Record: Current diet, Curent medications, Intake & Output, Labs, Medical history Diet Order: Regular Oral Diet Intake Amount: Poor <50% Objective Comments: PMH includes: Dementia, HLD, hypothyroidism, Schizophrenia A1C 5.1 Meds include: Cogentin, Clozapine, Synthroid, Ativan, Pravachol Feeding - Current PO Supplement Current Supplement: Ensure Enlive Current Frequency of Supplement: Three times a day Current kCals Provided by Supplement: 350 Current Protein Provided by Supplement: 20 Assessment Assessment: Pt continues at nutrition risk r/t poor po intake and wt loss 6.8kg this admission. Pt is now eating small amounts of food w/variable po intake 0% to 100 % for meals. Continue Ensure Enlive TID. [place] pt's food preferences as available. Labs reviewed. Dietitian following. Recommendations: 1. Continue Ensure Enlive TID 2. [place] pt's food preferences as available 3. Dietitian following Dietitian to Monitor: Lab values, Supplement acceptance, Intake & Output, Weight change, PO Intake, Medical course
--- NOTE | 2018-02-15 14:33 | P.PNPSY ---
Subjective Chief Complaint: Psychosis Remarks: Patient seen and examined with nurse. Chart reviewed. Case discussed with nursing staff. Patient noted to be bizarre with speech bordering on word salad at times. He does follow commands and is compliant with medications per nursing staff. Case discussed in treatment team. Nurse and I find the patient at [facility]. He is draped over a chair in the corner and, although listening, does not otherwise seem engaged in the group going on around him. He is resistant to leaving the group for interview and so our interaction is somewhat limited. He does seem more alert and interactive today. However, he is fairly disorganized, and his speech is largely nonsensical. No physical complaints or signs of physical distress. Vital Signs Temp Pulse Resp BP Pulse Ox 02/15/18 06:00 98.4 F 92 H 17 124/69 95 02/14/18 18:24 98.2 F 115 H 18 131/82 Intake and Output 02/15/18 02/15/18 02/15/18 06:59 14:59 22:59 Intake Total 240 / 240 Balance 240 / 240 Intake: Oral 240 / 240 Laboratory Results - last 24 hr 02/15/18 06:02 WBC 5.0 RBC 4.56 Hgb 14.4 Hct 41.2 MCV 90.4 MCH 31.6 MCHC 34.9 RDW 13.0 Plt Count 161 MPV 7.7 Neut % (Auto) 63.8 Lymph % (Auto) 27.2 [place] % (Auto) 6.5 Eos % (Auto) 2.3 Baso % (Auto) 0.2 Neut # (Auto) 3.2 Lymph # (Auto) 1.4 [place] # (Auto) 0.3 Eos # (Auto) 0.1 Baso # (Auto) 0.0 WBC Differential . Differential Comment Auto diff final Labs reviewed. ANC remains adequate for clozapine therapy. Review of Systems unobtainable due to mental condition Mental Status Examination Appearance: Disheveled Consciousness: Alert Orientation: Person Motor Activity: Other (No hand tremor, no cogwheeling, no dystonias, no dyskinesias, no other motor abnormalities noted.) Speech: Other (Limited) Language: Other (limited sample) Fund of Knowledge: Inadequate Attention and Concentration: Inadequate Memory: Impaired Mood: Oppositional Affect: Flat Thought Process & Associations: Disorganized Thought Content: Hallucinations Hallucination Type: Other (Internally stimulated) Delusion Type: Other (Difficult to assess given thought disorganization but suspect ongoing underlying paranoia.) Suicidal Ideation: No Homicidal Ideation: No Insight: Poor Judgment: Poor Assessment and Plan - Assessment (1) Schizophrenia, paranoid type Code(s): F20.0 - Paranoid schizophrenia Status: Acute - Plan Plan: Continue to taper Cogentin as patient has no signs of EPS on exam, and this agent may be contributing to altered mental status. Continue clozapine as ordered. We have not seen much benefit yet from this medication. We might consider further titration of this agent versus holding at current dose and checking a clozapine level once it reaches steady state. Continue weekly CBCs. Continue to monitor on the inpatient unit. Continue other medications and care as ordered. Justification for Continued Inpatient Stay: Medication changes. Impairment in reality construction. High risk for decompensation in less restrictive environment. Discharge Planning: Pending psychiatric stabilization. May require state psychiatric hospitalization. Request Healthcare Surrogate/Guardian Advocate?: Yes
--- NOTE | 2018-02-15 15:45 | P.TTN ---
- Patient Problems Problems: 1. Discharge planning 2. Medication compliance 3. Knowledge deficit 4. Lack of coping skills - Progress Toward Goals Provider Present: Dr. Silas Zhang, Dr. Neha Tobin, Dr. Rocío Peng Provider Input: 02/15/2018; patient's medication are being adjusted to address mood. 02/08/2018; per doctor, med adjustment to address mood/behavior; patient might need to be staff for State if he continues to show limited improvement. : Pt undergoing coodinated titration of clozapin with corresponding reduction of haldol, BP continues to be monitored. Pt expected to discharge to previous location ([facility]) when stable. Pt is currently not stable to return. 01/26/18: Remain for further stabilization Nurse(s) Present: RN Nurse Input: 02/15/2018; patient has a flat mood, he is eating and taking meds requires redirection with thoughts. 02/08/2018; per RN patient is compliant with meds, and meals continues to display agitation requiring prompting and redication. 01/26/18: Med compliant, anxious but cooperative. Psychiatric Counselors Present: Gilberto Gonzalez Jr., [facility], Teri Viecnte, [facility], Other (Siria Vogt) Psychiatric Therapist Input: 02/15/2018; DC planning consist of placement back to [facility]. 02/08/2018: Counselor will complete State package if and when order by doctor; Carlene from [facility], reports she was unable to complete an assessment on today patient was unable to be arouse to engage with her assessment. 01/28/18: Pt is cooperative with medication adjustment, continues not to meet criteria to return to [facility]. 01/26/18: Cooperative, no insight, internally stimulated, needs more time, has place to go. Group Spec/RT/OT/MELCHOR Present: Delfina Luu, GPS, RUIZ Lee, Elliott Donald, OT, RUIZ Petit Group Spec/RT/OT/MELCHOR Input: 02/15/2018; Patient has not attended groups or activities. 02/08/2018; per OT patient is unable to appropriately attend groups due to his behavior. 01/28/18: pt does not participate or attend groups. 10/3/18: new admission as of 01/25/18. Will encourage the patient to attend and participate in the group activities. - Discharge Plan Pt continues to not meet criteria to return to [facility], meds being titrated to stabilize pt. - Documentation Scribe: Elliott Donald MS, OTR Teaching Recipient: Patient
[2018-02-16] MEDS: Levothyroxine 50 MCG Tablet PO SCH (05:30)
[2018-02-16] MEDS: LORazepam 0.5 MG Tablet PO SCH ×2 (08:48→21:00)
--- NOTE | 2018-02-16 15:58 | P.PNPSY ---
Subjective Chief Complaint: Psychosis Remarks: Patient seen and examined with nurse. Chart reviewed. Patient ate 0, 25 and 15 % of meals yesterday, respectively, although nursing staff tells me the patient' s oral intake is improved today. Case discussed with nursing staff who reports patient has been medication compliant but continues to exhibit bizarre behavior at intervals. On my examination today, I find the patient sitting in the day area with his head down on the table. He remains fairly hypoverbal and flat. He appears internally preoccupied. He is watchful and paranoid. No reported side effects from medications. No physical complaints. Vital Signs Temp Pulse Resp BP Pulse Ox 02/16/18 06:00 99.0 F 86 17 119/61 93 L 02/15/18 17:30 98.3 F 99 H 18 104/63 96 Intake and Output 02/16/18 02/16/18 02/16/18 06:59 14:59 22:59 Intake Total 340 / 340 Balance 340 / 340 Intake: Oral 240 / 240 Oral Supplement 100 / 100 Labs reviewed. No new labs. Review of Systems unobtainable due to mental condition Mental Status Examination Appearance: Disheveled Consciousness: Alert Orientation: Person Motor Activity: Other (No motoric abnormalities noted) Speech: Other (Minimal spontaneous speech) Language: Other (limited sample) Fund of Knowledge: Inadequate Attention and Concentration: Inadequate Memory: Impaired Mood: Oppositional Affect: Flat Thought Process & Associations: Disorganized Thought Content: Hallucinations Hallucination Type: Other (Remains internally preoccupied) Delusion Type: Paranoid Suicidal Ideation: No Homicidal Ideation: No Insight: Poor Judgment: Poor Assessment and Plan - Assessment (1) Schizophrenia, paranoid type Code(s): F20.0 - Paranoid schizophrenia Status: Acute - Plan Plan: Titrate nighttime dose of clozapine to 150 mg to target ongoing psychotic symptoms. Continue weekly CBCs for clozapine therapy. Nursing has struggled to obtain urinalysis sample from the patient given his disorganization but will continue to attempt to do so. My clinical suspicion for a urinary tract infection or other abnormality that might be detected by urinalysis is not high enough to subject the patient to catheterization to obtain sample. Continue to monitor on the inpatient unit. Continue other medications and care as ordered. Justification for Continued Inpatient Stay: Medication changes. Impairment in reality construction. High risk for decompensation in less restrictive environment. Discharge Planning: Possible [facility] referral. Request Healthcare Surrogate/Guardian Advocate?: Yes
[2018-02-17] MEDS: Levothyroxine 50 MCG Tablet PO SCH (06:28)
[2018-02-17] MEDS: LORazepam 0.5 MG Tablet PO SCH ×2 (09:17→20:43)
--- NOTE | 2018-02-17 12:04 | P.PNPSY ---
Subjective Chief Complaint: Psychosis Remarks: Patient seen and examined. Chart reviewed. Patient is noted to have eaten 50% of dinner last night, but daytime meals are not charted. I do note that the patient has gained about 3 kg in the last week. Case discussed with nursing staff who reports ongoing bizarre behaviors at times. He was reportedly trying to eat his food with a crayon. On my examination today, the patient is sitting in the day area. His eye contact is poor, and he remains fairly hypoverbal. He remains internally stimulated. No evident side effects from medications. No EPS. No physical complaints. Vital Signs Temp Pulse Resp BP Pulse Ox 02/17/18 05:47 97.7 F 88 18 112/67 97 02/16/18 18:00 97.7 F 88 18 11267 97 Intake and Output 02/16/18 02/17/18 02/17/18 22:59 06:59 14:59 Intake Total 240 / 240 Balance 240 / 240 Intake: Oral 240 / 240 Other: # Voids 1 Weight 59.9 kg Labs reviewed. No new labs. Review of Systems unobtainable due to mental condition Mental Status Examination Appearance: Disheveled Consciousness: Alert Orientation: Person Motor Activity: Other (No hand tremor, no cogwheeling, no dystonia, no dyskinesia, no other motor abnormalities noted.) Speech: Other (Minimal spontaneous speech) Language: Other (limited sample) Fund of Knowledge: Inadequate Attention and Concentration: Inadequate Memory: Impaired Mood: Oppositional (Remains somewhat negativistic) Affect: Flat Thought Process & Associations: Disorganized Thought Content: Hallucinations Hallucination Type: Other (Internally stimulated) Delusion Type: Paranoid Suicidal Ideation: No Homicidal Ideation: No Insight: Poor Judgment: Poor Assessment and Plan - Assessment (1) Schizophrenia, paranoid type Code(s): F20.0 - Paranoid schizophrenia Status: Acute - Plan Plan: Discontinue remainder of patient's Cogentin as patient shows no signs of EPS and out of concern that Cogentin may be worsening mental status. Could also consider tapering and discontinuing Ativan for the same reason. I will continue the patient's clozapine, although we might consider further titration of this agent. Continue weekly CBCs. Continue other medications and care as ordered. Continue to monitor on the inpatient unit. Justification for Continued Inpatient Stay: Medication changes. Risk for decompensation in less restrictive environment. Discharge Planning: [facility] referral. Request Healthcare Surrogate/Guardian Advocate?: Yes
[2018-02-17] MEDS: Melatonin 5 MG Tablet PO PRN (20:42)
[2018-02-18] MEDS: Levothyroxine 50 MCG Tablet PO SCH (06:05)
[2018-02-18] MEDS: LORazepam 0.5 MG Tablet PO SCH ×2 (09:08→21:18)
--- NOTE | 2018-02-18 13:02 | P.PNPSY ---
Subjective Chief Complaint: Psychosis Remarks: Patient seen and examined. Chart reviewed. Case discussed with nursing staff who reports patient had a single episode of emesis overnight but has had no further GI distress. Case discussed in treatment team. On my examination today , the patient denies any ongoing nausea. He is somewhat more interactive today , although his thought process remains fairly disorganized. He denies any suicidal or homicidal ideation. No reported side effects from medications. He has no EPS or other motor abnormalities on exam. No physical complaints. Vital Signs Temp Pulse Resp BP Pulse Ox 02/18/18 06:31 99.1 F 115 H 16 136/87 95 02/17/18 17:55 97 F L 107 H 18 120/58 L 97 Intake and Output 02/18/18 02/18/18 02/18/18 06:59 14:59 22:59 Intake Total 0 / 0 Balance 0 / 0 Intake: Oral 0 / 0 Other: # Voids 1 Labs reviewed. No new labs. Review of Systems All other systems reviewed negative except as stated in HPI (Limitation: Poor historian) Mental Status Examination Appearance: Disheveled Consciousness: Alert Orientation: Person Motor Activity: Other (No motor abnormalities noted) Speech: Other (Limited sample) Language: Other (limited sample) Fund of Knowledge: Inadequate Attention and Concentration: Inadequate Memory: Impaired Mood: Other (Calm) Affect: Flat Thought Process & Associations: Disorganized Thought Content: Hallucinations Hallucination Type: Other (Remain somewhat internally preoccupied) Delusion Type: Paranoid (Perhaps decreasing) Suicidal Ideation: No Suicidal Plan: No Suicidal Intention: No Homicidal Ideation: No Homicidal Plan: No Homicidal Intention: No Insight: Poor Judgment: Poor Assessment and Plan - Assessment (1) Schizophrenia, paranoid type Code(s): F20.0 - Paranoid schizophrenia Status: Acute - Plan Plan: Patient seems to be improving with reduction in medications, such as Cogentin, that have the potential to worsen mental status. I will titrate the patient's clozapine to 100 mg morning and afternoon and 200 mg at bedtime to target residual psychotic symptoms. I will taper patient's Ativan to 0.5 mg twice daily in hopes that mental status will improve with tapering of this agent; I also do not see this medication is providing much in the way of clinical benefit to the patient. Continue to monitor on the inpatient unit. Continue other medications and care as ordered. Justification for Continued Inpatient Stay: Medication changes. Impairment in reality construction. Risk for decompensation in less restrictive environment. Discharge Planning: Counselor working on placement for patient. Patient may have a bed at [facility] time next week. [facility] is a backup plan. Request Healthcare Surrogate/Guardian Advocate?: Yes
--- NOTE | 2018-02-18 13:18 | P.TTN ---
- Patient Problems Problems: 1. Discharge planning 2. Medication compliance 3. Knowledge deficit 4. Lack of coping skills - Progress Toward Goals Provider Present: Dr. Silas Zhang, Dr. Neha Tobin, Dr. Rocío Peng Provider Input: 02/18/2018; Patient's medication has been adjusted. 02/15/2018 ; patient's medication are being adjusted to address mood. 02/08/2018; per doctor, med adjustment to address mood/behavior; patient might need to be staff for State if he continues to show limited improvement. : Pt undergoing coodinated titration of clozapin with corresponding reduction of haldol, BP continues to be monitored. Pt expected to discharge to previous location ( [facility]) when stable. Pt is currently not stable to return. 01/26/18: Remain for further stabilization Nurse(s) Present: RN Nurse Input: 02/18/2018; patient is eating and taking his medication, no behavior concerns. 02/15/2018; patient has a flat mood, he is eating and taking meds requires redirection with thoughts. 02/08/2018; per RN patient is compliant with meds, and meals continues to display agitation requiring prompting and redication. 01/26/18: Med compliant, anxious but cooperative. Psychiatric Counselors Present: Gilberto Gonzalez Jr., [facility], Teri Vicente, [facility], Other (Siria Vogt) Psychiatric Therapist Input: 02/18/2018; patient will be dc to [facility] on 02/21/2018. 02/15/2018; DC planning consist of placement back to [facility]. 02/08/2018: Counselor will complete State package if and when order by doctorVasu Concepcion from [facility], reports she was unable to complete an assessment on today patient was unable to be arouse to engage with her assessment. 01/28/18: Pt is cooperative with medication adjustment, continues not to meet criteria to return to [facility]. 01/26/18: Cooperative, no insight, internally stimulated, needs more time, has place to go. Group Spec/RT/OT/MELCHOR Present: Delfina Luu, GPS, RUIZ Lee, Elliott Donald, OT, RUIZ Petit Group Spec/RT/OT/MELCHOR Input: 02/18/2018: patient has not participate [facility] activities or groups. 02/15/2018; Patient has not attended groups or activities. 02/08/2018; per OT patient is unable to appropriately attend groups due to his behavior. 01/28/18: pt does not participate or attend groups. 01/26/18: new admission as of 01/25/18. Will encourage the patient to attend and participate in the group activities. - Discharge Plan Pt continues to not meet criteria to return to [facility], meds being titrated to stabilize pt. - Documentation Scribe: Elliott Donald MS, OTR Teaching Recipient: Patient
[2018-02-18] MEDS: Melatonin 5 MG Tablet PO PRN (21:18)
[2018-02-19] MEDS: Levothyroxine 50 MCG Tablet PO SCH (06:17)
[2018-02-19] MEDS: LORazepam 0.5 MG Tablet PO SCH ×2 (08:32→20:28)
--- NOTE | 2018-02-19 11:12 | P.PNPSY ---
Subjective Chief Complaint: Psychosis Remarks: Patient seen and examined with nurse. Chart reviewed. Case discussed with nursing staff. On my examination today, I find the patient dozing in his room. He does awaken readily but is mute today despite repeated efforts to engage him in conversation. I have explained to him possible discharge plan. No evident side effects from medications. No evidence of physical distress. Vital Signs Temp Pulse Resp BP Pulse Ox 02/19/18 06:00 99.1 F 110 H 18 108/68 93 L 02/18/18 18:50 97.9 F 119 H 18 121/75 96 Intake and Output 02/18/18 02/19/18 02/19/18 22:59 06:59 14:59 Intake Total 360 / 360 Balance 360 / 360 Intake: Oral 360 / 360 Other: # Voids 3 Labs reviewed. No new labs. Review of Systems unobtainable due to mental condition Mental Status Examination Appearance: Disheveled Consciousness: Alert Orientation: Person Motor Activity: Other (No motor abnormalities noted. No signs of any withdrawal from decreased dose of benzodiazepine noted.) Speech: Other (Mute) Affect: Flat Delusion Type: Paranoid (Perhaps decreasing) Insight: Poor Judgment: Poor Mental Status Exam Remarks: MSE limited as patient is mute today. No posturing, stereotypies or other signs of catatonia besides the muteness, which may be selective. Assessment and Plan - Assessment (1) Schizophrenia, paranoid type Code(s): F20.0 - Paranoid schizophrenia Status: Acute - Plan Plan: Continue clozapine as ordered. Continue weekly CBCs for clozapine therapy. Continue decreased dose of Ativan. Continue to monitor on the inpatient unit. Continue other medications and care as ordered. Justification for Continued Inpatient Stay: Risk for decompensation in less restrictive environment. Discharge Planning: Possible discharge to nursing facility beginning of next week. Request Healthcare Surrogate/Guardian Advocate?: Yes
[2018-02-20] MEDS: Levothyroxine 50 MCG Tablet PO SCH (05:25)
[2018-02-20] MEDS: LORazepam 0.5 MG Tablet PO SCH ×2 (08:34→20:12)
--- NOTE | 2018-02-20 09:34 | P.PNPSY ---
Subjective Chief Complaint: Psychosis Remarks: Chart reviewed and discussed with nursing staff. TINY Sanchez and found patient in his bed. He continues to be mute and will not respond to questions. Encouraged to spend more time outside of the room. Patient does not appear in any distress. Nursing staff state that once in a while he will answer a question. Review of Systems All other systems reviewed negative except as stated in HPI Mental Status Examination Appearance: Disheveled Consciousness: Alert Orientation: Person Motor Activity: Other (No motor abnormalities noted. No signs of any withdrawal from decreased dose of benzodiazepine noted.) Speech: Other (Mute) Language: Other (limited sample) Fund of Knowledge: Inadequate Attention and Concentration: Inadequate Memory: Impaired Mood: Other (Calm) Affect: Flat Thought Process & Associations: Disorganized Thought Content: Hallucinations Hallucination Type: Other (Remain somewhat internally preoccupied) Delusion Type: Paranoid (Perhaps decreasing) Suicidal Ideation: No Suicidal Plan: No Suicidal Intention: No Homicidal Ideation: No Homicidal Plan: No Homicidal Intention: No Insight: Poor Judgment: Poor Assessment and Plan - Assessment (1) Schizophrenia, paranoid type Code(s): F20.0 - Paranoid schizophrenia Status: Acute - Plan Plan: Continue current treatment plan. Justification for Continued Inpatient Stay: Moving patient to a less restrictive environment may result in his decompensation. Request Healthcare Surrogate/Guardian Advocate?: Yes
[2018-02-20] MEDS: Melatonin 5 MG Tablet PO PRN (20:12)
[2018-02-21] MEDS: Levothyroxine 50 MCG Tablet PO SCH (05:58)
[2018-02-21] MEDS: LORazepam 0.5 MG Tablet PO SCH (09:31)
--- NOTE | 2018-02-21 10:09 | P.PNPSY ---
Subjective Chief Complaint: Psychosis Remarks: Patient seen and examined. Chart reviewed. Patient ate 0% of breakfast, 75% of lunch and 100% of dinner yesterday. On my examination today, the patient presents as selectively mute. When I ask him to speak with me he says "I already have." Affect is quite flat. No evident side effects from medications. No physical complaints. Vital Signs Temp Pulse Resp BP Pulse Ox 02/21/18 05:45 98.1 F 82 18 108/60 93 L 02/20/18 18:00 97.7 F 109 H 16 118/58 L 98 Intake and Output 02/20/18 02/21/18 02/21/18 22:59 06:59 14:59 Intake Total 900 / 900 Balance 900 / 900 Intake: Oral 900 / 900 Other: # Voids 3 Labs reviewed. No new labs. Review of Systems unobtainable due to mental condition Mental Status Examination Appearance: Disheveled Consciousness: Alert Orientation: Person Motor Activity: Other (No motoric abnormalities noted. No signs of withdrawal noted.) Speech: Other (Primarily mute) Language: Other (Again limited sample) Mood: Other (Calm) Affect: Flat Suicidal Ideation: No Homicidal Ideation: No Insight: Poor Judgment: Poor Mental Status Exam Remarks: MSE limited due to patient being mute. Assessment and Plan - Assessment (1) Schizophrenia, paranoid type Code(s): F20.0 - Paranoid schizophrenia Status: Acute - Plan Plan: Discontinue scheduled Ativan. Continue clozapine as ordered. Weekly CBCs for clozapine therapy. Continue to monitor on inpatient unit. Continue other medications and care as ordered. Justification for Continued Inpatient Stay: Risk for decompensation in less restrictive environment. Discharge Planning: Placement versus state hospitalization. Request Healthcare Surrogate/Guardian Advocate?: Yes
[2018-02-21 18:20] VITALS: PULSE 99
[2018-02-22 06:09] VITALS: BP 105/65; RESP 16; TEMP 98.5; O2SAT 93
[2018-02-22] MEDS: Levothyroxine 50 MCG Tablet PO SCH (06:23)
--- NOTE | 2018-02-22 10:16 | P.DSPSY ---
Psychiatry Discharge Summary Inpatient Psychiatric care?: Yes Advance Directives: Unknown Reason for Unknown:: Due to Patient Condition Mental Health Advance Directive: No Health Care Proxy: No - Admission Admission Date: January 13, 2018 14:06 - Admission Diagnosis (1) Schizophrenia, paranoid type Code(s): F20.0 - Paranoid schizophrenia Brief History: Mr. Bonilla is a 52-year-old male with a history of schizophrenia who was brought into the ED after repeatedly trying to elope from his facility and ending up in the street. He was placed under the [facility] act by the ED provider. Reviewing the electronic medical record, I note that the patient was admitted under my care in October of this year. Patient seen and examined with counselor and nurse. Chart reviewed. Case discussed with nursing staff. On my examination today, the patient is sitting calmly in the day area. He is hypoverbal and his affect is flat. He seems fairly apathetic and has a predominance of negative symptoms. He says that he has not been taking his medications for some time because they are "a waste of time." The medication administration record from his facility seems to indicate that he has at least been provided with his medications. He does appears somewhat internally stimulated. He is disheveled. He gives only 1 or 2 word answers to questions. He says he has been brought back into the hospital because of "stupidity." Psychiatric interview is limited because of patient's degree of psychiatric impairment. I am unable to obtain any past medical, family, chemical dependency or social history from the patient for the same reason. No acute physical complaints. Tobacco Use In Past 30 Days: No How Often Do You Have a Drink Containing Alcohol: Never Hospital Course: The patient was admitted to a locked, inpatient psychiatric unit. Appropriate precautions were in place throughout patient's hospital stay. Patient was seen and examined on the unit by psychiatry and also visited by counselor. Psychotropic medications were adjusted. Patient was started on clozapine therapy, which she tolerated well. There was no evidence of any suicidality or homicidality on the inpatient unit. Counselor has arranged for placement in rehabilitation facility. On the day of discharge: Patient seen and examined with counselor. Chart reviewed. CBC from this morning reviewed. ANC remains adequate for clozapine therapy. Case discussed with nursing staff. No behavioral issues noted overnight. Case discussed in treatment team. Counselor will place the patient on the FACT team wait list. On my examination today, the patient is considerably more interactive. He is calm and cooperative. He denies any suicidal or homicidal ideation. No depressive or hypomanic/manic symptoms. Affect does remain fairly flat, and the patient has significant negative psychotic symptom burden. He denies any audiovisual hallucinations. No delusional material reported. He denies side effects from medications. He says that the medications are "good enough." No physical complaints. Suicide and violence risk assessment on day of discharge both suggest lower imminent risk from mental illness, and the patient's level of function is adequate for planned level of outpatient care. Patient has maximized benefit from this inpatient psychiatric hospital stay. He will be discharged to rehabilitation facility today with psychiatric follow-up as arranged by counselor. Patient is also to follow up with primary care. Patient to return to psychiatric emergency room for any concerning symptoms as part of a general safety plan. I have ordered 2 weeks of weekly CBCs for clozapine therapy with further orders to come from outpatient provider. - Discharge Discharge Date: 02/22/18 - Discharge Diagnosis (1) Paranoid schizophrenia with prominent negative symptoms Diagnosis: Principal Code(s): F20.0 - Paranoid schizophrenia Status: Chronic Discharge Disposition: Rehab facility - Discharge Instructions Discharge Diet: Regular Diet Activities You Can Perform: Weight Bearing As Tolerat - Discharge Time <= 30 minutes Mental Status Examination Appearance: Appropriate (Fair grooming) Consciousness: Alert Orientation: Person, Place (at least) Motor Activity: Other (No hand tremor, no cogwheeling, no dystonia, no dyskinesia, no other motor abnormalities noted.) Speech: Slow Language: Adequate Fund of Knowledge: Inadequate Attention and Concentration: Other (Fair) Memory: Impaired Mood: Other (Calm) Affect: Flat Thought Process & Associations: Intact Thought Content: Appropriate Hallucination Type: None Delusion Type: None Suicidal Ideation: No Suicidal Plan: No Suicidal Intention: No Homicidal Ideation: No Homicidal Plan: No Homicidal Intention: No Insight: Poor Judgment: Poor Mental Status Exam Remarks: Insight and judgment are chronically poor Discharge/Advance Care Plan - Results Vital Signs: Last Vital Signs Temp 98.5 F 02/22/18 06:07 Pulse 99 H 02/22/18 06:07 Resp 16 02/22/18 06:07 BP 105/65 02/22/18 06:07 Pulse Ox 93 L 02/22/18 06:07 Lab Results: Laboratory Results Hemoglobin A1c 5.1 % (4.3-6.0) 01/14/18 08:39 Triglycerides 100 mg/dL (42-150) 01/14/18 08:39 Cholesterol 111 mg/dL (120-200) L 01/14/18 08:39 LDL Cholesterol, Calc 36 mg/dL (0-99) 01/14/18 08:39 HDL Cholesterol 54.6 mg/dL (40.0-60.0) 01/14/18 08:39 Urine Culture Comments Culture not ind 01/23/18 15:06 Summary of Procedures: None done. Pending Results: None - Medications Number of antipsychotic medications at discharge: 1 - Discharge Care Plan Goals to Promote Your Health: * To prevent worsening of your condition and complications * To maintain your health at the optimal level Directions to Meet Your Goals: Take your medications as prescribed Follow your dietary instruction Follow activity as directed Keep your appointments as scheduled Take your immunizations and boosters as scheduled If your symptoms worsen call your PCP, if no PCP go to Urgent Care Center or Emergency Room For 16/11 questions related to your inpatient stay or results of tests pending at discharge, please contact Dr. Lasha Tobin MD at Smoking is Dangerous to Your Health. Avoid second hand smoking
[2018-02-22 10:40] LABS: Baso % (Auto) 0.4 % (0.0-2.0); Eos # (Auto) 0.1 th/mm3 (0.0-0.4); Eos % (Auto) 1.7 % (0.0-4.0); Hematocrit 40.8 % (39.0-51.0); Hemoglobin 13.9 gm/dL (13.0-17.0); Lymph # (Auto) 0.9 th/mm3 (1.0-4.8); Mean Corpuscular HGB Conc 34.1 % (32.0-36.0); Mean Corpuscular Hemoglobin 31.5 pg (27.0-34.0); Mean Corpuscular Volume 92.5 fL (80.0-100.0); Mean Platelet Volume 8.4 fL (7.0-11.0); Mono # (Auto) 0.3 th/mm3 (0.0-0.9); Mono % (Auto) 5.8 % (0.0-8.0); Neut # (Auto) 3.7 th/mm3 (1.8-7.7); Neut % (Auto) 74.1 % (16.0-70.0); Platelet Count 160 th/mm3 (150-450); Red Blood Count 4.41 mil/mm3 (4.50-5.90); Red Cell Distribution Width 12.5 % (11.6-17.2); White Blood Count 4.9 th/mm3 (4.0-11.0)
== END 2018-02-22 14:44 ==
LOC: NEPC 10:52 → NEDA 14:06 → H270 15:13 → H250 01-24 10:55
PROVIDERS: ADMIT Psychiatry & Neurology Psychiatry; ATTEND Psychiatry & Neurology Psychiatry